=== PATIENT | female | born 1955 | race Caucasian/White ===

== ENCOUNTER 2022-11-14 11:55 | Outpatient (OUT) | payer MEDICARE, OTHER, SELFPAY ==
--- NOTE | 2022-11-14 | XR_ITS ---
The [address] [address] Patient Name: CHASE CUBA MRN: [id number] date: 1955 Sex: F Assigned Patient Location: LAB Current Patient Location: LAB Accession/Order Number: [id number] Exam Date: 11/14/2022 11:40 Report Date: 11/14/2022 13:07 At the request of: BRIAN ESPINOSA Procedure: XR chest 2V EXAM: XR chest 2V HISTORY: J84.10 . Patient fell 1 week ago. COMPARISON: None. TECHNIQUE: Upright PA and lateral chest x-ray FINDINGS: The heart is not enlarged and the vasculature is not distended. No acute infiltrate, effusion or pneumothorax is identified. A fracture of the distal right clavicle is suspected. The osseous structures are otherwise grossly intact. IMPRESSION: No acute infiltrate or evidence of cardiac decompensation. A fracture of the distal right clavicle is suspected and probably present. Direct comparison with a previous study is recommended to verify stability is findings. Electronically authenticated by: DENISE JUNIOR Date: 11/14/2022 13:07
--- NOTE | 2022-11-14 | XR_ITS ---
[address] [address] Patient Name: CHASE CUBA MRN: [id number] date: 1955 Sex: F Assigned Patient Location: LAB Current Patient Location: LAB Accession/Order Number: [id number] Exam Date: 11/14/2022 11:40 Report Date: 11/14/2022 13:44 At the request of: BRIAN ESPINOSA Procedure: XR shoulder RT min 2V EXAM: XR shoulder RT min 2V HISTORY: pain COMPARISON: None. TECHNIQUE: 3 views FINDINGS: Comminuted mildly displaced fracture of the distal right clavicle. Mild degenerative change of the acromioclavicular and glenohumeral joints. Mild soft tissue swelling. IMPRESSION: Comminuted mildly displaced fracture of the distal right clavicle. Electronically authenticated by: NASIM BARRON Date: 11/14/2022 13:44
[2022-11-14 16:14] LABS: Basophils Percent Auto 0.6 % (0.2-2.0); Eosinophils Absolute Auto 0.1 10^3/uL (0.0-0.7); Eosinophils Percent Auto 1.6 % (0.9-7.0); Hemoglobin 14.4 g/dL (12.0-16.0); Immature Granulocytes Abs Auto 0.02 10^3/uL (0.00-0.03); Immature Granulocytes Pct Auto 0.3 % (0.0-0.5); Lymphocytes Absolute Auto 1.6 10^3/uL (1.2-3.8); Lymphocytes Percent Auto 26.4 % (20.5-60.0); Mean Corpuscular HGB Conc 32.7 g/dL (29.9-35.2); Mean Corpuscular Hemoglobin 30.8 pg (26.7-34.0); Mean Corpuscular Volume 94.2 fL (81.0-99.0); Mean Platelet Volume 10.5 fL (9.5-13.5); Monocytes Absolute Auto 0.5 10^3/uL (0.3-0.8); Monocytes Percent Auto 8.6 % (1.7-12.0); Neutrophils Absolute Auto 3.9 10^3/uL (1.4-6.5); Neutrophils Percent Auto 62.5 % (43.0-75.0); Platelet Count 262 10^3/uL (150-450); Red Blood Count 4.67 10^6/uL (4.20-5.40); Red Cell Distribution Width 12.9 % (11.0-15.0); White Blood Count 6.2 10^3/uL (4.0-11.0)
[2022-11-14 16:50] LABS: Alanine Aminotransferase 46 U/L (14-59); Albumin Globulin Ratio 0.8; Albumin Level 3.8 g/dL (3.4-5.0); Alkaline Phosphatase 116 U/L (46-116); Anion Gap 13.4; Aspartate Amino Transferase 23 U/L (15-37); BUN Creatinine Ratio 19.8; Bilirubin Total 0.4 mg/dL (0.2-1.0); Calcium 9.6 mg/dL (8.5-10.1); Carbon Dioxide 26.4 mmol/L (21.0-32.0); Chloride 102 mmol/L (98-107); Estimated GFR (African America >60 (>=60); Estimated GFR (Non-African Ame >60 (>=60); Globulin 4.5 g/dL; Glucose 100 mg/dL (74-106); Potassium 3.8 mmol/L (3.5-5.1); Sodium 138 mmol/L (136-145); Total Protein 8.3 g/dL (6.4-8.2)
== END 2022-11-14 11:56 | disposition home or self-care (01) ==
LOC: LAB 12:01
PROVIDERS: PCP Family Medicine; Visit Provider Family Medicine
DX: K76.0 Fatty (change of) liver, not elsewhere classified (principal); S42.034A Nondisplaced fracture of lateral end of right clavicle, initial encounter for closed fracture; M25.511 Pain in right shoulder; J84.10 Pulmonary fibrosis, unspecified
CPT/HCPCS: 36415; 71046; 73030; 80053; 85025

== ENCOUNTER 2023-04-25 09:22 | Outpatient (OUT) | payer MEDICARE, OTHER, SELFPAY ==
--- NOTE | 2023-04-25 09:25 | US_ITS ---
The [address] [address] Patient Name: CHASE CUBA MRN: [id number] date: 1955 Sex: F Assigned Patient Location: US Current Patient Location: US Accession/Order Number: [id number] Exam Date: 04/25/2023 09:30 Report Date: 04/25/2023 10:49 At the request of: BRIAN ESPINOSA Procedure: US right upper quadrant EXAM: US right upper quadrant HISTORY: . Steatosis Of Liver K76.0 . COMPARISON: None. TECHNIQUE: Betts scale and color imaging was performed FINDINGS: The pancreas appears normal. The liver is normal in size. There is increased echogenicity of liver consistent with fatty infiltration of the liver. Color-flow is noted in the portal and hepatic veins. The gallbladder appears normal. Common bile duct is normal measuring 3 mm. Right kidney measures 11.1 x 4.7 x 4.3 cm. No solid renal cortical masses or hydronephrosis is noted. Color-flow is noted. No fluid is noted in the right upper quadrant. US/US right upper quadrant IMPRESSION: 1 increased echogenicity of liver consistent with fatty infiltration of liver. 2. The remainder the right upper quadrant was unremarkable. Electronically authenticated by: ROSELYN MCELROY Date: 04/25/2023 10:49
== END 2023-04-25 09:23 | disposition home or self-care (01) ==
LOC: US 09:22
PROVIDERS: PCP Family Medicine; Visit Provider Family Medicine
DX: K76.0 Fatty (change of) liver, not elsewhere classified (principal)
CPT/HCPCS: 76705

== ENCOUNTER 2024-11-11 11:02 | Outpatient (OUT) | payer MEDICARE, OTHER, SELFPAY ==
--- NOTE | 2024-11-11 11:14 | XR_ITS ---
The [address] [address] Patient Name: CHASE CUBA MRN: [id number] date: 1955 Sex: F Assigned Patient Location: [facility] Current Patient Location: [facility] Accession/Order Number: [id number] Exam Date: 11/11/2024 12:01 Report Date: 11/11/2024 12:03 At the request of: BRIAN ESPINOSA MD Procedure: XR hip RT 2V w/ pelvis RIGHT HIP WITH AP PELVIS - 3 views COMPARISON: None available CLINICAL DATA: Right hip pain for the past 2 days. No injury. AP view of the pelvis as well as AP and frog-lateral views of the right hip were obtained. There is osteopenia. No acute fracture or dislocation is identified. The hip joint spaces are maintained. There is minor marginal spurring at the periphery of the femoral head and subchondral cystic change at the superior acetabulum on the right. The SI joints show minor sclerosis. Subtle levoscoliotic curvature and mild degenerative changes are also visualized at the lower imaged lumbar spine. No soft tissue abnormalities are present. XR/XR hip RT 2V w/ pelvis IMPRESSION: OSTEOPENIA AND MILD DEGENERATIVE CHANGES. NO ACUTE BONY FINDINGS. Impression dictated by: Angelina Bartlett M.D. 11/11/2024 12:03 PM Dictation Location: [place] [address] Electronically authenticated by: [id number] Y Date: 11/11/2024 12:03
== END 2024-11-11 11:03 | disposition home or self-care (01) ==
LOC: RAD 11:07
PROVIDERS: PCP Family Medicine; Visit Provider Family Medicine
DX: M25.551 Pain in right hip (principal); M85.88 Other specified disorders of bone density and structure, other site
CPT/HCPCS: 73502

== ENCOUNTER 2024-11-17 08:51 | Outpatient (RCR) | payer MEDICARE, OTHER, SELFPAY | END 2024-11-18 08:10 | disposition home or self-care (01) | LOC: PT 08:51 | PROVIDERS: PCP Family Medicine; Visit Provider Family Medicine | DX: M25.551 Pain in right hip (principal) | CPT/HCPCS: 97110; 97162 ==

== ENCOUNTER 2025-01-29 08:25 | Outpatient (OUT) | payer MEDICARE, OTHER, SELFPAY ==
--- OUTSIDE RECORDS SUMMARY | 2025-01-29 08:32 | XMS_ITS | CCD ---
Author Organization [facility] Care Team Providers Care Architecture Manager Name Role Phone Luz MariaTrinidad avila Unavailable Roselyn Castillo Unavailable Brian Espinosa MD Primary Care Provider BRIAN ESPINOSA Primary Care Unavailable HARJINDER, CARMEN Referring Unavailable BRIAN ESPINOSA Primary Care Unavailable HARJINDER, CARMEN Referring Unavailable BRIAN ESPINOSA Primary Care Unavailable HARJINDER, CARMEN Referring Unavailable HARJINDER, CARMEN Attending Unavailable HARJINDER, CARMEN Attending Unavailable Brian Espinosa Unavailable BRIAN ESPINOSA Primary Care Physician [phone] BRIAN ESPINOSA Referring Unavailable NILL, Raghavendra Camarena Attending Unavailable NILL, Raghavendra Camarena Attending Unavailable ESPINOSA, DR BRIAN Mcwilliams Admitting Unavailable ESPINOSA, DR BRIAN Mcwilliams Primary Care Unavailable ESPINOSA, DR BRIAN Mcwilliams Consulting Unavailable ESPINOSA, DR BRIAN Mcwilliams Attending Unavailable ESPINOSA, DR BRIAN Mcwilliams Admitting Unavailable WEST, DR ROSELYN Earl Consulting Unavailable ESPINOSA, DR BRIAN Mcwilliams Primary Care Unavailable ESPINOSA, DR BRIAN Mcwilliams Attending Unavailable ESPINOSA, DR BRIAN Mcwilliams Consulting Unavailable NILL ., DR MABRY Admitting Unavailable NILL ., DR MABRY Consulting Unavailable NILL ., DR MABRY Attending Unavailable ESPINOSA, DR BRIAN Mcwilliams Primary Care Unavailable ROSEANGLE Consulting Unavailable ESPINOZA MCNULTY Consulting Unavailable OHLIGER, ZOFIA Consulting Unavailable Brian Espinosa MD Primary Care Provider MD Brian Espinosa Primary Care Provider [phone] MD Jose Cruz Root Attending Provider [phone] Brian Espinosa MD Primary Care Provider Asaad Imad Attending Unavailable Asaad, Imad Admitting Unavailable Brian Espinosa Primary Care Unavailable Asaad, Imad Attending Unavailable Asaad, Imad Admitting Unavailable Brian Espinosa Primary Care Unavailable Brian Espinosa Primary Care Unavailable Jennifer Donaldson Attending Unavailable Jennifer Donaldson Admitting Unavailable Brian Espinosa MD Primary Care Provider LORI ADEN Attending Unavailable LILI AGOSTO Attending Unavailable LILI AGOSTO Referring Unavailable JENNIFER DONALDSON J Attending Unavailable Brian Espinosa MD Primary Care Provider [phone] Brian Espinosa MD Attending Provider [phone] Allergies Allergy Classification Reported Allergen(s) Allergy Type Date of Onset Reaction(s) Facility (13 sources) Penicillin G Drug Allergy [facility] (9 sources) Pollen Drug allergy Unknown Cards Off Other (13 sources) Sulfacetamide Drug Allergy [facility] (11 sources) Penicillins; Translations: [PENICILLINS] Drug Allergy Unknown, Weal (disorder) [facility] Comment on above: Onset Date: 04/06/20 13 (4 sources) Wheat gluten extract; Translations: [GLUTEN] Drug Allergy Intolerance [facility] (8 sources) Sulfonamides (Antibiotic); Translations: [SULFA (SULFONAMIDE ANTIBIOTICS)] Propensity to adverse reactions to drug Unknown, [facility] (2 sources) Sulfamethoxazole; Translations: [sulfamethoxazole] Drug Allergy Weal (disorder) [facility] [place] (1 source) Penicillin; Translations: [Penicillin] Drug Allergy [facility] (1 source) Penicillins Drug allergy (disorder) [facility] Repository (1 source) Sulfonamides (Antibiotic) Drug allergy (disorder) [facility] Repository (5 sources) metaxalone Drug Allergy [facility] Cards Off Other (2 sources) Azithromycin; Translations: [azithromycin] Drug Allergy Unknown Cards Off Other (2 sources) Penicillin G Potassium Drug allergy [facility] IVFXPERT Other (2 sources) Sulfacetamide Drug Allergy hives Cards Off Other (3 sources) Sulfamethoxazole / Trimethoprim Drug Allergy 013 Unknown Cards Off Other (3 sources) Allergies Reconciled Propensity to adverse reactions Unknown Cards Off Other (3 sources) Substance with penicillin structure and antibacterial mechanism of action (substance) Drug allergy 013 Unknown Cards Off Other (3 sources) Skelaxin *MUSCULOSKELETAL THERAPY AGENTS* Propensity to adverse reactions 018 Unknown Cards Off Other (3 sources) patient allergy list reviewed by nurse or physicia Propensity to adverse reactions Comment:Done Cards Off Other (2 sources) Advil Multi-Symptom Cold & Flu Drug allergy Comment:Freet ext Needs Updated. Cards Off Other (1 source) Chlorpheniramine / Ibuprofen / Phenylephrine Drug Allergy Comment:Freet ext Needs Updated. Cards Off Other (7 sources) Pollen; Translations: [pollen extracts] Allergy to substance 024 Unknown Reaction [facility] (6 sources) Gluten Propensity to adverse reactions [facility] (6 sources) House dust mite Propensity to adverse reactions [facility] Healthcare Work Phone: (6 sources) metaxalone Drug Allergy 023 [facility] (6 sources) Penicillins Drug Allergy 022 [facility] (6 sources) Sulphamethoxydiazine Propensity to adverse reactions [facility] (1 source) Penicillin Drug Allergy [facility] Repository (1 source) Penicillins Drug allergy (disorder) [facility] Rep[facility] (1 source) Sulfacetamide Drug Allergy [facility] Repository Medications Current Medications Medication Drug Class(es) Dates Sig (Normalized) Sig (Original) Biotin (1 source) Biotin Active calcium carbonate 1500 mg oral tablet (6 sources) Start: 09-04-2023 take 1 tablet by mouth once daily Calcium Carbonate (Calcium 600) 600 mg calcium (1,500 mg) tablet Active 600 MG PO Daily September 04, 2023 12:00am Complies with drug therapy diphenhydrAMINE hydrochloride 25 mg oral capsule (13 sources) Histamine-1 Receptor Antagonist Start: 11-10-2024 take 1 capsule by mouth once daily at bedtime as needed Diphenhydramine Hcl (Benadryl) 25 mg capsule Active 25 MG PO Daily at bedtime as needed November 10, 2024 12:00am Complies with drug therapy Start: 02-17-2016 End: 02-13-2022 diphenhydrAMINE HCl (BENADRY L) 2 % gel Take 25 mg by mouth. 0 02/17/2016 02/13/2022 Discontinued diphenhydramine HCl (BENADRYL ALLERGY ORAL) Take by mouth. OTC 0 Active Benadryl Active Comment on above: Take 25 mg by mouth. Take by mouth. OTC estradiol 0.1 mg/ml vaginal cream (5 sources) Estrogen Start: 03-26-20 End: 03-26-20 25 estradiol (Estrace) 0.1 MG/GM vaginal cream Indications: Vulvar irritation , Postmenopausal Insert 0.5 g into the vagina See administration instructions At bedtime twice per week 42.5 g 1 03/26/2024 03/26/2025 Active estrogens, conjugated (mcfp) 0.625 mg/ml vaginal cream (1 source) Estrogen Start: 01-16-20 25 Conjugated Estrogens 0.625 mg/gram cream Active 0.625 MG VAGINAL Daily January 15, 2025 12:00am off 5 days; repeat cycle Complies with drug therapy fexofenadine hydrochloride 180 mg oral tablet (20 sources) Histamine-1 Receptor Antagonist Start: 09-04-19 take 1 tablet by mouth once daily Fexofenadine (Mary Allergy) 180 mg tablet Active 180 MG PO Daily September 04, 2023 12:00am Complies with drug therapy Start: 02-17-2016 take 180 mg by mouth once daily Mary 180 mg, Oral, Daily, Refills(s) 0, Allergy symptoms Start Date: 02/17/16 Status: Ordered take 1 tablet by david th in the morning fexofenadine ODT (Mary ODT) 30 MG disintegrating tablet Take 30 mg by mouth in the morning. Active fexofenadine HCl (MARY ORAL) Take by mouth. 0 Active Mary Active Comment on above: Take by mouth. Magnesium (9 sources) Magnesium Active magnesium citrate 100 mg oral tablet (6 sources) Start: 09-04-2023 take 1 tablet by mouth once daily Magnesium Citrate 100 mg tablet Active 100 MG PO Daily September 04, 2023 12:00am Complies with drug therapy magnesium oxide 400 mg oral tablet (1 source) Start: 02-17-2016 take 400 mg by mouth once daily magnesium oxide 400 mg, Oral, Daily, Refills(s) 0, Prophylaxis Start Date: 02/17/16 Status: Ordered Vitamin B Complex (1 source) Vitamin B Comple x Active Vitamin D3 (1 source) Vitamin D3 Activ e Vitamin D3-Vitamin K2 125 mcg (5,000 unit)-100 mcg capsule (1 source) Start: 01-15-2025 Vitamin D3-Vitamin K2 125 mcg (5,000 unit)-100 mcg capsule Active CAP PO January 15, 2025 12:00am Complies with drug therapy Vitamin E (1 source) Vitamin E Active Zinc (8 sources) Zinc Active zinc acetate 50 mg oral capsule (2 sources) Start: 11-10-2024 take 1 capsule by mouth once daily Zinc Acetate 50 mg (zinc) capsule Active 50 MG PO Daily November 10, 2024 12:00am Complies with drug therapy Completed/Discontinued Medications Medication Drug Class(es) Dates Sig (Normalized) Sig (Original) azithromycin 250 mg oral tablet (6 sources) Macrolide Antimicrobial Start: 01-22-2024 End: 11-11-2024 Azithromycin 250 mg tablet Discontinued 0 PO .COMPLEX January 22, 2024 12:00am November 11, 2024 10:23am For 250 mg dose pack: take 500 mg today (day 1), then 250 mg for 4 days (days 2-5) PO Start: 01-22-2024 Azithromycin A ctive 0 PO .COMPLEX January 22, 2024 12:00am For 250 mg dose pack: take 500 mg today (day 1), then 250 mg for 4 days (days 2-5) PO Start: 04-30-2023 Azithromycin 2 50 MG as directed Orally 2 tabs po today, then 1 tab daily x 4 more days for 5 Apr, Active Start: 01-31-2022 End: 02-13-2022 azithromycin (ZITHROMAX) 250 mg tablet TAKE 2 TABLETS BY MOUTH ON DAY 1, THEN TAKE 1 TABLET BY MOUTH DAILY DAYS 2 THRU 5 0 01/31/2022 02/13/2022 Discontinued Comment on above: TAKE 2 TABLETS BY MO UTH ON DAY 1, THEN TAKE 1 TABLET BY MOUTH DAILY DAYS 2 THRU 5 lansoprazole 30 mg delayed release oral capsule (20 sources) Proton Pump Inhibitor Start: 2 End: take 1 capsule by mouth once daily Lansoprazole 30 mg capsule,delayed release(DR/EC) Discontinued 1 CAP PO Daily September 04, 2023 12:00am September 28, 2024 9:15am FreeTextSig: TAKE 1 CAPSULE BY MOUTH EVERY DAY; Note: Source Status: Taking; Refills: 3; Qty: 90 Capsule; Provider: Francisca Santana ( ) Start: 02-17-2016 take 30 mg by mouth once daily lansoprazole 30 mg, Oral, Daily, Refills(s) 0, Control of stomach acid Start Date: 02/17/16 Status: Ordered Comment on above: Take 30 mg by mouth once daily. Problems Active Problems Problem Classification Problem Date Documented Da te Episodic/Chronic Abdominal hernia (3 sources) Diaphragmatic hernia without obstruction or gangrene; Translations: [Diaphragmatic hernia] Onset: 2 Resolved: 2 Episodic Bacterial infection; unspecified site (1 source) Other specified bacterial agents as the cause of diseases classified elsewhere Episodic Esophageal disorders (20 sources) Gastroesophageal reflux disease; Translations: [Gastro-esophageal reflux disease without esophagitis] Onset: 3 Resolved: 3 Chronic Fracture of upper limb (1 source) Nondisplaced fracture of lateral end of right clavicle, initial encounter for closed fracture Episodic Headache; including migraine (3 sources) Migraine without aura, not refractory ; Translations: [Migraine, unspecified, not intractable, without status migrainosus] Onset: 5 Chronic Joint disorders and dislocations; trauma-related (3 sources) Other spontaneous disruption of medial collateral ligament of right knee; Translations: [Other spontaneous disruption of medial collateral ligament of right knee] Onset: 5 Chronic Mycoses (6 sources) Leti infection of genital region; Translations: [Acute candidiasis of vulva and vagina] 09-04-2023 Episodic Nutritional deficiencies (10 sources) Vitamin D deficiency; Translations: [Vitamin D deficiency, unspecified] Onset: 7 09-04-2023 Chronic Osteoarthritis (2 sources) Osteoarthritis of joint of bilateral hands; Translations: [Primary osteoarthritis, right hand] Chronic Other and unspecified benign neoplasm (18 sources) History of polyp of colon; Translations: [Personal history of colonic polyps] Onset: 3 Episodic Other and unspecified benign neoplasm (1 source) Polyp of colon Episodic Other bone disease and musculoskeletal deformities (3 sources) Bone density finding; Translations: [Other specified disorders of bone density and structure, unspecified site] Episodic Other circulatory disease (3 sources) Elevated blood-pressure reading without diagnosis of hypertension; Translations: [Elevated blood-pressure reading, without diagnosis of hypertension] Episodic Other connective tissue disease (1 source) Disorder of muscle; Translations: [Disorder of muscle, unspecified] Episodic Other connective tissue disease (1 source) Disorder of muscle, unspecified; Translations: [Disorder of muscle, unspecified] Onset: 2 Episodic Other diseases of veins and lymphatics (16 sources) Peripheral venous insufficiency; Translations: [Venous insufficiency (chronic) (peripheral)] 09-07-2022 Episodic Other eye disorders (1 source) Dry eyes; Translations: [Dry eye syndrome of bilateral lacrimal glands] Episodic Other eye disorders (1 source) Dry eye syndrome of bilateral lacrimal glands; Translations: [Dry eyes] Onset: 2 Episodic Other female genital disorders (2 sources) Vulval irritation; Translations: [Other specified noninflammatory disorders of vulva and perineum] 03-26-2024 Episodic Other gastrointestinal disorders (20 sources) Celiac disease; Translations: [Celiac disease] Onset: 8 Chronic Other gastrointestinal disorders (5 sources) Celiac disease; Translations: [Celiac disease] Onset: 2 09-04-2023 Chronic Other liver diseases (11 sources) Steatosis of liver; Translations: [Fatty (change of) liver, not elsewhere classified] 09-04-2023 Chronic Other liver diseases (7 sources) Fatty (change of) liver, not elsewhere classified; Translations: [Other chronic nonalcoholic liver disease] Onset: 4 Chronic Other liver diseases (2 sources) Elevated liver enzymes level; Translations: [Abnormal levels of other serum enzymes] 01-15-2025 Episodic Other lower respiratory disease (11 sources) Pulmonary granuloma; Translations: [Pulmonary fibrosis, unspecified] 09-04-2023 Chronic Other lower respiratory disease (1 source) Pulmonary fibrosis, unspecified Chronic Other non-traumatic joint disorders (3 sources) Multiple joint pain; Translations: [Pain in unspecified joint] Episodic Other non-traumatic joint disorders (1 source) Pain in unspecified joint; Translations: [Pain in joint involving multiple sites] Onset: 2 Episodic Other non-traumatic joint disorders (1 source) Pain in right shoulder Episodic Other non-traumatic joint disorders (4 sources) Hip pain; Translations: [Pain in right hip] 11-11-2024 Episodic Other nutritional; endocrine; and metabolic disorders (9 sources) Hypomagnesemia; Translations: [Hypomagnesemia] 09-04-2023 Chronic Other nutritional; endocrine; and metabolic disorders (1 source) Overweight in adulthood with body mass index of 25 or more but less than 30 09-12-2022 Episodic Other nutritional; endocrine; and metabolic disorders (6 sources) Body mass index 25-29 - overweight; Translations: [Body mass index (BMI) 29.0-29.9, adult] Episodic Other screening for suspected conditions (not mental disorders or infectious disease) (3 sources) Breast neoplasm screening status; Translations: [Encounter for screening mammogram for malignant neoplasm of breast] Onset: 4 03-26-2024 Episodic Other skin disorders (5 sources) Localized swelling, mass and lump, left lower limb; Translations: [LOC SWELL MASS LUMP LT LOWER LIMB] Onset: 3 Episodic Other skin disorders (2 sources) Lentiginosis; Translations: [Other melanin hyperpigmentation] 09-15-2024 Episodic Other skin disorders (2 sources) Seborrheic keratosis; Translations: [Other seborrheic keratosis] 09-15-2024 Episodic Other skin disorders (2 sources) Asteatosis cutis; Translations: [Xerosis cutis] 09-15-2024 Episodic Other skin disorders (2 sources) History of actinic keratosis; Translations: [Personal history of diseases of the skin and subcutaneous tissue] 09-15-2024 Episodic Other upper respiratory disease (9 sources) Allergic rhinitis; Translations: [Allergic rhinitis, unspecified] 09-04-2023 Chronic Other upper respiratory disease (9 sources) Seasonal allergic rhinitis; Translations: [Other seasonal allergic rhinitis] Onset: 7 09-04-2023 Chronic Other upper respiratory infections (9 sources) Chronic sinusitis; Translations: [Chronic sinusitis, unspecified] 09-04-2023 Chronic Other upper respiratory infections (20 sources) Acute pharyngitis, unspecified; Translations: [Acute upper respiratory infection, unspecified] Onset: 3 Resolved: 2 Episodic Otitis media and related conditions (18 sources) Non-suppurative otitis media; Translations: [Unspecified nonsuppurative otitis media, left ear] Onset: 8 09-04-2023 Episodic Prolapse of female genital organs (2 sources) Midline cystocele; Translations: [Cystocele, midline] 03-26-2024 Chronic Residual codes; unclassified (9 sources) Family history of breast cancer; Translations: [Family history of malignant neoplasm of breast] 09-04-2023 Episodic Residual codes; unclassified (3 sources) Family history of diabetes mellitus; Translations: [Family history of diabetes mellitus] Episodic Residual codes; unclassified (3 sources) Requires influenza virus vaccination; Translations: [Need for prophylactic vaccination and inoculation, Influenza] Episodic Residual codes; unclassified (2 sources) Postmenopausal state; Translations: [Asymptomatic menopausal state] 03-26-2024 Episodic Residual codes; unclassified (1 source) Asymptomatic menopausal state; Translations: [Asymptomatic menopausal state] Onset: 4 Episodic Unclassified (1 source) Recheck Onset: 2 Unclassified (4 sources) Acute candidiasis of vulva and vagina; Translations: [Acute candidiasis of vulva and vagina] Onset: 4 Varicose veins of lower extremity (16 sources) Pain co-occurrent and due to varicose veins of bilateral legs; Translations: [Varicose veins of bilateral lower extremities with pain] 09-07-2022 Episodic Viral infection (6 sources) Disease caused by 2019-nCoV; Translations: [COVID-19] 09-04-2023 Episodic Viral infection (7 sources) COVID-19; Translations: [Disease caused by 2019-nCoV] Onset: 2 Past or Other Problems Problem Classification Problem Date Documented Date Episodic/Chronic Allergic reactions (9 sources) Contact dermatitis; Translations: [Unspecified contact dermatitis, unspecified cause] Onset: 01-04-2016 09-04-2023 Episodic Genitourinary symptoms and ill-defined conditions (9 sources) Dysuria; Translations: [Dysuria] Onset: 07-07-2018 09-04-2023 Episodic Immunizations and screening for infectious disease (2 sources) Anti-nuclear factor positive; Translations: [Other specified abnormal immunological findings in serum] Onset: 10-20-2021 Episodic Nonmalignant breast conditions (3 sources) Breast lump; Translations: [Unspecified lump in unspecified breast] Onset: 06-03-2017 Episodic Nonspecific chest pain (3 sources) Precordial pain; Translations: [Precordial pain] Onset: 12-13-2017 Episodic Other and unspecified benign neoplasm (1 source) Personal history of colonic polyps Onset: 12-28-2021 Resolved: 12-28-2021 Episodic Other connective tissue disease (9 sources) Spasm; Translations: [Cramp and spasm] Onset: 03-04-2017 09-04-2023 Episodic Residual codes; unclassified (3 sources) C/O - a back symptom; Translations: [Other symptoms referable to back] Onset: 12-13-2017 Episodic Results Test Name Value Interpretation Reference Range Facility MM screening mammo BI w/CADo n 05-05-2024 MM screening mammo BI w/CAD [facility] [place] [address] Mammography Report Signed Patient: Margarita Cuba MR#: [id number] : 1955 Acct:[id number] Age/Sex: 68 / F ADM Date: 05/04/24 Loc: [place] [facility]: [facility] Att[facility] Dr: Jennifer Donaldson DO Copies to: MD ANIKA Valadez MONA DO Ordering Provider: JENNIFER DONALDSON DO Date of Service: 05/04/24 MM/MM screening mammo BI w/CAD: screening BILATERAL Screening Full Field digital mammogram with 3-D imaging. Full field digital CC and MLO imaging performed. CAD utilized. COMPARISON: 03/13/2023 HISTORY: Annual screening BREAST COMPOSITION: Scattered fibroglandular densities of the breast parenchyma identified BREAST CALCIFICATIONS: Benign calcifications present. VASCULAR CALCIFICATIONS: Present ARCHITECTURAL DISTORTION: None BREAST NODULE: None AXILLARY LYMPH NODES: Normal POSTSURGICAL CHANGES: None MM/MM screening mammo BI w/CAD IMPRESSION: No mammographic evidence of malignancy. Routine follow-up recommended in one year. RESULT CODE: 2 Benign Findings(s) DENSITY CODE: 2 (approximately 25-50% glandular) FOLLOW UP: 1YR THE FALSE-NEGATIVE RATE OF MAMMOGRAPHY IS APPROXIMATELY 10%. IMAGING OF A PALPABLE ABNORMALITY MUST BE BASED ON CLINICAL GROUNDS. PATIENT WAS ENTERED INTO A REMINDER SYSTEM WITH A TARGET DUE DATE FOR THE NEXT MAMMOGRAM. Impression dictated by: Fabrice Leal M.D.05/05/2024 9:07 AM Dictation Location: [facility] Transcribed By: [facility] 05/05/24 09 Dictated By: Fabrice Leal DO 05/05/24 09 Signed By: 05/05/24 0907 Normal [facility] MINOR Antinuclear Antibodieson 09-04-2023 Antinuclear Abs, IFA Positive Critically abnormal . [facility] Comment on above: Result Comment: Nega tive <1:80 Borderline 1:80 Positive >1:80 Performed By: #### H AABT, HBSAB, HBCAB, HBSAG, CERULOP, MITOM2, ALPHA PHEN, IGG, MINOR, SMAB, ZINC,WB, L-K MICRO, HEMOCHROM, HAAB, HCBIGM, HCV RX PCR #### [facility] , #### HEPATIC, MG, INESSA, [id number] #### [facility] [address] [place] [address] Homogeneous Pattern 1:160 High . [facility] Comment on above: Result Comment: ICAP nomenclature: AC-1 Performed By: #### H AABT, HBSAB, HBCAB, HBSAG, CERULOP, MITOM2, ALPHA PHEN, IGG, MINOR, SMAB, ZINC,WB, L-K MICRO, HEMOCHROM, HAAB, HCBIGM, HCV RX PCR #### [facility] , #### HEPATIC, MG, INESSA, [id number] #### [facility] [address] Note 1 Normal . [facility] Comment on above: Result Comment: Shayna fall Potential Disease Association Homogeneous Systemic Lupus Erythematosus, Drug Induced Systemic Lupus Erythematosus, Chronic Autoimmune hepatitis, Juvenile Idiopathic Arthritis Speckled Sjogren Syndrome, Systemic Lupus Erythematosus, Subacute Cutaneous Lupus, Lupus, Congenital Heart Block, Mixed Connective Tissue Disease, Scleroderma-diffuse, Scleroderma-Autoimmune Myositis Overlap Syndrome, Systemic Lupus Axndvmdadifgp-Yhfnnmmwxex-Weiqvsugrx Myositis Overlap Syndrome, Systemic Autoimmune Rheumatic Disease, Undifferentiated Connective Tissue Disease Nucleolar Systemic Sclerosis, Scleroderma-Autoimmune Myositis Overlap Syndrome, Sjogren Syndrome, Raynaud phenomenon, Pulmonary Arterial Hypertension, Systemic Autoimmune Rheumatic Disease, Cancer Centromere Scleroderma-CREST, Limited Cutaneous SSc, Raynaud's Phenomenon, Primary Biliary Cholangitis Nuclear Dot Primary Biliary Cholangitis Nuclear Primary Biliary Cholangitis, Autoimmune Membrane Hepatitis/Liver disease, Systemic Autoimmune Rheumatic Disease, Autoimmune Cytopenias, Linear Scleroderma, Antiphospholipid Syndrome Performed at: - [facility] [id number] [employer]: Owen Carroll PhD, Phone: [phone] Performed By: #### H AABT, HBSAB, HBCAB, HBSAG, CERULOP, MITOM2, ALPHA PHEN, IGG, MINOR, SMAB, ZINC,WB, L-K MICRO, HEMOCHROM, HAAB, HCBIGM, HCV RX PCR #### [facility] , #### HEPATIC, MG, INESSA, [id number] #### [address] Actin smooth muscle IgG Ab [ Units/volume] in SerumOrdered By: Imad Asaad on 09-04-2023 Actin smooth muscle IgG Qn (S) 8 Units 0-19 [facility] Comment on above: Negative 0 - 19 Weak positive 20 - 30 Moderate to strong positive >30 Actin Antibodies are found in 52-85% of patients with autoimmune hepatitis or chronic active hepatitis and in 22% of patients with primary biliary cirrhosis. Alanine aminotransferase [En zymatic activity/volume] in Serum or PlasmaOrdered By: Imad Asaad on 09-04-2023 ALT [Catalytic activity/Vol] 23 U/L Normal 7-52 [facility] Comment on above: Performed By: #### H AABT, HBSAB, HBCAB, HBSAG, CERULOP, MITOM2, ALPHA PHEN, IGG, MINOR, SMAB, ZINC,WB, L-K MICRO, HEMOCHROM, HAAB, HCBIGM, HCV RX PCR #### [facility] , #### HEPATIC, MG, INESSA, [id number] #### [facility] [address] Albumin [Mass/volume] in Ser um or Plasma by Bromocresol green (BCG) dye binding methoOrdered By: Imad Asaad on 09-04-2023 Albumin BCG dye [Mass/Vol] 4.7 g/dL 3.5-5.7 [facility] Alkaline phosphatase [Enzyma tic activity/volume] in Serum or PlasmaOrdered By: Imad Asaad on 09-04-2023 ALP [Catalytic activity/Vol] 72 U/L Normal 34-104 [facility] Comment on above: Performed By: #### H AABT, HBSAB, HBCAB, HBSAG, CERULOP, MITOM2, ALPHA PHEN, IGG, MINOR, SMAB, ZINC,WB, L-K MICRO, HEMOCHROM, HAAB, HCBIGM, HCV RX PCR #### [facility] , #### HEPATIC, MG, INESSA, [id number] #### [address] [id number] Phenotyp ameena 09-04-2023 Alpha 1 Anti-Trypsin 138 mg/dL Normal 101-187 [facility] Comment on above: Performed By: #### H AABT, HBSAB, HBCAB, HBSAG, CERULOP, MITOM2, ALPHA PHEN, IGG, MINOR, SMAB, ZINC,WB, L-K MICRO, HEMOCHROM, HAAB, HCBIGM, HCV RX PCR #### [facility] , #### HEPATIC, MG, INESSA, [id number] #### [address] Phenotype (P1) MM Normal . [facility] Comment on above: Result Comment: Phen otype Population A-1-AT Concentration* Incidence % % of MM (Typical Range) MM 86.5% 100% (96 - 189) MS 8.0% 86% (83 - 161) MZ 3.9% 61% (60 - 111) FM 0.4% 100% (93 - 191) SZ 0.3% 41% (42 - 75) SS 0.1% 64% (62 - 119) ZZ 0.05% 19% (16 - 38) FS 0.05% 70% (70 - 128) FZ Unknown 46% (44 - 88) FF Unknown Unknown *A-1-AT concentration in the homozygous MM phenotype is taken as the reference normal. Percent deficiency in each phenotype is reported relative to this reference. Ranges used to confirm phenotype. Performed at: [address] [id number] [employer]: Owen Carroll PhD, Phone: [phone] Performed at: [address] [id number] [employer]: Breezy Durán MD, Phone: [phone] Performed By: #### H AABT, HBSAB, HBCAB, HBSAG, CERULOP, MITOM2, ALPHA PHEN, IGG, MINOR, SMAB, ZINC,WB, L-K MICRO, HEMOCHROM, HAAB, HCBIGM, HCV RX PCR #### [facility] , #### HEPATIC, MG, INESSA, [id number] #### [address] Aspartate aminotransferase [ Enzymatic activity/volume] in Serum or PlasmaOrdered By: Jose Cruz Root on 09-04-2023 AST [Catalytic activity/Vol] 19 U/L Normal 13-39 [facility] Comment on above: Performed By: #### H AABT, HBSAB, HBCAB, HBSAG, CERULOP, MITOM2, ALPHA PHEN, IGG, MINOR, SMAB, ZINC,WB, L-K MICRO, HEMOCHROM, HAAB, HCBIGM, HCV RX PCR #### [facility] , #### HEPATIC, MG, INESSA, [id number] #### [place] [address] [place] Bilirubin.direct [Mass/volum e] in Serum or PlasmaOrdered By: lacey Root on 09-04-2023 Bilirubin.direct [Mass/Vol] 0.10 mg/dL 0.03-0.18 [facility] Bilirubin.total [Mass/volume ] in Serum or PlasmaOrdered By: Jose Cruz Root on 09-04-2023 Bilirubin [Mass/Vol] 0.7 mg/dL Normal 0.3-1.0 [facility] Comment on above: Performed By: #### H AABT, HBSAB, HBCAB, HBSAG, CERULOP, MITOM2, ALPHA PHEN, IGG, MINOR, SMAB, ZINC,WB, L-K MICRO, HEMOCHROM, HAAB, HCBIGM, HCV RX PCR #### [facility] , #### HEPATIC, MG, INESSA, [id number] #### [facility] [address] Blood or tissue HFE gene mut ations identification by molecular genetics methodOrdered By: Jose Cruz Root on 09-04-2023 HFE gene targeted mutation analysis Molgen Nom (Bld/Tiss) See comment . [facility] Comment on above: Result:c.845G>A (p.C mb309Dkc) - Not Detectedc.187C>G (p.Kdz57Zpy) - Not Detectedc.193A>T (p.Tln02Bjk) - Not DetectedNot associated with increased risk to develop clinicalsymptoms of Hereditary Hemochromatosis. In symptomaticindividuals, other causes of iron overload should beevaluated. See Additional Information and Comments.Additional Clinical Information:Hereditary hemochromatosis (HFE related) is an autosomalrecessive iron storage disorder. Patients may have agenetic diagnosis of hereditary hemochromatosis and nevershow clinical symptoms. Clinical symptoms typically appearbetween 40 to 60 years in males and after menopause infemales. Signs and symptoms may include organ damage,primarily in the liver, risk for hepatocellularcarcinoma, diabetes, and heart disease due to ironaccumulation. Life expectancy may be decreased inindividuals who develop cirrhosis. Treatment forclinically symptomatic individuals may includetherapeutic phlebotomy. Liver transplant may be used totreat end stage liver failure. For preventive care,monitoring for iron overload is recommended for patientswho are homozygous for c.845G>A (p.Xkr013Lva) and have yetto experience clinical symptoms.Comments:The most common HFE variants associated with hereditaryhemochromatosis are c.845G>A (p.Dgw302Rby), c.187C>G(p.Dqa87Uem), c.193A>T (p.Jgb18Upj). While patientshomozygous for c.845G>A (p.Non337Mfy) are the most likelyto present clinical symptoms, less than 10% developclinically significant iron overload with tissue and organdamage.Genetic counseling is recommended to discuss the potentialclinical implications of positive results, as well asrecommendations for testing family members.Genetic Coordinators are available for health careproviders to discuss results at [phone]).Test Details:Three variants analyzed:c.845G>A (p.Jnw692Umn), commonly referred to as C282Yc.187C>G (p.Qge09Lua), commonly referred to as H63Dc.193A>T (p.Bcl72Bbz), commonly referred to as Q30OVwvcknt/Limitations:DNA Analysis of the HFE gene (NM_000410.4) was performedby PCR amplification followed by restriction enzymedigestion analyses. Results must be combined with clinicalinformation for the most accurate interpretation. Molecular-based testing is highly accurate, but as in any laboratorytest, diagnostic errors may occur. False positive or falsenegative results may occur for reasons that include geneticvariants, blood transfusions, bone marrow transplantation,somatic or tissue-specific mosaicism, mislabeled samples,or erroneous representation of family relationships.This test was developed and its performancecharacteristics determined by [employer]. It has not beencleared or approved by the Food and Drug Administration.References:Sameer BR, Avel PC, Noemí KV, Haim LW, Sunshine ;[place] [employer] the Study [employer] Liver Diseases.Diagnosis and management of hemochromatosis: 2011 practiceguideline by the [place] Association for the Study ofLiver Diseases. Hepatology. 2011 Nov;54(1):328-43. doi:10.1002/hep.78602. PMID: 05760640; PMCID: [id number].Chuy G, Gris P, Bethany DW, Ap H, Maximiliano O,Juanpablo S, Quinn I, Rico M, Dov Giordano. [facility] best practiceguidelines for the molecular genetic diagnosis ofhereditary hemochromatosis (HH). Eur J Hum Ingris. 2016Apr;24(4):479-95. doi: 10.1038/ejhg.2015.128. Epub 2014. PMID: 94817986; PMCID: [id number]. Ceruloplasminon 09-04-2023 Ceruloplasmin 26.6 mg/dL Normal 19.0-39.0 [facility] Comment on above: Result Comment: Perf ormed at: CB - [facility] [address] [id number] [employer]: Owen Carroll PhD, Phone: [phone] PERFORMED BY: [place] [address] PATHOLOGIST BOXER OPERATOR BO SINHA M.D. Performed By: #### H AABT, HBSAB, HBCAB, HBSAG, CERULOP, MITOM2, ALPHA PHEN, IGG, MINOR, SMAB, ZINC,WB, L-K MICRO, HEMOCHROM, HAAB, HCBIGM, HCV RX PCR #### [facility] , #### HEPATIC, MG, INESSA, [id number] #### [facility] [address] Ferritin [Mass/volume] in Se rum or PlasmaOrdered By: Jose Cruz Root on 09-04-2023 Ferritin [Mass/Vol] 289.9 ng/mL Normal 11.0-306.8 [facility] Comment on above: Performed By: #### H AABT, HBSAB, HBCAB, HBSAG, CERULOP, MITOM2, ALPHA PHEN, IGG, MINOR, SMAB, ZINC,WB, L-K MICRO, HEMOCHROM, HAAB, HCBIGM, HCV RX PCR #### [facility] , #### HEPATIC, MG, INESSA, [id number] #### [facility] [address] Hep C Ab wRfx to Qnt PCRon 0 09-04-2023 Hepatitis C Virus Antibody Non-Reactive Normal Non Reactive [facility] Comment on above: Performed By: #### H AABT, HBSAB, HBCAB, HBSAG, CERULOP, MITOM2, ALPHA PHEN, IGG, MINOR, SMAB, ZINC,WB, L-K MICRO, HEMOCHROM, HAAB, HCBIGM, HCV RX PCR #### [facility] , #### HEPATIC, MG, INESSA, [id number] #### [address] Interpretation Hepatitis C Normal . [facility] Comment on above: Result Comment: Not infected with HCV unless early or acute infection is suspected (which may be delayed in an immunocompromised individual), or other evidence exists to indicate HCV infection. Performed By: #### H AABT, HBSAB, HBCAB, HBSAG, CERULOP, MITOM2, ALPHA PHEN, IGG, MINOR, SMAB, ZINC,WB, L-K MICRO, HEMOCHROM, HAAB, HCBIGM, HCV RX PCR #### [facility] , #### HEPATIC, MG, INESSA, [id number] #### [address] Hepatic Panelon 09-04-2023 Albumin [Mass/Vol] 4.7 g/dL Normal 3.5-5.7 [facility] Comment on above: Performed By: #### H AABT, HBSAB, HBCAB, HBSAG, CERULOP, MITOM2, ALPHA PHEN, IGG, MINOR, SMAB, ZINC,WB, L-K MICRO, HEMOCHROM, HAAB, HCBIGM, HCV RX PCR #### [facility] , #### HEPATIC, MG, INESSA, [id number] #### [address] Bilirubin,Indirect 0.6 mg/dL Normal [facility] Comment on above: Performed By: #### H AABT, HBSAB, HBCAB, HBSAG, CERULOP, MITOM2, ALPHA PHEN, IGG, MINOR, SMAB, ZINC,WB, L-K MICRO, HEMOCHROM, HAAB, HCBIGM, HCV RX PCR #### [facility] , #### HEPATIC, MG, INESSA, [id number] #### [address] Bilirubin.indirect [Mass/Vol] 0.10 mg/dL Normal 0.03-0.18 [facility] Comment on above: Performed By: #### H AABT, HBSAB, HBCAB, HBSAG, CERULOP, MITOM2, ALPHA PHEN, IGG, MINOR, SMAB, ZINC,WB, L-K MICRO, HEMOCHROM, HAAB, HCBIGM, HCV RX PCR #### [facility] , #### HEPATIC, MG, INESSA, [id number] #### [address] Hepatitis A Antibody IgMon 0 09-04-2023 Hepatitis A Antibody IgM Negative Normal Negative [facility] Comment on above: Performed By: #### H AABT, HBSAB, HBCAB, HBSAG, CERULOP, MITOM2, ALPHA PHEN, IGG, MINOR, SMAB, ZINC,WB, L-K MICRO, HEMOCHROM, HAAB, HCBIGM, HCV RX PCR #### [facility] , #### HEPATIC, MG, INESSA, [id number] #### [address] Hepatitis A Antibody Totalon 09-04-2023 Hepatitis A Antibody Total Negative Normal Negative [facility] Comment on above: Result Comment: Comm ent: The HAV total antibody assay detects both IgG and IgM but does not differentiate between them. A negative result suggests susceptibility to infection. A positive result could be due to vaccination, previously resolved infection or active infection. Testing for HAV IgM should be performed if active HAV infection is suspected. [facility] offers profiles that will automatically reflex positive HAV total antibody results to IgM (e.g., panel #[id number] HAV Antibody w/ Rfx). Performed By: #### H AABT, HBSAB, HBCAB, HBSAG, CERULOP, MITOM2, ALPHA PHEN, IGG, MINOR, SMAB, ZINC,WB, L-K MICRO, HEMOCHROM, HAAB, HCBIGM, HCV RX PCR #### [facility] , #### HEPATIC, MG, INESSA, [id number] #### [facility] [address] [place] [address] Hepatitis A virus Ab [Presen ce] in Serum by ImmunoassayOrdered By: Jose Cruz Root on 09-04-2023 HAV Ab IA Ql (S) Negative Negative [facility] Comment on above: Comment: The HAV tot al antibody assay detects both IgG andIgM but does not differentiate between them. A negativeresult suggests susceptibility to infection. A positiveresult could be due to vaccination, previously resolvedinfection or active infection. Testing for HAV IgM shouldbe performed if active HAV infection is suspected. [facility] that will automatically reflex positive HAVtotal antibody results to IgM (e.g., panel #[id number] HAVAntibody w/ Rfx). Hepatitis B Core Antibodyon 09-04-2023 Hepatitis B Core Antibody Negative Normal Negative [facility] Comment on above: Performed By: #### H AABT, HBSAB, HBCAB, HBSAG, CERULOP, MITOM2, ALPHA PHEN, IGG, MINOR, SMAB, ZINC,WB, L-K MICRO, HEMOCHROM, HAAB, HCBIGM, HCV RX PCR #### [facility] , #### HEPATIC, MG, INESSA, [id number] #### [facility] [address] [place] [id number] [facility] Hepatitis B Core Antibody Ig Mon 09-04-2023 Hepatitis B Core Antibody IgM Negative Normal Negative [facility] Comment on above: Result Comment: Perf ormed at: - [facility] [address] [id number] [employer]: Owen Carroll PhD, Phone: [phone] Performed By: #### H AABT, HBSAB, HBCAB, HBSAG, CERULOP, MITOM2, ALPHA PHEN, IGG, MINOR, SMAB, ZINC,WB, L-K MICRO, HEMOCHROM, HAAB, HCBIGM, HCV RX PCR #### [facility] , #### HEPATIC, MG, INESSA, [id number] #### [address] Hepatitis B Surface Antibody on 09-04-2023 Hepatitis B Surface Antibody Non-Reactive Normal . [facility] Comment on above: Result Comment: Non Reactive: Inconsistent with immunity, less than 10 mIU/mL Reactive: Consistent with immunity, greater than 9.9 mIU/mL Performed By: #### H AABT, HBSAB, HBCAB, HBSAG, CERULOP, MITOM2, ALPHA PHEN, IGG, MINOR, SMAB, ZINC,WB, L-K MICRO, HEMOCHROM, HAAB, HCBIGM, HCV RX PCR #### [facility] , #### HEPATIC, MG, INESSA, [id number] #### [address] Hepatitis B Surface Antigeno n 09-04-2023 HBsAg Screen Negative Normal Negative [facility] Comment on above: Result Comment: PERF ORMED BY: [place] [address] PATHOLOGIST BOXER OPERATOR BO SINHA M.D. Performed By: #### H AABT, HBSAB, HBCAB, HBSAG, CERULOP, MITOM2, ALPHA PHEN, IGG, MINOR, SMAB, ZINC,WB, L-K MICRO, HEMOCHROM, HAAB, HCBIGM, HCV RX PCR #### [facility] , #### HEPATIC, MG, INESSA, [id number] #### [address] Hepatitis B virus surface Ab [Presence] in SerumOrdered By: Jose Cruz Root on 09-04-2023 HBV surface Ab Ql (S) Non-Reactive . [facility] Comment on above: Non Reactive: Incons istent with immunity, less than 10 mIU/mL Reactive: Consistent with immunity, greater than 9.9 mIU/mL Hepatitis B virus surface Ag [Presence] in Serum or Plasma by ImmunoassayOrdered By: Jose Cruz Root on 09-04-2023 HBV surface Ag IA Ql Negative Negative [facility] Hepatitis C virus IgG Ab [Pr esence] in Serum or Plasma by ImmunoassayOrdered By: Imlacey Root on 09-04-2023 HCV IgG IA Ql Non-Reactive Non Reactive [facility] Hereditary Hemochromatosis,D RAHULon 09-04-2023 Hereditary Hemochromatosis Normal . [facility] Comment on above: Result Comment: Resu lt: c.845G>A (p.Ogp451Ife) - Not Detected c.187C>G (p.Wvm80Eya) - Not Detected c.193A>T (p.Qqf41Wdt) - Not Detected Not associated with increased risk to develop clinical symptoms of Hereditary Hemochromatosis. In symptomatic individuals, other causes of iron overload should be evaluated. See Additional Information and Comments. Additional Clinical Information: Hereditary hemochromatosis (HFE related) is an autosomal recessive iron storage disorder. Patients may have a genetic diagnosis of hereditary hemochromatosis and never show clinical symptoms. Clinical symptoms typically appear between 40 to 60 years in males and after menopause in females. Signs and symptoms may include organ damage, primarily in the liver, risk for hepatocellular carcinoma, diabetes, and heart disease due to iron accumulation. Life expectancy may be decreased in individuals who develop cirrhosis. Treatment for clinically symptomatic individuals may include therapeutic phlebotomy. Liver transplant may be used to treat end stage liver failure. For preventive care, monitoring for iron overload is recommended for patients who are homozygous for c.845G>A (p.Mpj658Qrd) and have yet to experience clinical symptoms. Comments: The most common HFE variants associated with hereditary hemochromatosis are c.845G>A (p.Spo326Zsv), c.187C>G (p.Jpr75Ksm), c.193A>T (p.Slc20Ktk). While patients homozygous for c.845G>A (p.Hhw479Dgq) are the most likely to present clinical symptoms, less than 10% develop clinically significant iron overload with tissue and organ damage. Genetic counseling is recommended to discuss the potential clinical implications of positive results, as well as recommendations for testing family members. Genetic Coordinators are available for health care providers to discuss results at [phone] Test Details: Three variants analyzed: c.845G>A (p.Yiw178Qeo), commonly referred to as C282Y c.187C>G (p.Ast72Vxt), commonly referred to as H63D c.193A>T (p.Opz56Ynq), commonly referred to as S65C Methods/Limitations: DNA Analysis of the HFE gene (NM_000410.4) was performed by PCR amplification followed by restriction enzyme digestion analyses. Results must be combined with clinical information for the most accurate interpretation. Molecular- based testing is highly accurate, but as in any laboratory test, diagnostic errors may occur. False positive or false negative results may occur for reasons that include genetic variants, blood transfusions, bone marrow transplantation, somatic or tissue-specific mosaicism, mislabeled samples, or erroneous representation of family relationships. This test was developed and its performance characteristics determined by [employer]. It has not been cleared or approved by the Food and Drug Administration. References: Sameer BR, Avel PC, Noemí KV, Haim LW, Sunshine ; [place] [employer] for the Study of Liver Diseases. Diagnosis and management of hemochromatosis: 2011 practice guideline by the [place] [employer] the Study of Liver Diseases. Hepatology. 2011 Nov;54(1):328-43. doi: 10.1002/hep.62163. PMID: 67747584; PMCID: [id number]. Chuy G, Gris P, Bethany DW, Ap H, Maximiliano O, Juanpablo S, Quinn I, Rico M, Dov S. [facility] best practice guidelines for the molecular genetic diagnosis of hereditary hemochromatosis (HH). Eur J Hum Ingris. 2016 Aug;24(4):479-95. doi: 10.1038/ejhg.2015.128. Epub 2014Nov 24. PMID: 92652884; PMCID: [id number]. Performed By: #### H AABT, HBSAB, HBCAB, HBSAG, CERULOP, MITOM2, ALPHA PHEN, IGG, MINOR, SMAB, ZINC,WB, L-K MICRO, HEMOCHROM, HAAB, HCBIGM, HCV RX PCR #### [facility] , #### HEPATIC, MG, INESSA, [id number] #### [address] Reviewed by: Cherise Jay, PhD Normal . [facility] Comment on above: Result Comment: Perf ormed at: - [facility] [facility], [place], [place] [id number] [employer]: Sharlene White [facility], Phone: [phone] PERFORMED BY: [place] [address] PATHOLOGIST BOXER OPERATOR BO SINHA M.D. Performed By: #### H AABT, HBSAB, HBCAB, HBSAG, CERULOP, MITOM2, ALPHA PHEN, IGG, MINOR, SMAB, ZINC,WB, L-K MICRO, HEMOCHROM, HAAB, HCBIGM, HCV RX PCR #### [facility] , #### HEPATIC, MG, INESSA, [id number] #### [address] IgG [Mass/volume] in Serum o r PlasmaOrdered By: Jose Cruz Root on 09-04-2023 IgG [Mass/Vol] 1192 mg/dL [phone] [facility] Comment on above: Performed at: [address] [id number] Director: Owen Carroll PhD, Phone: [phone] Immunoglobulin Jonathan Immunoglobulin G 1192 mg/dL Normal [phone] [facility] Comment on above: Result Comment: Perf ormed at: - [facility] [address] [id number] [employer]: Owen Carroll PhD, Phone: [phone] Performed By: #### H AABT, HBSAB, HBCAB, HBSAG, CERULOP, MITOM2, ALPHA PHEN, IGG, MINOR, SMAB, ZINC,WB, L-K MICRO, HEMOCHROM, HAAB, HCBIGM, HCV RX PCR #### [facility] , #### HEPATIC, MG, INESSA, [id number] #### [address] [place] [address] [facility] Liver-Kidney Microsomal Abon 09-04-2023 Liver-Kidney Microsomal Ab 1.4 Normal 0.0-20.0 [facility] Comment on above: Result Comment: Nega tive 0.0 - 20.0 Equivocal 20.1 - 24.9 Positive >24.9 LKM type 1 antibodies are detected in patients with autoimmune hepatitis type 2 and in up to 8% of patients with chronic HCV infection. Performed at: [place] [id number] [employer]: Owen Carroll PhD, Phone: [phone] Performed By: #### H AABT, HBSAB, HBCAB, HBSAG, CERULOP, MITOM2, ALPHA PHEN, IGG, MINOR, SMAB, ZINC,WB, L-K MICRO, HEMOCHROM, HAAB, HCBIGM, HCV RX PCR #### [facility] , #### HEPATIC, MG, INESSA, [id number] #### [facility] [address] [place] [address] Magnesium [Mass/volume] in S tomy or PlasmaOrdered By: Jose Cruz Root on 09-04-2023 Magnesium [Mass/Vol] 1.9 mg/dL Normal 1.9-2.7 [facility] Comment on above: Performed By: #### H AABT, HBSAB, HBCAB, HBSAG, CERULOP, MITOM2, ALPHA PHEN, IGG, MINOR, SMAB, ZINC,WB, L-K MICRO, HEMOCHROM, HAAB, HCBIGM, HCV RX PCR #### [facility] , #### HEPATIC, MG, INESSA, [id number] #### [facility] [address] [place], [place] [id number] [place] Mitochondrial (M2) Antibodyo n 09-04-2023 Mitochondrial (M2) Antibody <20.0 Normal 0.0-20.0 [facility] Comment on above: Result Comment: Nega tive 0.0 - 20.0 Equivocal 20.1 - 24.9 Positive >24.9 Mitochondrial (M2) Antibodies are found in 90-96% of patients with primary biliary cirrhosis. Performed at: [facility] [address] [place], [place] [id number] [employer]: Owen Carroll PhD, Phone: [phone] Performed By: #### H AABT, HBSAB, HBCAB, HBSAG, CERULOP, MITOM2, ALPHA PHEN, IGG, MINOR, SMAB, ZINC,WB, L-K MICRO, HEMOCHROM, HAAB, HCBIGM, HCV RX PCR #### [facility] , #### HEPATIC, MG, INESSA, [id number] #### [facility] [address] No Panel InformationOrdered By: Jose Cruz Root on 09-04-2023 Anti-Nuclear Antibody Comment 2 See comment . [facility] Comment on above: Pattern Potential Di sease Association Homogeneous Systemic Lupus Erythematosus, Drug Induced Systemic Lupus Erythematosus, Chronic Autoimmune hepatitis, Juvenile Idiopathic Arthritis Speckled Sjogren Syndrome, Systemic Lupus Erythematosus, Subacute Cutaneous Lupus, Lupus, Congenital Heart Block, Mixed Connective Tissue Disease, Scleroderma-diffuse, Scleroderma-Autoimmune Myositis Overlap Syndrome, Systemic Lupus Qifumawlnxmpw-Sixrfnruwxy-Vzwdpkzhbe Myositis Overlap Syndrome, Systemic Autoimmune Rheumatic Disease, Undifferentiated Connective Tissue Disease Nucleolar Systemic Sclerosis, Scleroderma-Autoimmune Myositis Overlap Syndrome, Sjogren Syndrome, Raynaud phenomenon, Pulmonary Arterial Hypertension, Systemic Autoimmune Rheumatic Disease, Cancer Centromere Scleroderma-CREST, Limited Cutaneous SSc, Raynaud's Phenomenon, Primary Biliary Cholangitis Nuclear Dot Primary Biliary Cholangitis Nuclear Primary Biliary Cholangitis, AutoimmuneMembrane Hepatitis/Liver disease, Systemic Autoimmune Rheumatic Disease, Autoimmune Cytopenias, Linear Scleroderma, Antiphospholipid Syndrome Performed at: [facility] [address] [id number] Director: Owen Carroll PhD, Phone: [phone] Hemochromatosis Note Cherise jay, phd . [facility] [facility] Comment on above: Performed at: [employer] [facility] [id number] [place], [place] [id number] Director: Sharlene White [facility], Phone: [phone] Hepatitis A IgM Antibody Negative Negative [facility] Hepatitis B Core IgM Antibody Negative Negative [facility] Comment on above: Performed at: [employer] [facility] [address] [id number] Director: Owen Carroll PhD, Phone: [phone] Hepatitis B Core Total Antibody Negative Negative [facility] Hepatitis C Interpretation See comment . [facility] Comment on above: Not infected with HC V unless early or acute infection issuspected (which may be delayed in an immunocompromisedindividual), or other evidence exists to indicate HCVinfection. Whole Blood Zinc 656 ug/dL 440-860 [facility] Comment on above: This test was develo ped and its performance characteristicsdetermined by [facility]. It has not been cleared orapproved by the Food and Drug Administration.Performed at: [place] [place], [place] [id number] Director: Breezy Durán MD, Phone: [phone] Protein [Mass/volume] in Ser um or PlasmaOrdered By: Imad Asalacey on 09-04-2023 Protein [Mass/Vol] 7.5 g/dL Normal 6.4-8.9 [facility] Comment on above: Performed By: #### H AABT, HBSAB, HBCAB, HBSAG, CERULOP, MITOM2, ALPHA PHEN, IGG, MINOR, SMAB, ZINC,WB, L-K MICRO, HEMOCHROM, HAAB, HCBIGM, HCV RX PCR #### [facility] , #### HEPATIC, MG, INESSA, [id number] #### [facility] [address] Serum mhney-4-shttydwnybt me asurementOrdered By: Imad Asaad on 09-04-2023 Alpha 1 antitrypsin [Mass/Vol] 138 mg/dL 101-187 [facility] Serum globulin measurement b y calculation (mass/volume)Ordered By: Imad Asaad on 09-04-2023 Globulin (S) [Mass/Vol] 2.8 g/dL Normal [facility] Comment on above: Performed By: #### H AABT, HBSAB, HBCAB, HBSAG, CERULOP, MITOM2, ALPHA PHEN, IGG, MINOR, SMAB, ZINC,WB, L-K MICRO, HEMOCHROM, HAAB, HCBIGM, HCV RX PCR #### [facility] , #### HEPATIC, MG, INESSA, [id number] #### [facility] [address] Serum homogeneous pattern an tinuclear antibody (MINOR) titerOrdered By: Imad Asaad on 09-04-2023 Homogenous nuclear Ab pattern (S) [Titer] 1:160 High . [facility] Comment on above: ICAP nomenclature: A C-1 Serum mitochondria M2 IgG an tibody assay (units/volume)Ordered By: Jose Cruz Root on 09-04-2023 Mitochondria M2 IgG Qn (S) <20.0 Units 0.0-20.0 [facility] Comment on above: Negative 0.0 - 20.0 Equivocal 20.1 - 24.9 Positive >24.9Mitochondrial (M2) Antibodies are found in 90-96% ofpatients with primary biliary cirrhosis.Performed at: [facility] [employer] [id number] Director: Owen Carroll PhD, Phone: [phone] Serum nuclear antibody titer Ordered By: Jose Cruz Root on 09-04-2023 Nuclear Ab (S) [Titer] Positive Abnormal . [facility] Comment on above: Negative <1:80 Borde rline 1:80 Positive >1:80 Serum or plasma albumin/glob ulin mass ratioOrdered By: lacey Root on 09-04-2023 Albumin/Globulin [Mass ratio] 1.7 {ratio} Normal [facility] Comment on above: Performed By: #### H AABT, HBSAB, HBCAB, HBSAG, CERULOP, MITOM2, ALPHA PHEN, IGG, MINOR, SMAB, ZINC,WB, L-K MICRO, HEMOCHROM, HAAB, HCBIGM, HCV RX PCR #### [facility] , #### HEPATIC, MG, INESSA, [id number] #### [facility] [address] [place] [address] Serum or plasma alpha 1 anti trypsin phenotyping identification by immunofixationOrdered By: lacey Valdes on 09-04-2023 Alpha 1 antitrypsin phenotyping Immunofixation Nom Mm . [facility] Comment on above: Phenotype Population A-1-AT Concentration* Incidence % % of MM (Typical Range) MM 86.5% 100% (96 - 189) MS 8.0% 86% (83 - 161) MZ 3.9% 61% (60 - 111) FM 0.4% 100% (93 - 191) SZ 0.3% 41% (42 - 75) SS 0.1% 64% (62 - 119) ZZ 0.05% 19% (16 - 38) FS 0.05% 70% (70 - 128) FZ Unknown 46% (44 - 88) FF Unknown Unknown*A-1-AT concentration in the homozygous MM phenotype is taken as the reference normal. Percent deficiency in each phenotype is reported relative to this reference. Ranges used to confirm phenotype.Performed at: [employer] [address] [id number] Director: Owen Carroll PhD, Phone: [phone] at: [facility] [employer] [id number] Director: Breezy Durán MD, Phone: [phone] Serum or plasma ceruloplasmi n measurement (mass/volume)Ordered By: Jose Cruz Root on 09-04-2023 Ceruloplasmin [Mass/Vol] 26.6 mg/dL 19.0-39.0 [facility] Comment on above: Performed at: [facility] [address] [id number] Director: Owen Carroll PhD, Phone: [phone] Serum or plasma lipoprotein a measurement (moles/volume)Ordered By: Jose Cruz Root on 09-04-2023 Lipoprotein a [Moles/Vol] 1.4 Units 0.0-20.0 [facility] Comment on above: Negative 0.0 - 20.0 Equivocal 20.1 - 24.9 Positive >24.9LKM type 1 antibodies are detected in patients withautoimmune hepatitis type 2 and in up to 8% ofpatients with chronic HCV infection.Performed at: [facility] [place] [id number] Director: Owen Carroll PhD, Phone: [phone] Serum or plasma non-glucuron idated bilirubin measurement (mass/volume)Ordered By: Jose Cruz Root on 09-04-2023 Bilirubin.indirect [Mass/Vol] 0.6 mg/dL [facility] Smooth Muscle Antibodyon Smooth Muscle Antibody 8 Normal 0-19 e [facility] Comment on above: Result Comment: Nega tive 0 - 19 Weak positive 20 - 30 Moderate to strong positive >30 Actin Antibodies are found in 52-85% of patients with autoimmune hepatitis or chronic active hepatitis and in 22% of patients with primary biliary cirrhosis. Performed By: #### H AABT, HBSAB, HBCAB, HBSAG, CERULOP, MITOM2, ALPHA PHEN, IGG, MINOR, SMAB, ZINC,WB, L-K MICRO, HEMOCHROM, HAAB, HCBIGM, HCV RX PCR #### [facility] , #### HEPATIC, MG, INESSA, [id number] #### [facility] [address] [place] [id number] [facility] Vitamin D 25 Hydroxy Totalon 09-04-2023 Vitamin D 25 Hydroxy Total 86.6 ng/mL Normal 30-100 [facility] Comment on above: Result Comment: CRISTIAN MIN D STATUS 25(OH)VITAMIN D RANGE (ng/mL) Deficient <20 Insufficient 20 to <30 Sufficient 30 to 100 Reference: Debbie MF,[place], Beni REN, et al. Evaluation,treatment, and prevention of vitamin D deficiency; an Endocrine Society clinical practice guideline. JCEM. 2010; 96(7):1911-30. PERFORMED BY: [place] [address] PATHOLOGIST BOXER OPERATOR BO SINHA M.D. Performed By: #### H AABT, HBSAB, HBCAB, HBSAG, CERULOP, MITOM2, ALPHA PHEN, IGG, MINOR, SMAB, ZINC,WB, L-K MICRO, HEMOCHROM, HAAB, HCBIGM, HCV RX PCR #### [facility] , #### HEPATIC, MG, INESSA, [id number] #### [facility] [address] [place] [id number] [facility] Vitamin D+Metabolites [Mass/ volume] in Serum or PlasmaOrdered By: Jose Cruz Root on 09-04-2023 Vitamin D+Metabolites [Mass/Vol] 86.6 ng/mL 30-100 [facility] Comment on above: VITAMIN D STATUS 25( OH)VITAMIN D RANGE (ng/mL) Deficient <20 Insufficient 20 to <30Sufficient 30 to 100Reference: Debbie MF,[place], Beni REN, et al. Evaluation,treatment, and prevention of vitamin D deficiency; an Endocrine Society clinical practice guideline. JCEM. 2010; 96(7):1911-30. Zinc, Whole Bloodon 09-04-19 24 Zinc, Whole Blood 656 ug/dL Normal 440-860 [facility] Comment on above: Result Comment: This test was developed and its performance characteristics determined by [facility]. It has not been cleared or approved by the Food and Drug Administration. Performed at: [address] [id number] [employer]: Breezy Durán MD, Phone: [phone] Performed By: #### H AABT, HBSAB, HBCAB, HBSAG, CERULOP, MITOM2, ALPHA PHEN, IGG, MINOR, SMAB, ZINC,WB, L-K MICRO, HEMOCHROM, HAAB, HCBIGM, HCV RX PCR #### [facility] , #### HEPATIC, MG, INESSA, [id number] #### [facility] [address] Consent for Procedure/Surger yon 09-13-2022 Consent for Procedure/Surgery [id number]:12 7 Normal [facility] Facesheeton 09-13-2022 Facesheet [id number]#[id number]:12 7 Normal [facility] Ambulatory Visit Summaryon 0 09-12-2022 Ambulatory Visit Summary MARGARITA CUBA :1955 Visit Date:09/12/2022 Ambulatory Visit Instructions Your Diagnosis Personal history of colonic polyps Hiatal hernia with GERD, Diaphragmatic hernia without obstruction or gangrene Your Care Team Attending Physician - XANDER GREEN, Raghavendra Camarena Primary Care Physician - FRANCISCA GREEN, BRIAN This Is Your Medications List Contact prescribing physician if questions or concerns fexofenadine (Mary) lansoprazole magnesium oxide Procedures Performed EGD - Esophagogastroduodenoscop y (02/20/2016), Colonoscopy (10/02/2013), EGD - Esophagogastroduodenoscop y (10/02/2013), Colonoscopy (05/02/2007), Appendectomy, Arthroscopy of knee, Bunionectomy, Dilation and curettage, Dilation and curettage, Rotator cuff repair. Discharge Vitals Heart Rate (Peripheral) 70 Respiratory Rate 16 Blood Pressure 122/86 Height 167.6 cm Height 66 in Weight 79.9 kg Weight 175.78 lb BMI 28.44 Medications What How Much When Instructions Unchanged fexofenadine (Mary) 180 Milligram By Mouth Every day Contact prescribing physician if questions or concerns Unchanged lansoprazole 30 Milligram By Mouth Every day Contact prescribing physician if questions or concerns Unchanged magnesium oxide 400 Milligram By Mouth Every day Contact prescribing physician if questions or concerns Medications and Immunizations Administered Not Given influenza virus vaccine, inactivated, Patient Refuses Allergies Penicillin (Hives) sulfamethoxazole (Hives) Problems Ongoing - Any problem that you are currently receiving treatment for. BMI 28.0-28.9,adult Celiac disease Hiatal hernia with GERD History of polyp of colon Peripheral venous insufficiency Personal history of colonic polyps Varicose veins of legs Historical - Any problem that you are no longer receiving treatment for. Gastroesophageal reflux disease Normal [facility] US EXT NON VASC LIMITED LTon 09-03-2022 US EXT NON VASC LIMITED LT EXAMINATION: US EXT NON VASC LIMITED LT HISTORY: Localized swelling of left lower limb COMPARISON: No relevant comparison available. FINDINGS: Identified in the area the patient's palpable mass is a focal area of heterogeneous hyper echogenicity measuring 1.8 x 1.1 x 1.9 cm. This is isovascular to the surrounding tissue IMPRESSION: 1.9 cm hyperechogenic lesion, nonspecific. Possibly a lipoma Electronically authenticated by: ROSELYN PEREZ Date: 2022-09-03 18:23 Normal [facility] Physician Referralon 023 Physician Referral [id number]#[id number]:12 7 Normal [facility] 25(OH)D3 SerPl-mCncon 2021 25-hydroxyvitamin D3 [Mass/Vol] 56.6 ng/mL Normal 31.0-80.0 [facility] Comment on above: Order Comment: Kathleen munoz Type: BLOOD SPECIMEN [facility] Address: [address] [place] [address] Result Comment: Clas sification of 25 [place] Vitamin D status: Deficiency/Insufficiency: < or = 30 ng/ml. Sufficiency/Optimal Levels: 31-80 ng/mL Toxicity: > 100 ng/mL. Test performed by chemiluminescent immunoassay. Performed By: #### 1 988-5, 3016-3, 41749-3 #### [facility] CLIA [id number] [address] [place] [address] STATES OF [facility] MINOR BY IFA WITH REFLEXon MINOR PATTERN Nuclear homogenous Normal [facility] Comment on above: Order Comment: Kathleen munoz Type: BLOOD SPECIMEN [facility] Address: [address] [place] [address] Performed By: #### 4 537-7 #### [facility] CLIA [id number] [address] [place] [address] OF [facility] MINOR TITER 1:80 Normal [facility] Comment on above: Order Comment: Kathleen munoz Type: BLOOD SPECIMEN [facility] Address: [address] [place] [address] Performed By: #### 4 537-7 #### [facility] CLIA [id number] [address] [place] [address] Nuclear Ab IF (S) [Titer] Positive Abnormal Negative [facility] Comment on above: Order Comment: Kathleen munoz Type: BLOOD SPECIMEN [facility] Address: [address] [place] [address] Result Comment: Anti -nuclear antibody test is used as an aid in diagnosis of systemic autoimmune diseases. Where positive and clinically warranted, follow-up using disease-specific testing is recommended. Low positive titers are not uncommon with advanced age, certain chronic infections, and malignancies among others. Test methodology: Indirect fluorescence immunoassay (IFA) using HEp-2 cells. Performed By: #### 4 537-7 #### [facility] CLIA [id number] [address] [place] [address] STATES OF [place] CBC W Auto Differential pane l (Bld)on 02-06-2022 Basophils (Bld) [#/Vol] 0.04 10*3/uL Normal <0.11 [facility] Comment on above: Order Comment: Speci men Type: BLOOD SPECIMEN [facility] Address: [address] [place] [address] Performed By: #### 4 537-7 #### [facility] CLIA [id number] [address] [place] [address] [place] Basophils/100 WBC (Bld) 0.6 % Normal [facility] Comment on above: Order Comment: Speci men Type: BLOOD SPECIMEN [facility] Address: [address] [place] [address] Performed By: #### 4 537-7 #### [facility] CLIA [id number] [address] [place] [address] [place] Differential cell count method Nom (Bld) Auto Normal [facility] Comment on above: Order Comment: Speci men Type: BLOOD SPECIMEN [facility] Address: [address] [place] [address] Performed By: #### 4 537-7 #### [facility] CLIA [id number] [address] [place] [address] [place] Eosinophils (Bld) [#/Vol] 0.17 10*3/uL Normal <0.46 [facility] Comment on above: Order Comment: Speci men Type: BLOOD SPECIMEN [facility] Address: [address] [place] [address] Performed By: #### 4 537-7 #### [facility] CLIA [id number] [address] [place] [address] [place] Eosinophils/100 WBC (Bld) 2.6 % Normal [facility] Comment on above: Order Comment: Speci men Type: BLOOD SPECIMEN [facility] Address: [address] [place] [address] Performed By: #### 4 537-7 #### [facility] CLIA [id number] [address] [place] [address] [place] Erythrocyte distribution width (RBC) [Ratio] 13.3 % Normal 11.5-15.0 [facility] Comment on above: Order Comment: Speci men Type: BLOOD SPECIMEN [facility] Address: [address] [place] [address] Performed By: #### 4 537-7 #### [facility] CLIA [id number] [address] [place] [address] [place] Hematocrit (Bld) [Volume fraction] 43.6 % Normal 36.0-46.0 [facility] Comment on above: Order Comment: Speci men Type: BLOOD SPECIMEN Order[facility] Address: [address] [place], [place] [id number] Performed By: #### 4 537-7 #### [facility] CLIA [id number] [address] [place] [address] [place] Hemoglobin (Bld) [Mass/Vol] 13.9 g/dL Normal 11.5-15.5 [facility] Comment on above: Order Comment: Speci men Type: BLOOD SPECIMEN Order[facility] Address: [address] [place], [place] [id number] Performed By: #### 4 537-7 #### [facility] CLIA [id number] [address] [place] [address] [place] IMMATURE GRAN % 0.3 % Normal [facility] Comment on above: Order Comment: Speci men Type: BLOOD SPECIMEN [facility] Address: [address] [place], [place] [id number] Performed By: #### 4 537-7 #### [facility] CLIA [id number] [address] [place] [address] [place] IMMATURE GRAN ABS <0.03 Normal <0.10 [facility] Comment on above: Order Comment: Speci men Type: BLOOD SPECIMEN [facility] Address: [address] [place], [place] [id number] Performed By: #### 4 537-7 #### [facility] CLIA [id number] [address] [place] [address] [place] Lymphocytes (Bld) [#/Vol] 1.79 10*3/uL Normal 1.00-4.00 [facility] Comment on above: Order Comment: Speci men Type: BLOOD SPECIMEN Order[facility] Address: [address] [place], [place] [id number] Performed By: #### 4 537-7 #### [facility] CLIA [id number] [address] [place] [address] STATES [place] Lymphocytes/100 WBC (Bld) 26.9 % Normal [facility] Comment on above: Order Comment: Speci men Type: BLOOD SPECIMEN Order[facility] Address: [address] [place], [place] [id number] Performed By: #### 4 537-7 #### [facility] CLIA [id number] [address] [place] [address] [place] MCH (RBC) [Entitic mass] 30.5 pg Normal 26.0-34.0 [facility] Comment on above: Order Comment: Speci men Type: BLOOD SPECIMEN Order[facility] Address: [address] [place], [place] [id number] Performed By: #### 4 537-7 #### [facility] CLIA [id number] [address] [place] [address] [place] MCHC (RBC) [Mass/Vol] 31.9 g/dL Normal 30.5-36.0 [facility] Comment on above: Order Comment: Speci men Type: BLOOD SPECIMEN [facility] Address: [address] [place], [place] [id number] Performed By: #### 4 537-7 #### [facility] CLIA [id number] [address] [place] [address] [place] MCV (RBC) [Entitic vol] 95.6 fL Normal 80.0-100.0 [facility] Comment on above: Order Comment: Speci men Type: BLOOD SPECIMEN Order[facility] Address: [address] [place], [place] [id number] Performed By: #### 4 537-7 #### [facility] CLIA [id number] [address] [place] [address] [place] Monocytes (Bld) [#/Vol] 0.54 10*3/uL Normal <0.87 [facility] Comment on above: Order Comment: Speci men Type: BLOOD SPECIMEN Order[facility] Address: [address] [place], [place] [id number] Performed By: #### 4 537-7 #### [facility] CLIA [id number] [address] [place] [address] [place] Monocytes/100 WBC (Bld) 8.1 % Normal [facility] Comment on above: Order Comment: Speci men Type: BLOOD SPECIMEN [facility] Address: [address] [place], [place] [id number] Performed By: #### 4 537-7 #### [facility] CLIA [id number] [address] [place] [address] [place] Neutrophils (Bld) [#/Vol] 4.09 10*3/uL Normal 1.45-7.50 [facility] Comment on above: Order Comment: Speci men Type: BLOOD SPECIMEN [facility] Address: [address] [place], [place] [id number] Performed By: #### 4 537-7 #### [facility] CLIA [id number] [address] [place] [address] [place] Neutrophils/100 WBC (Bld) 61.5 % Normal [facility] Comment on above: Order Comment: Speci men Type: BLOOD SPECIMEN [facility] Address: [address] [place], [place] [id number] Performed By: #### 4 537-7 #### [facility] CLIA [id number] [address] [place] [address] [place] Nucleated RBC (Bld) [#/Vol] 10*3/uL Normal <0.01 [facility] Comment on above: Order Comment: Speci men Type: BLOOD SPECIMEN [facility] Address: [address] [place], [place] [id number] Performed By: #### 4 537-7 #### [facility] CLIA [id number] [address] [place] [address] [place] Nucleated RBC/100 WBC (Bld) [Ratio] 0.0 /100 WBC Normal [facility] Comment on above: Order Comment: Speci men Type: BLOOD SPECIMEN [facility] Address: [address] [place] [address] Performed By: #### 4 537-7 #### [facility] CLIA [id number] [address] [place] [address] [place] Platelet mean volume (Bld) [Entitic vol] 11.0 fL Normal 9.0-12.7 [facility] Comment on above: Order Comment: Speci men Type: BLOOD SPECIMEN Order[facility] Address: [address] [place] [address] Performed By: #### 4 537-7 #### [facility] CLIA [id number] [address] [place] [address] [place] Platelets (Bld) [#/Vol] 238 10*3/uL Normal 150-400 [facility] Comment on above: Order Comment: Speci men Type: BLOOD SPECIMEN [facility] Address: [address] [place], [place] [id number] Performed By: #### 4 537-7 #### [facility] CLIA [id number] [address] [place] [address] RBC (Bld) [#/Vol] 4.56 10*6/uL Normal 3.90-5.20 [facility] Comment on above: Order Comment: Speci men Type: BLOOD SPECIMEN [facility] Address: [address] [place] [address] Performed By: #### 4 537-7 #### [facility] CLIA [id number] [address] [place] [address] OF [facility] WBC (Bld) [#/Vol] 6.65 10*3/uL Normal 3.70-11.00 [facility] Comment on above: Order Comment: Speci men Type: BLOOD SPECIMEN [facility] Address: [address] [place], [place] [id number] Performed By: #### 4 537-7 #### [facility] CLIA [id number] [address] [place] [address] OF JUAN CNOVon 02-06-2022 CNOV Office Visit (FALGUNI ) ----- MARGARITA CUBA ([id number]) 1955 F Date Time Provider Department 02/06/22 1:00 PM CARMEN GRANDE During your visit today, we recorded the following information about you: Pulse Blood pressure Weight 66/minute 128/78 81.2 kg Carmen Grande MD 02/13/2022 12:54 PM Addendum [facility] Date of Service: 02/06/2022 Patient: Margarita Cuba Medical Record: [id number] Primary Care Physician: No primary care provider on file. Referring Provider: SELF Last Rheumatology visit: 02/06/2022 (with Carmen Grande) Chief complaint: New Patient and Arthritis Self referral requested for an opinion regarding multiple joint pain. My final recommendations will be communicated back to the requesting physician by way of shared Medical record or letter to requesting physician via US mail. History of Present Illness Margarita Cuba is a 66 year old female with medical history of Celiac disease, mononucleosis at 17 yrs presents on 02/06/2022 for an in-person visit for evaluation of New Patient and Arthritis. Her most recent MINOR was positive (02/06/2022). HISTORY OF PRESENT ILLNESS Patient reports pain over hands (DIPs, PIPs), wrists, collar bone and feet, for about 5 years Pain is stable She had left rotator cuff repair over left Shoulder and still has pain over left shoulder which is worse with lying on that side. Other joint pain is worse after activities. Has noted joint swelling only over right index DIP, denies any other joint swelling. Has morning stiffness for 30 min Medications tried for pain - tylenol, NSAIDs doesn't help Reports intermittent worsening of her joint pain when she has widespread pain, those episodes occur after inadvertent exposure to gluten and symptoms resolves after avoiding gluten. She reports being seen by deck steward many yrs ago and was diagnosed Sjogren and fibromyalgia, was not given any medications so she did not follow up. She also reports dry eyes and reports that her Esme test was <2 mm. Denies history of inflammatory eye disease, psoriasis, history of kidney disease/biopsy, nephrolithiasis, peptic ulcer disease, tuberculosis, 2 miscarriages at week 12 and 16, blood clots, Denies malignancy, pleural/pericardial effusion, CHF, CAD, CVA. Patient-Entered Data PAIN EVALUATION No data found in the last 1 encounters. PROMIS Assessments PROMIS Assessments 02/13/2022 Mental Health Percentile 63 % Pain Interference Percentile 62 % Fatigue Percentile 69 % Physical Function Percentile 42 % RAPID 3 James Activities of Daily Living 02/13/2022 9:42 AM Dress self? Without ANY difficulty Get in and out of bed? Without ANY difficulty Walk outdoors? Without ANY difficulty Wash and dry body? Without ANY difficulty Get in and out of car? Without ANY difficulty RAPID 3 Disease Activity Weighed Score Levels: 0 - 1: Near Remission 1.3 - 2.0: Low Severity 2.3 - 4.0: Moderate Severity 4.3 - 10.0: High Severity RAPID-3 Weighed Score 02/13/2022 RAPID 3 Weighed Score 0.33 (Near Remission (NR)) Review of Systems REVIEW OF SYSTEMS: Joint pain: As above Joint swelling: As above Joint stiffness: 30 min Back/neck pain: Denies Enthesopathic pain: Denies Fever: Denies Change in weight: Denies Lymphadenopathy: Denies Mucosal ulcers: Denies Skin rash: Denies Photosensitive rash: yes Alopecia: Denies Chest Pain: Denies Dyspnea: Denies Cough : Chronic allergic dry cough Difficulty swallowing: Denies Nausea/vomiting: Denies Heartburn: Denies Abdominal Pain: Denies Diarrhea/constipation :Denies Blood in stool : Denies Dysuria/hematuria: Denies Muscle pain: Denies Muscle weakness: Denies Numbness: Sometimes over fingers Headache: yes change in vision: Denies Confusion: Denies Seizures: Denies Raynaud's: Denies Sicca: Yes, dry eyes and mouth, relates to bendryl Past Medical History As in HPI Past Surgical History Left knee cyst removal? Allergy ALLERGIES Allergen Reactions Gluten Intolerance Penicillins Unknown Sulfa (Sulfonamide * Unknown Sulfa. Family History Son and grandkids has celiac disease The patient denies family history of SLE, RA, Sarcoidosis, Scleroderma, IBD or Psoriasis. Social History Deneis smoking and drinking alcohol Current Medications Current Outpatient Medications on File Prior to Visit Medication Sig azithromycin (ZITHROMAX) 250 mg tablet TAKE 2 TABLETS BY MOUTH ON DAY 1, THEN TAKE 1 TABLET BY MOUTH DAILY DAYS 2 THRU 5 diphenhydrAMINE HCl (BENADRYL) 2 % gel Take 25 mg by mouth. lansoprazole (PREVACID) 30 mg capsule Take 30 mg by mouth once daily. fexofenadine HCl (MARY ORAL) Take by mouth. Takes vitamin D, zinc OTC No current facility-administered medications on file prior to visit. Labs CBC Latest Ref Rng AND Units 02/06/2022 (more content not included)... Normal [facility] CRP SerPl-mCncon 02-06-2022 CRP [Mass/Vol] 0.7 mg/dL Normal <0.9 [facility] Comment on above: Order Comment: Specjackelin munoz Type: BLOOD SPECIMEN [facility] Address: [address] [place] [address] Performed By: #### 1 988-5, 3016-3, 39021-0 #### [facility] CLIA [id number] [address] [place] [address] OF [facility] Centromere Ab IF Ql (S)on Centromere Ab Qn (S) <0.2 Normal <1.0 [facility] Comment on above: Order Comment: Kathleen munoz Type: BLOOD SPECIMEN [facility]ing [facility] Address: [address] [place] [address] Result Comment: Anti -centromere antibody is used as in aid in diagnosis of systemic sclerosis. Clinical correlation is required. Test Methodology: Multiplex flow immunoassay. Performed By: #### 2 9374-6, 00124-4, 10811-3, 23377-7, 33759-7, 91187-8, 15809-9, 75372-9 #### [facility] CLIA [id number] [address] [place] [address] [place] Performed By: #### 4 537-7 #### [facility] CLIA [id number] [address] [place] [address] [place] CENTROMERE AB QUAL Negative Normal Negative [facility] Comment on above: Order Comment: Kathleen munoz Type: BLOOD SPECIMEN [facility] Address: [address] [place] [address] Performed By: #### 2 9374-6, 68362-7, 24120-1, 14794-0, 71594-6, 07889-3, 04300-8, 57915-2 #### [facility] CLIA [id number] [address] [place] [address] Performed By: #### 4 537-7 #### [facility] CLIA [id number] [address] [place] [address] Chromatin Ab Qnon 02-06-2022 CHROMATIN AB QUAL Negative Normal Negative [facility] Comment on above: Order Comment: Speci men Type: BLOOD SPECIMEN [facility] Address: [address] [place] [address] Performed By: #### 2 9374-6, 24363-2, 15632-5, 86389-0, 17611-4, 38958-8, 83912-7, 83342-0 #### [facility] CLIA [id number] [address] [place] [address] Performed By: #### 4 537-7 #### [facility] CLIA [id number] [address] [place] [address] OF [place] Chromatin Ab SerPl-aCncon Chromatin Ab Qn <0.2 Normal <1.0 [facility] Comment on above: Order Comment: Speci men Type: BLOOD SPECIMEN Ordering [facility] Address: [address] [place], [place] [id number] Result Comment: Test Methodology: Multiplex flow immunoassay. Performed By: #### 2 9374-6, 56208-3, 04134-6, 00520-0, 69493-7, 70006-2, 02330-3, 28928-9 #### [facility] CLIA [id number] [address] [place] [address] Performed By: #### 4 537-7 #### [facility] CLIA [id number] [address] [place] [address] [place] [facility] Comprehensive metabolic 2000 panelon 02-06-2022 Albumin [Mass/Vol] 4.6 g/dL Normal 3.9-4.9 [facility] Comment on above: Order Comment: Speci men Type: BLOOD SPECIMEN Ordering [facility] Address: [address] [place], [place] [address] Performed By: #### 1 988-5, 301-3, 83083-1 #### [facility] CLIA [id number] [address] [place] [address] [place] ALP [Catalytic activity/Vol] 96 U/L Normal 34-123 [facility] Comment on above: Order Comment: Speci men Type: BLOOD SPECIMEN Ordering [facility] Address: [address] [place], [place] [address] Performed By: #### 1 988-5, 3015-3, 95351-0 #### [facility] CLIA [id number] [address] [place] [address] [place] ALT [Catalytic activity/Vol] 40 U/L High 7-38 [facility] Comment on above: Order Comment: Speci men Type: BLOOD SPECIMEN Ordering [facility] Address: [address] [place], [place] [address] Performed By: #### 1 988-5, 3016-3, 95810-6 #### [facility] CLIA [id number] [address] [place] [address] [place] Anion gap [Moles/Vol] 10 mmol/L Normal 9-18 [facility] Comment on above: Order Comment: Speci men Type: BLOOD SPECIMEN Ordering [facility] Address: [address] [place], [place] [address] Performed By: #### 1 988-5, 3016-3, 75567-8 #### [facility] CLIA [id number] [address] [place] [address] [place] AST [Catalytic activity/Vol] 30 U/L Normal 13-35 [facility] Comment on above: Order Comment: Speci men Type: BLOOD SPECIMEN Ordering [facility] Address: [address] [place] [address] Performed By: #### 1 988-5, 3015-3, 02337-2 #### [facility] CLIA [id number] [address] [place] [address] [place] Bilirubin [Mass/Vol] 0.3 mg/dL Normal 0.2-1.3 [facility] Comment on above: Order Comment: Speci men Type: BLOOD SPECIMEN Ordering [facility] Address: [address] [place] [address] Performed By: #### 1 988-5, 3015-3, #### [facility] CLIA [id number] [address] [place] [address] [place] Calcium [Mass/Vol] 9.8 mg/dL Normal 8.5-10.2 [facility] Comment on above: Order Comment: Speci men Type: BLOOD SPECIMEN Ordering [facility] Address: [address] [place], [place] [address] Performed By: #### 1 988-5, 3015-3, #### [facility] CLIA [id number] [address] [place], [place] [address] [place] Chloride [Moles/Vol] 106 mmol/L High 97-105 [facility] Comment on above: Order Comment: Speci men Type: BLOOD SPECIMEN Ordering [facility] Address: [address] [place] [address] Performed By: #### 1 988-5, 3015-3, 51434-6 #### [facility] CLIA [id number] [address] [place] [address] [place] CO2 [Moles/Vol] 25 mmol/L Normal 22-30 [facility] Comment on above: Order Comment: Speci men Type: BLOOD SPECIMEN Ordering [facility] Address: [address] [place] [address] Performed By: #### 1 988-5, 6-3, 49258-8 #### [facility] CLIA [id number] [address] [place] [address] [place] Creatinine [Mass/Vol] 0.83 mg/dL Normal 0.58-0.96 [facility] Comment on above: Order Comment: Speci men Type: BLOOD SPECIMEN Order[facility] Address: [address] [place] [address] Performed By: #### 1 988-5, 3015-3, #### [facility] CLIA [id number] [address] [place] [address] [place] ESTIMATED GLOMERULAR FILTRATION RATE 78 mL/min/1.73m??? Normal >=60 [facility] Comment on above: Order Comment: Speci men Type: BLOOD SPECIMEN Ordering [facility] Address: [address] [place] [address] Result Comment: Arlene mated Glomerular Filtration Rate (eGFR) is calculated using the 2020 CKD-EPI creatinine equation. This equation utilizes serum creatinine, sex, and age as parameters. The creatinine assay has traceable calibration to isotope dilution-mass spectrometry. Refer to KDIGO guidelines for clinical interpretation. In patients with unstable renal function, e.g. those with acute kidney injury, the eGFR may not accurately reflect actual GFR. Performed By: #### 1 988-5, 3015-3, 19426-6 #### [facility] CLIA [id number] [address] [place] [address] [place] Glucose [Mass/Vol] 90 mg/dL Normal 74-99 [facility] Comment on above: Order Comment: Kathleen munoz Type: BLOOD SPECIMEN Ordering [facility] Address: [address] [place] [address] Result Comment: The [place] Diabetes Association (ADA) provides guidance for cutoff values for fasting glucose and random glucose. The ADA defines fasting as no caloric intake for at least 8 hours. Fasting plasma glucose results between 100 to 125 mg/dL indicate increased risk for diabetes (prediabetes). Fasting plasma glucose results greater than or equal to 126 mg/dL meet the criteria for diagnosis of diabetes. In the absence of unequivocal hyperglycemia, results should be confirmed by repeat testing. In a patient with classic symptoms of hyperglycemia or hyperglycemic crisis, random plasma glucose results greater than or equal to 200 mg/dL meet the criteria for diagnosis of diabetes. Reference: Standards of Medical Care in Diabetes 2016, [place] Diabetes Association. Diabetes Care. 2016.39(Suppl 1). Performed By: #### 1 988-5, 3016-3, 66947-9 #### [facility] CLIA [id number] [address] [place] [address] [place] Potassium [Moles/Vol] 4.1 mmol/L Normal 3.7-5.1 [facility] Comment on above: Order Comment: Kathleen munoz Type: BLOOD SPECIMEN Ordering [facility] Address: [address] [place] [address] Performed By: #### 1 988-5, 3016-3, 99471-3 #### [facility] CLIA [id number] [address] [place] [address] [place] Protein [Mass/Vol] 7.5 g/dL Normal 6.3-8.0 [facility] Comment on above: Order Comment: Kathleen munoz Type: BLOOD SPECIMEN Ordering [facility] Address: [address] [place] [address] Performed By: #### 1 988-5, 3016-3, 11187-7 #### [facility] CLIA [id number] [address] [place] [address] [place] Sodium [Moles/Vol] 141 mmol/L Normal 136-144 [facility] Comment on above: Order Comment: Speci men Type: BLOOD SPECIMEN Ordering [facility] Address: [address] [place] [address] Performed By: #### 1 988-5, 3016-3, 57627-0 #### [facility] CLIA [id number] [address] [place] [address] STATES [facility] Urea nitrogen [Mass/Vol] 19 mg/dL Normal 7-21 [facility] Comment on above: Order Comment: Speci men Type: BLOOD SPECIMEN Ordering [facility] Address: [address] [place] [address] Performed By: #### 1 988-5, 3016-3, 55090-7 #### [facility] CLIA [id number] [address] [place] [address] PAPO Jo1 Ab Ser-aCncon 2021 Guerita-1 extractable nuclear Ab Qn (S) <0.2 Normal <1.0 [facility] Comment on above: Order Comment: Speci men Type: BLOOD SPECIMEN Ordering [facility] Address: [address] [place] [address] Performed By: #### 4 537-7 #### [facility] CLIA [id number] [address] [place] [address] OF [facility] Performed By: #### 1 988-5, 3016-3, 27065-5 #### [facility] CLIA [id number] [address] [place] [address] OF [facility] PAPO SYNTHETIC SOIL BLOCKS PULPER Ab Ser-aCncon 2021 Ribonucleoprotein extractable nuclear Ab Qn (S) <0.2 Normal <1.0 [facility] Comment on above: Order Comment: Speci men Type: BLOOD SPECIMEN Ordering [facility] Address: [address] [place] [address] Performed By: #### 2 9374-6, 14745-1, 76982-3, 74575-0, 87610-8, 99886-9, 52835-7, 49925-4 #### [facility] CLIA [id number] [address] [place] [address] Performed By: #### 4 537-7 #### [facility] CLIA [id number] [address] [place] [address] Performed By: #### 1 988-5, 3016-3, 63758-0 #### [facility] CLIA [id number] [address] [place] [address] [place] PAPO SM IgG Ser-aCncon 2021 Cartwright extractable nuclear IgG Qn (S) <0.2 Normal <1.0 [facility] Comment on above: Order Comment: Speci men Type: BLOOD SPECIMEN Ordering [facility] Address: [address] [place] [address] Performed By: #### 2 9374-6, 62916-5, 53974-6, 60108-1, 97850-4, 57670-8, 30775-5, 41669-0 #### [facility] CLIA [id number] [address] [place] [address] [place] Performed By: #### 1 988-5, 3016-3, 66510-4 #### [facility] CLIA [id number] [address] [place] [address] [place] PAPO SS-A Ab Ser-aCncon 02-06 Sjogrens syndrome-A extractable nuclear Ab Qn (S) <0.2 Normal <1.0 [facility] Comment on above: Order Comment: Speci men Type: BLOOD SPECIMEN Ordering [facility] Address: [address] [place] [address] Result Comment: Test Methodology: Multiplex flow immunoassay. Performed By: #### 4 537-7 #### [facility] CLIA [id number] [address] [place] [address] [place] Performed By: #### 1 988-5, 3016-3, 10400-2 #### [facility] CLIA [id number] [address] [place] [address] [place] PAPO SS-B Ab Ser-aCncon 02-06 Sjogrens syndrome-B extractable nuclear Ab Qn (S) 0.2 AI Normal <1.0 [facility] Comment on above: Order Comment: Speci men Type: BLOOD SPECIMEN Order[facility] Address: [address] [place] [address] Result Comment: Anti -SSB (anti-La) antibody is used as an aid in diagnosis of a variety of systemic autoimmune diseases, especially for Sjogren's syndrome and systemic lupus erythematosus. Clinical correlation is required. Test Methodology: Multiplex flow immunoassay. Performed By: #### 2 9374-6, 66703-0, 86947-0, 26908-3, 88139-6, 91747-6, 76197-7, 92649-8 #### [facility] CLIA [id number] [address] [place] [address] [place] Performed By: #### 4 537-7 #### [facility] CLIA [id number] [address] [place] [address] [place] ESR Westergren method (Bld) [Velocity]on 02-06-2022 ESR (Bld) [Velocity] 17 mm/h Normal 0-20 [facility] Comment on above: Order Comment: Speci men Type: BLOOD SPECIMEN [facility] Address: [address] [place] [address] Performed By: #### 4 537-7 #### [facility] CLIA [id number] [address] [place] [address] [place] Guerita-1 extractable nuclear Ab Qn (S)on 02-06-2022 GUERITA 1 ANTIBODY QUAL Negative Normal Negative [facility] Comment on above: Order Comment: Speci alexander Type: BLOOD SPECIMEN Order[facility] Address: [address] [place] [address] Result Comment: Anti -GUERITA-1 antibody is used as an aid in diagnosis of polymyositis and dermatomyositis especially with pulmonary involvement. A negative result cannot rule out polymyositis or dermatomyositis. Clinical correlation is required. Test Methodology: Multiplex flow immunoassay. Performed By: #### 4 537-7 #### [facility] CLIA [id number] [address] [place] [address] [place] Performed By: #### 1 988-5, 3016-3, 54725-3 #### [facility] CLIA [id number] [address] [place] [address] [place] No Panel Informationon 02-06 [facility] Ribonucleoprotein extractabl e nuclear Ab Qn (S)on 02-06-2022 ANTI-SYNTHETIC SOIL BLOCKS PULPER QUAL Negative Normal Negative [facility] Comment on above: Order Comment: Kathleen munoz Type: BLOOD SPECIMEN [facility] Address: [address] [place] [address] Performed By: #### 4 537-7 #### [facility] CLIA [id number] [address] [place] [address] [place] Performed By: #### 1 988-5, 3016-3, 92054-8 #### [facility] CLIA [id number] [address] [place] [address] [place] RIBOSOMAL SYNTHETIC SOIL BLOCKS PULPER QUAL Negative Normal Negative [facility] Comment on above: Order Comment: Speci men Type: BLOOD SPECIMEN [facility] Address: [address] [place] [address] Result Comment: Anti -Ribosomal RNA (Ribosomal P) antibody is used as an aid in diagnosis of systemic autoimmune diseases especially systemic lupus erythematosus and mixed connective tissue disease. Cross-reactivity with Anti-cartwright antibody is not uncommon. Clinical correlation is required. Test Methodology: Multiplex flow immunoassay. Performed By: #### 2 9374-6, 71004-3, 98523-7, 61290-3, 98120-0, 79098-0, 87358-8, 02532-5 #### [facility] CLIA [id number] [address] [place] [address] Performed By: #### 4 537-7 #### [facility] CLIA [id number] [address] [place] [address] [place] SCL-70 extractable nuclear I gG IA Qn (S)on 02-06-2022 SCLERODERMA AB QUAL Negative Normal Negative [facility] Comment on above: Order Comment: Speci alexander Type: BLOOD SPECIMEN [facility] Address: [address] [place] [address] Performed By: #### 4 537-7 #### [facility] CLIA [id number] [address] [place] [address] [place] Performed By: #### 1 988-5, 3016-3, 94059-2 #### [facility] CLIA [id number] [address] [place] [address] [place] SCLERODERMA IGG AB <0.2 Normal <1.0 [facility] Comment on above: Order Comment: Kathleen munoz Type: BLOOD SPECIMEN [facility] Address: [address] [place] [address] Result Comment: Scl- 70/Scleroderma antibody test is used as an aid in diagnosis of systemic sclerosis especially the diffuse cutaneous form. A negative result cannot rule out systemic sclerosis. The final interpretation should consider clinical picture and other test results such as anti-centromere antibody. Test Methodology: Multiplex flow immunoassay. Performed By: #### 4 537-7 #### [facility] CLIA [id number] [address] [place] [address] Performed By: #### 1 988-5, 3016-3, 76444-5 #### [facility] CLIA [id number] [address] [place] [address] [place] Sjogrens syndrome-A extracta ble nuclear Ab Qn (S)on 02-06-2022 SSA ANTIBODY QUAL Negative Normal Negative [facility] Comment on above: Order Comment: Speci men Type: BLOOD SPECIMEN [facility] Address: [address] [place] [address] Performed By: #### 4 537-7 #### [facility] CLIA [id number] [address] [place] [address] Performed By: #### 1 988-5, 3016-3, 64736-2 #### [facility] CLIA [id number] [address] [place] [address] [place] Sjogrens syndrome-B extracta ble nuclear Ab Qn (S)on 02-06-2022 SSB ANTIBODY QUAL Negative Normal Negative [facility] Comment on above: Order Comment: Speci men Type: BLOOD SPECIMEN [facility] Address: [address] [place] [address] Performed By: #### 2 9374-6, 87080-1, 76366-9, 44853-0, 79648-9, 98983-5, 68682-1, 81596-5 #### [facility] CLIA [id number] [address] [place] [address] Performed By: #### 4 537-7 #### [facility] CLIA [id number] [address] [place] [address] Cartwright extractable nuclear Ig G Qn (S)on 02-06-2022 SM ANTIBODY QUAL Negative Normal Negative [facility] Comment on above: Order Comment: Kathleen munoz Type: BLOOD SPECIMEN [facility] Address: [address] [place], [place] [address] Result Comment: Anti -Sm (Cartwright) antibody is used as an aid in diagnosis of systemic lupus erythematosus and its presence is associated with renal disease. A negative result cannot rule out systemic lupus erythematosus. Clinical correlation is required. Test Methodology: Multiplex flow immunoassay. Performed By: #### 2 9374-6, 34307-3, 94805-8, 00929-7, 85297-0, 50042-8, 12579-9, 94848-4 #### [facility] CLIA [id number] [address] [place] [address] [place] Performed By: #### 1 988-5, 3016-3, 57001-2 #### [facility] CLIA [id number] [address] [place] [address] [place] TSH SerPl-aCncon 02-06-2022 TSH Qn 1.700 m[IU]/L Normal 0.270-4.20 0 [facility] Comment on above: Order Comment: Ceciliai alexander Type: BLOOD SPECIMEN [facility] Address: [address] [place], [place] [address] Performed By: #### 1 988-5, 3016-3, 71374-1 #### [facility] CLIA [id number] [address] [place] [address] [place] XR FOOT 3V AP/LAT/OBL BILon 02-06-2022 XR FOOT 3V AP/LAT/OBL TAINA * * *Final Report* * * DATE OF EXAM: Feb 06 2022 2:46PM LNX [id number] - XR FOOT 3V AP/LAT/OBL TAINA / PROCEDURE REASON: Pain in joint involving multiple sites * * * * Physician Interpretation * * * * XR FOOT 3V AP/LAT/OBL TAINA INDICATION: Pain in joint involving multiple sites COMPARISON: No available comparisons. TECHNIQUE: XR FOOT 3V AP/LAT/OBL TAINA RESULT: No findings of inflammatory arthropathy. No acute fracture or dislocation. Joint spaces are maintained. IMPRESSION: No findings of inflammatory arthropathy. Computer Installation Engineer: DANIEL Transcribe Date/Time: Feb 08 2022 1:48P Dictated by : PHILIP SILVERMAN MD This examination was interpreted and the report reviewed and electronically signed by: PHILIP SILVERMAN MD on Feb 08 2022 1:50PM EST [id number] Normal [facility] XR HAND 3V PA/LAT/OBL BILon 02-06-2022 XR HAND 3V PA/LAT/OBL TAINA * * *Final Report* * * DATE OF EXAM: Feb 06 2022 2:46PM LNX [id number] - XR HAND 3V PA/LAT/OBL TAINA / PROCEDURE REASON: Pain in joint involving multiple sites * * * * Physician Interpretation * * * * XR HAND 3V PA/LAT/OBL TAINA INDICATION: Pain in joint involving multiple sites COMPARISON: No available comparisons. TECHNIQUE: XR HAND 3V PA/LAT/OBL TAINA RESULT: No findings of inflammatory arthropathy. No acute fracture or dislocation. Joint spaces are maintained. IMPRESSION: No findings of inflammatory arthropathy. Computer Installation Engineer: [facility] Transcribe Date/Time: Feb 08 2022 1:47P Dictated by : PHILIP SILVERMAN MD This examination was interpreted and the report reviewed and electronically signed by: PHILIP SILVERMAN MD on Feb 08 2022 1:48PM EST [id number] Normal [facility] dsDNA Ab Ser IA-aCncon 02-06 DNA double strand Ab IA Qn (S) <12 Normal <30 [facility] Comment on above: Order Comment: Speci men Type: BLOOD SPECIMEN Ordering Facility: [facility] Address: [address] [place] [id number] Result Comment: Nega tive for ds DNA Antibodies. <30 IU/mL Negative 30-74 IU/mL Equivocal >74 IU/mL Positive Performed By: #### 1 [id number], [id number], [id number] #### [facility] CLIA [id number] [address] [facility] [address] [place] [id number] [place] SCREENING MAMMOGRAM W/FRANK, BILATERAL*on 01-25-2022 SCREENING MAMMOGRAM W/FRANK, BILATERAL* CLINICAL HISTORY: Screening Mammogram COMPARISON: 02/24/2020, 12/11/2016, and 02/07/2015. TECHNIQUE: 2D and 3D Tomosynthesis of the right and left breasts was performed. FINDINGS: There are scattered fibroglandular densities within each breast, with stable asymmetry. There are no suspicious masses, areas of suspicious microcalcifications or areas of architectural distortion identified. No evidence of skin thickening. IMPRESSION: BIRADS 1 : NEGATIVE, NORMAL INTERVAL FOLLOW UP. Board certified radiologist. Accredited by the ACR and FDA. MAMMOGRAPHY IS VERY IMPORTANT TO YOUR HEALTH. CURRENT [employer] GUIDELINES RECOMMENDS ANNUAL MAMMOGRAPHY BEGINNING AT AGE 41. THIS FACILITY USUALLY USES A REMINDER SYSTEM TO ENSURE ALL POSITIONS RECEIVED REMINDER NOTIFICATIONS AT THE TIME BASED ON THE RECOMMENDATIONS OF THIS EXAM. Report reported and signed by Demetrio Robertson on 01/26/2022 1241 Normal [facility] Specialist Quick Fluon 07-08-2021 FLUAV Ab CF (S) [Titer] Negative [facility] Other FLUBV Ab CF (S) [Titer] Negative [facility] Other Quick Strepon 07-08-2021 S. pyogenes Org specific cx Ql (Throat) Negative [facility] Other Quick Strep [facility] Other Dermatopathologyon 0 Dermatopathology [facility] Dermatopathology Laboratory [address] [address] DERMATOPATHOLOGY REPORT Name:MARGARITA CUBA Vance Estrella. Rec #. [id number] Location: [facility] Date of Procedure: 03/14/2020 Race: Date Received: 03/16/2020 /Sex: 1955 (Age: 64) / F Date Reported: 03/18/2020 Other: Submitting Physician:WILLIAM LYNN MD FINAL DIAGNOSIS SKIN, L 3RD TOE, BIOPSY: ABUNDANT KERATIN, SEE NOTE. Note: Microscopic examination reveals abundant keratin. Multiple step sections were performed. No keratinocytes are seen. These findings are not specific. A deeper biopsy is recommended. Electronically Signed Out by MANJIT ARANDA M.D. Electronically Signed Out By MANJIT ARANDA MD/[facility] By the signature on this report, the individual or group listed as making the Final Interpretation/Diagnosis certifies that they have reviewed this case. Clinical History: 0.3 x 0.3 cm. VV vs. other. Biopsy. Specimens Submitted As: A: SKIN, L 3RD TOE Gross Description: Received in formalin is a veronica piece of skin measuring 4 x 2 x 2 mm. Inked and embedded in toto. [facility]/03/16/2020 Normal [facility] Comment on above: Performed By: #### D #### Dermatopathology Vital Signs Date Time Vital Sign Value Performing Clinician Faci lity 01-15-2025 07:43-0400 Body height 167.64 cm Brian Espinosa MD Work Phone: [facility] 01-15-2025 07:43-0400 Body mass index (BMI) [Ratio] 28 kg/m2 Brian Espinosa MD Work Phone: [facility] 01-15-2025 07:43-0400 Body weight 78.98 kg Brian Espinosa MD Work Phone: [facility] 01-15-2025 07:43-0400 Diastolic blood pressure 81 mm[Hg] Brian Espinosa MD Work Phone: [facility] 01-15-2025 07:43-0400 Heart rate 76 /min Brian Espinosa MD Work Phone: [facility] 01-15-2025 07:43-0400 Respiratory rate 12 /min Brian Espinosa MD Work Phone: [facility] 01-15-2025 07:43-0400 SaO2% (BldA) [Mass fraction] 97 % Brian Espinosa MD Work Phone: [facility] 01-15-2025 07:43-0400 Systolic blood pressure 123 mm[Hg] Brian Espinosa MD Work Phone: [facility] 11-11-2024 10:22-0400 Body height 167.64 cm Brian Espinosa MD Work Phone: [facility] 11-11-2024 10:22-0400 Body mass index (BMI) [Ratio] 27.6 kg/m2 Brian Espinosa MD Work Phone: [facility] 11-11-2024 10:22-0400 Body weight 77.56 kg Brian Espinosa MD Work Phone: [facility] 11-11-2024 10:22-0400 Diastolic blood pressure 74 mm[Hg] Brian Espinosa MD Work Phone: [facility] 11-11-2024 10:22-0400 Heart rate 80 /min Brian Espinosa MD Work Phone: [facility] 11-11-2024 10:22-0400 Systolic blood pressure 114 mm[Hg] Brian Espinosa MD Work Phone: [facility] 03-26-2024 09:47-0500 Body mass index (BMI) [Ratio] 27.44 kg/m2 Jennifer Nataprawira DO Work Phone: [facility] 03-26-2024 09:47-0500 Body weight 77.11 kg Jennifer Nataprawira DO Work Phone: [facility] 03-26-2024 09:47-0500 Diastolic blood pressure 66 mm[Hg] Jennifer Nataprawira DO Work Phone: [facility] 03-26-2024 09:47-0500 Systolic blood pressure 118 mm[Hg] Jennifer Nataprawira DO Work Phone: [facility] 11-20-2023 12:57-0400 Body height 167.64 cm MD Brian Espinosa Work Phone: [facility] 11-20-2023 12:57-0400 Body mass index (BMI) [Ratio] 28.8 kg/m2 MD Brian Espinosa Work Phone: [facility] 11-20-2023 12:57-0400 Body weight 81 kg MD Brian Espinosa Work Phone: [facility] 09-04-2023 13:05-0400 Body height 167.64 cm [facility] 09-04-2023 13:05-0400 Body mass index (BMI) [Ratio] 28.8 kg/m2 [facility] 09-04-2023 13:05-0400 Body weight 81 kg [facility] 04-30-2023 09:15-0500 Body height 167.64 cm Brian Espinosa Other [facility] Other 04-30-2023 09:15-0500 Body mass index (BMI) [Ratio] 28.63 kg/m2 Brian Espinosa Other [facility] Other 04-30-2023 09:15-0500 Body temperature 96.3 [degF] Brian Espinosa Other [facility] Other 04-30-2023 09:15-0500 Body weight 80.47 kg Brian Espinosa Other [facility] Other 04-30-2023 09:15-0500 Diastolic blood pressure 77 mm[Hg] Brian Espinosa Other [facility] Other 04-30-2023 09:15-0500 Systolic blood pressure 119 mm[Hg] Brian Espinosa Other [facility] Other 04-19-2023 11:15-0500 Body height 167.64 cm Brian Espinosa Other [facility] Other 04-19-2023 11:15-0500 Body mass index (BMI) [Ratio] 27.6 kg/m2 Brian Espinosa Other [facility] Other 04-19-2023 11:15-0500 Body weight 77.57 kg Brian Espinosa Other [facility] Other 04-19-2023 11:15-0500 Diastolic blood pressure 81 mm[Hg] Brian Espinosa Other [facility] Other 04-19-2023 11:15-0500 Systolic blood pressure 135 mm[Hg] Brian Espinosa Other [facility] Other 11-14-2022 10:00-0400 Body height 167.64 cm Brian Espinosa Other [facility] Other 11-14-2022 10:00-0400 Body mass index (BMI) [Ratio] 27.92 kg/m2 Brian Espinosa Other [facility] Other 11-14-2022 10:00-0400 Body weight 78.47 kg Brian Espinosa Other [facility] Other 11-14-2022 10:00-0400 Diastolic blood pressure 81 mm[Hg] Brian Espinosa Other [facility] Other 11-14-2022 10:00-0400 Systolic blood pressure 121 mm[Hg] Brian Espinosa Other [facility] Other 09-12-2022 13:09-0400 Blood Pressure Location Raghavendra PHILLIPS [facility] [place] 09-12-2022 13:09-0400 Diastolic blood pressure 86 mm[Hg] Raghavendra NILL [facility] [place] 09-12-2022 13:09-0400 Heart rate 70 /min Raghavendra NILL [facility] [place] 09-12-2022 13:09-0400 Respiratory rate 16 /min Raghavendra NILL [facility] [place] 09-12-2022 13:09-0400 Systolic blood pressure 122 mm[Hg] Raghavendra LUISL [facility] [place] 08-27-2022 10:30-0400 Body height 167.64 cm Brian Espinosa Other [facility] Other 08-27-2022 10:30-0400 Body mass index (BMI) [Ratio] 28.08 kg/m2 Brian Espinosa Other [facility] Other 08-27-2022 10:30-0400 Body weight 78.93 kg Brian Espinosa Other [facility] Other 08-27-2022 10:30-0400 Diastolic blood pressure 64 mm[Hg] Brian Espinosa Other [facility] Other 08-27-2022 10:30-0400 SaO2% (BldA) [Mass fraction] 96 % Brian Espinosa Other [facility] Other 08-27-2022 10:30-0400 Systolic blood pressure 122 mm[Hg] Brian Espinosa Other [facility] Other 02-06-2022 13:00-0400 Body weight 81.19 kg Carmen Grande MD Work Phone: [facility] 02-06-2022 13:00-0400 Diastolic blood pressure 78 mm[Hg] Carmen Grande MD Work Phone: [facility] 02-06-2022 13:00-0400 Heart rate 66 /min Carmen Grande MD Work Phone: [facility] 02-06-2022 13:00-0400 Systolic blood pressure 128 mm[Hg] Carmen Grande MD Work Phone: [facility] 12-28-2021 11:45-0400 Body height 167.64 cm Roselyn Castillo Other [facility] Other 12-28-2021 11:45-0400 Body mass index (BMI) [Ratio] 28.89 kg/m2 Roselyn Castillo Other [facility] Other 12-28-2021 11:45-0400 Body weight 81.19 kg Roselyn Castillo Other [facility] Other 07-08-2021 14:35-0500 Body height 167.64 cm Trinidad Luz Maria Other [facility] Other 07-08-2021 14:35-0500 Body mass index (BMI) [Ratio] 28.24 kg/m2 Trinidad Luz Maria Other [facility] Other 07-08-2021 14:35-0500 Body temperature 96.9 [degF] Trinidad Luz Maria Other [facility] Other 07-08-2021 14:35-0500 Body weight 79.38 kg Trinidad Luz Maria Other [facility] Other 07-08-2021 14:35-0500 Respiratory rate 18 /min Trinidad Luz Maria Other [facility] Other 07-08-2021 14:35-0500 SaO2% (BldA) [Mass fraction] 98 % Trinidad Loera Other [facility] Other Encounters Encounter Date Encounter Type Care Provider Facility Start: 01-15-2025 End: 01-15-2025 ambulatory Brian Espinosa MD Work Phone: [facility] Work Phone: Start: 01-15-2025 End: 01-15-2025 Patient encounter procedure Brian Espinosa MD -[facility] Work Phone: Start: 11-11-2024 End: 11-11-2024 ambulatory Brian Espinosa MD Work Phone: [facility] Work Phone: Start: 11-11-2024 End: 11-11-2024 Patient encounter procedure Brian Espinosa MD -[facility] Work Phone: Start: 09-15-2024 End: 09-15-2024 Bamboo flowsheet Lori Aden MD Work Phone: [facility] Start: 09-15-2024 End: 09-15-2024 Dain flowskenrick Aden MD Work Phone: [facility] Start: 09-15-2024 End: 09-15-2024 ambulatory LORI ADEN Not Available Start: 09-15-2024 End: 09-15-2024 Office outpatient visit 15 minutes Lori Aden MD Work Phone: [facility] Comment on above: Seborrheic keratosis (Primary Dx); Lentigines; Xerosis cutis; Personal history of actinic keratosis Start: 05-04-2024 End: 05-04-2024 ambulatory Brian Espinosa Facility:[facility] Start: 03-26-2024 End: 03-26-2024 Bamboo flowsheet Jennifer Donaldson DO Work Phone: [facility] Start: 03-26-2024 End: 03-26-2024 Bamboo flowsheet Jennifer Donaldson DO Work Phone: [facility] Start: 03-26-2024 End: 03-26-2024 Office outpatient visit 15 minutes Jennifer Ruiz Anika DO Work Phone: [facility] Comment on above: Cystocele, midline ( Primary Dx); Vulvar irritation; Postmenopausal; Other screening mammogram; Gastroesophageal reflux disease without esophagitis Start: 03-26-2024 End: 03-26-2024 ambulatory JENNIFER Ruiz ANIKA Not Available Start: 01-22-2024 End: 01-22-2024 ambulatory [facility] Work Phone: Start: 01-22-2024 End: 01-22-2024 Patient encounter procedure [facility] Work Phone: Start: 12-10-2023 End: 12-10-2023 ambulatory LILI AGOSTO Not Available Start: 11-20-2023 End: 11-20-2023 ambulatory MD Brian Espinosa Work Phone: [facility] Work Phone: Start: 11-20-2023 End: 11-20-2023 Patient encounter procedure MD Brian Espinosa Work Phone: [facility] Work Phone: Start: 09-19-2023 End: 09-19-2023 ambulatory Imad Asaad Facility:[facility] Start: 09-19-2023 Non-patient / Non-visit MD Lynn Espinosa Work Phone: [facility] Work Phone: Start: 09-04-2023 End: 09-04-2023 ambulatory MD Brian Espinosa Work Phone: [facility] Work Phone: Start: 09-04-2023 End: 09-04-2023 Patient encounter procedure [facility] Work Phone: Start: 04-30-2023 End: 04-30-2023 ambulatory Brian Espinosa Other [facility] Other Start: 04-30-2023 Office outpatient vi sit 15 minutes Brian Espinosa [facility] Start: 04-29-2023 End: 04-29-2023 ambulatory Brian Espinosa Other [facility] Other Start: 04-29-2023 Telephone encounter Brian Espinosa [facility] Start: 04-19-2023 End: 04-19-2023 ambulatory Brian Espinosa Other [facility] Other Start: 04-19-2023 Office outpatient vi sit 15 minutes Brian Espinosa [facility] Start: 11-15-2022 End: 11-15-2022 ambulatory Brian Espinosa Other [facility] Other Start: 11-15-2022 Telephone encounter Brian Espinosa [facility] Start: 11-14-2022 End: 11-14-2022 ambulatory Brian Espinosa Other [facility] Other Start: 11-14-2022 Office outpatient vi sit 15 minutes Brian Espinosa [facility] Start: 10-03-2022 End: 10-03-[address] RAGHAVENDRA PHILLIPS . Facility: Start: 09-12-2022 End: 09-13-2022 ambulatory Raghavendra PHILLIPS Facility: [facility] Start: 09-12-2022 End: 09-12-2022 Patient encounter procedure Raghavendra PHILLIPS [facility] Start: 09-04-2022 End: 09-04-2022 ambulatory Brian Espinosa Other [facility] Other Start: 09-04-2022 Telephone encounter Brian Espinosa [facility] Start: 09-03-2022 End: 09-04-[address] BRIAN ESPINOSA Facility:[facility] Start: 08-29-2022 ambulatory BRIAN ESPINOSA Facility:[facility] Start: 08-27-2022 End: 08-27-2022 ambulatory Brian Espinosa Other [facility] Other Start: 08-27-2022 Office outpatient vi sit 15 minutes Brian Espinosa [facility] Start: 02-13-2022 End: 02-13-2022 ambulatory BRIAN ESPINOSA Facility:[facility] Start: 02-13-2022 End: 02-13-2022 ambulatory Carmen Grande MD Work Phone: Rheumatology Comment on above: Primary osteoarthrit is of both hands (Primary Dx); Positive MINOR (antinuclear antibody); Pain in joint involving multiple sites Start: 02-13-2022 End: 02-13-2022 Telemedicine consultation with patient Carmen Grande MD Work Phone: [facility] Start: 02-06-2022 End: 02-07-2022 ambulatory BRIAN ESPINOSA Facility:[facility] Start: 02-06-2022 End: 02-06-2022 Subsequent hospital visit by physician Xr [facility] Comment on above: Pain in joint involv ing multiple sites [M25.50] Start: 02-06-2022 End: 02-06-2022 Patient encounter procedure Carmen Grande MD Work Phone: Rheumatology Comment on above: Pain in joint involv ing multiple sites (Primary Dx); Primary osteoarthritis of both hands; Dry eyes; Celiac disease ; Disorder of muscle, unspecified Start: 01-31-2022 Adult health examination Brian Espinosa Other [facility] Other Start: 12-28-2021 End: 12-28-2021 ambulatory Roselyn Castillo Other [facility] Other Start: 12-28-2021 Office outpatient vi sit 25 minutes Roselyn Castillo [facility] Start: 10-19-2021 End: 10-19-[address] BRIAN ESPINOSA Facility: Start: 07-08-2021 End: 07-08-2021 ambulatory Trinidad Loera Other [facility] Other Start: 07-08-2021 Office outpatient vi sit 25 minutes Trinidad Loera [facility] Procedures Date Procedure Procedure Detail Performing Clinician Start: 05-05-2024 Mammography Lori Aden MD Work Phone: Start: 03-13-2023 Mammography Jennifer Donaldson DO Work Phone: Start: 02-06-2022 Radex foot complete minimum 3 views Austin Grande MD Work Phone: Start: 03-04-2017 General examination of patient Brian miranda Other Start: 02-20-2016 Esophagogastroduodenoscopy Raghavendra NILL Start: 10-02-2013 Colonoscopy Jennifer Ledesmaaprdaphne DO Work Phone: Start: 10-02-2013 Colonoscopy Raghavendra NILL Start: 10-02-2013 Esophagogastroduodenoscopy Raghavendra NILL Start: 05-02-2007 Colonoscopy Raghavendra NILL Appendectomy Raghavendra NILL Arthroscopy of knee Raghavendra NILL Dilation and curettage Juan el NILL Dilation and curettage Juan el NILL Excision of bunion Raghavendra N ILL Repair of musculoten dinous cuff of shoulder Raghavendra NILL Plan of Treatment Date Care Activity Detail Author Start: 09-14-2025 End: 09-14-2025 Patient encounter procedure 09/14/2025 10:30 AM EDT Office Visit [facility] [address] [place] [address] Lori Aden MD [address] [place] [address] [facility] Start: 05-05-2025 Screening for malign ant neoplasm of breast Mammogram [facility] Start: 03-29-2025 End: 03-29-2025 Patient encounter procedure 03/29/2025 11:00 AM EST Office Visit [facility] [address] [address] Jennifer Donaldson DO [address] [address] [facility] Start: 02-06-2025 DIABETES SCREEN DIABETES SCREEN [facility] Start: 01-18-2025 Influenza vaccination Influenz a Vaccine (Season Ended) [facility] Start: 09-15-2024 End: 09-15-2024 Patient encounter procedure 09/15/2024 10:30 AM EDT Office Visit [facility] [address] [place] [id number] Lori Aden MD [address] [place] [address] [facility] Start: 03-26-2024 End: 03-26-2024 Patient encounter procedure 03/26/2024 9:45 AM EST Office Visit [facility] [address] [address] Jennifer Donaldson DO [address] [address] Arrived [facility] Comment on above: Arrived Start: 03-13-2024 Screening for malign ant neoplasm of breast Mammogram [facility] Start: 01-19-2024 Influenza vaccination Influenza Vacc ine (#1) [facility] Start: 10-03-2023 Screening for malign ant neoplasm of colon [facility] Start: 09-19-2023 [facility] Start: 09-04-2023 Actin smooth muscle IgG Ab [Units/volume] in Serum [facility] Start: 09-04-2023 Blood zinc measurement [facility] Start: 09-04-2023 Ceruloplasmin [Mass/volume] in Serum or Plasma [facility] Start: 09-04-2023 Hepatitis A virus Ab [Presence] in Serum by Immunoassay [facility] Start: 09-04-2023 Hepatitis A virus antibody, IgM type [facility] Start: 09-04-2023 Hepatitis B core antibody measurement [facility] Start: 09-04-2023 Hepatitis B core antibody measurement, IgM type [facility] Start: 09-04-2023 Hepatitis B virus surface Ab [Presence] in Serum [facility] Start: 09-04-2023 IgG [Mass/volume] in Serum or Plasma [facility] Start: 09-04-2023 Lipoprotein a [Moles/volume] in Serum or Plasma [facility] Start: 09-04-2023 Mitochondria M2 IgG Ab [Units/volume] in Serum [facility] Start: 09-04-2023 [facility] Start: 01-18-2023 Influenza vaccination INFLUENZA (#1) [facility] Start: 05-20-2022 ADVANCE DIRECTIVE DISCUSSION ADVANCE DIRECTIVE DISCUSSION [facility] Start: 05-20-2022 DEPRESSION ASSESSMENT DEPRESSION ASS ESSMENT [facility] Start: 02-06-2022 End: 04-08-2022 25-hydroxyvitamin D3 [Mass/volume] in Serum or Plasma [facility] Work Phone: Comment on above: Expected: 02/06/2022 , Expires: 04/08/2022 Start: 02-06-2022 End: 04-08-2022 MINOR BY IFA WITH REFLEX [facility] Work Phone: Comment on above: Expected: 02/06/2022 , Expires: 04/08/2022 Start: 02-06-2022 End: 04-08-2022 C reactive protein [Mass/volume] in Serum or Plasma [facility] Work Phone: Comment on above: Expected: 02/06/2022 , Expires: 04/08/2022 Start: 02-06-2022 End: 04-08-2022 CBC W Auto Differential panel - Blood [facility] Work Phone: Comment on above: Expected: 02/06/2022 , Expires: 04/08/2022 Start: 02-06-2022 End: 04-08-2022 Comprehensive metabolic 2000 panel - Serum or Plasma [facility] Work Phone: Comment on above: Expected: 02/06/2022 , Expires: 04/08/2022 Start: 02-06-2022 End: 04-08-2022 DNA double strand Ab [Units/volume] in Serum by Immunoassay [facility] Work Phone: Comment on above: Expected: 02/06/2022 , Expires: 04/08/2022 Start: 02-06-2022 End: 04-08-2022 Erythrocyte sedimentation rate [facility] Work Phone: Comment on above: Expected: 02/06/2022 , Expires: 04/08/2022 Start: 02-06-2022 End: 04-08-2022 Extractable nuclear Ab panel - Serum [facility] Work Phone: Comment on above: Expected: 02/06/2022 , Expires: 04/08/2022 Start: 02-06-2022 End: 04-08-2022 Thyrotropin [Units/volume] in Serum or Plasma [facility] Work Phone: Comment on above: Expected: 02/06/2022 , Expires: 04/08/2022 Start: 01-18-2022 Influenza vaccination INFLUENZA (#1) [facility] Start: 2021 ADVANCE DIRECTIVE DISCUSSION ADVANCE DIRECTIVE DISCUSSION [facility] Start: 2021 BONE DENSITY BONE DENSITY [facility] Start: 2021 Pneumococcal Vaccine : 65+ Years (1 of 1 - PCV) Pneumococcal Vaccine: 65+ Years (1 of 1 - PCV) [facility] Start: 2021 PNEUMOCOCCAL: 65+ (1 - PCV) PNEUMOCOCCAL: 65+ (1 - PCV) [facility] Start: 05-20-2021 DEPRESSION ASSESSMENT DEPRESSION ASS ESSMENT [facility] Start: 2006 Pneumococcal Vaccine : 65+ Years (1 of 1 - PCV) Pneumococcal Vaccine: 65+ Years (1 of 1 - PCV) [facility] Start: 2006 SHINGRIX VACCINE (1 of 2) SHINGRIX VACCINE (1 of 2) [facility] Start: 2001 COLOGUARD (FIT-DNA) COLOGUARD (FIT-D NA) [facility] Start: 2001 Colonoscopy COLONOSCOPY [facility] Start: 2001 COLORECTAL CANCER SCREENING COLORECTAL CANCER SCREENING [facility] Start: [address] COLONOGRAPHY [facility] Start: 2001 DIABETES SCREEN DIABETES SCREEN [facility] Start: 2001 FECAL OCCULT BLOOD FECAL OCCULT BLOO D [facility] Start: 2001 LIPID SCREEN LIPID SCREEN [facility] Start: 2001 SIGMOIDOSCOPY SIGMOIDOSCOPY [facility] Start: 1996 Mammography MAMMOGRAM [facility] Start: 11-08-1975 Urine microalbumin profile DTAP,TDAP,TD (1 - Tdap) [facility] Start: 1974 HEPATITIS C SCREENING HEPATITIS C SC REENING [facility] Start: 1974 HIV SCREENING HIV SCREENING [facility] Start: 1968 Adult depression screening assessment DEPRESSION SCREENING [facility] Start: 05-09-1957 COVID-19 VACCINE (#1) COVID-19 VACCI NE (#1) [facility] Start: 1956 Screening for malign ant neoplasm of colon [facility] Alpha 1 antitrypsin [Mass/volume] in Serum or Plasma [facility] Alpha 1 antitrypsin phenotyping [Identifier] in Serum or Plasma by Immunofixation [facility] Comprehensive metabo lic 2000 panel - Serum or Plasma [facility] DBT Breast - bilater al screening Bilateral screening mammogram with tomosynthesis Imaging Routine Other screening mammogram Ordered: 03/26/2024 [facility] Work Phone: Comment on above: Ordered: 03/26/2024 DXA Skeletal system Views for bone density DEXA bone density Imaging Routine Postmenopausal Ordered: 03/26/2024 [facility] Comment on above: Ordered: 03/26/2024 Hepatic function panel [facility] Hepatitis B virus surface Ag [Presence] in Serum or Plasma by Immunoassay [facility] Hepatitis C virus Ig G Ab [Presence] in Serum or Plasma by Immunoassay [facility] HFE gene mutations f ound [Identifier] in Blood or Tissue by Molecular genetics method Nominal [facility] Homogenous nuclear A b pattern [Titer] in Serum [facility] Nuclear Ab [Titer] i n Serum [facility] Patient Education Back Flexion S tretching Exercises [facility] Work Phone: End: 03-08-2023 XR FOOT GENERAL 3V AP/LAT/OBL BILATERAL XR FOOT GENERAL 3V AP/LAT/OBL BILATERAL Radiology Routine Pain in joint involving multiple sites 1 Occurrences starting 02/06/2022 until 03/08/[address] [facility] Work Phone: Comment on above: 1 Occurrences starti ng 02/06/2022 until 03/08/2023 XR FOOT GENERAL 3V AP/LAT/OBL BILATERAL XR FOOT GENERAL 3V AP/LAT/OBL BILATERAL Radiology Routine Pain in joint involving multiple sites 02/06/2022 2:46 PM EDT [facility] Work Phone: End: 03-08-2023 XR HAND GENERAL 3V PA/LAT/OBL BILATERAL XR HAND GENERAL 3V PA/LAT/OBL BILATERAL Radiology Routine Pain in joint involving multiple sites 1 Occurrences starting 02/06/2022 until 03/08/[address] [facility] Work Phone: Comment on above: 1 Occurrences starti ng 02/06/2022 until 03/08/2023 XR HAND GENERAL 3V PA/LAT/OBL BILATERAL XR HAND GENERAL 3V PA/LAT/OBL BILATERAL Radiology Routine Pain in joint involving multiple sites 02/06/2022 2:46 PM EDT [facility] Work Phone: XR Hip - right 2 Views [facility] Immunizations Immunization Date Immunization Notes Care Provider Carlos quevedo 07-22-2020 SARS-CoV-2 (COVID-19 ) mRNA BNT-162b2 vax Raghavendra PHILLIPS [facility] 07-01-2020 SARS-CoV-2 (COVID-19 ) mRNA BNT-162b2 vax Raghavendra PHILLIPS [facility] 05-16-2020 influenza virus vaccine, split virus (incl. purified surface antigen) Brian Espinosa Other [facility] Other 05-16-2020 influenza virus vaccine, unspecified formulation [facility] 04-29-2017 influenza, seasonal, injectable Trinidad Loera Other [facility] 06-23-2013 diphtheria, tetanus toxoids and acellular pertussis vaccine, unspecified formulation Brian Espinosa Other [facility] NEGATED: Highlighted row has not occurred!09-12-2022 influenza virus vaccine, unspecified formulation Raghavendra PHILLIPS [facility] Payers Date Payer Category Payer Self-pay [id number] 2021 Medicare [id number] 2021 Private Health Insurance [id number] 5 2021 Unknown [employer] [place] [employer] [place] [employer] SUPPLEMENT [id number] 2021-Present [phone] [address] [place] [address] Indemnity [id number] 2021 Unknown [id number] 1959 Medicare [id number] 1959 Unknown [id number] 1956 Unknown [id number] [id number] .2.727 1956 Unknown [id number] 2.16.840.1.226434.3.579 .2.727 1956 Unknown [id number] 2.16.840.1.568461.3.579 .2.593 1956 Unknown [id number] 2.16.840.1.078991.3.579 .2.593 1956 Unknown [id number] 2.16.840.1.372558.3.579 .2.593 1956 Unknown [id number] 2.16.840.1.752655.3.579 .2.1259 1956 Unknown [id number] 2.16.840.1.319714.3.579 .2.1259 1956 Unknown [id number] 2.16.840.1.577481.3.579 .2.1259 1956 Unknown [id number] [id number] .2.1259 Blue Cross Blue Shield [facility] [id number] Unknown [id number] [id number] .2.531 Unknown [id number] 2.16.840.1.919362.3.579 .2.531 Unknown [id number] [id number] .2.531 Social History Date Type Detail Facility Unknown if ever smoked [facility] Other Start: 12-10-2023 End: 09-15-2024 [facility] status [facility] Tobacco smoking consumption unknown [facility] Start: 1955 Sex Assigned At Not on file [facility] Start: 01-27-2022 End: 02-06-2022 Exposure to SARS-CoV-2 (event) Unable to assess [facility] Start: 02-03-2022 End: 02-13-2022 Exposure to SARS-CoV-2 (event) Not sure [facility] Start: 02-04-2018 End: 09-12-2022 Tobacco smoking status Never smoked tobacco (finding) [facility] Tobacco smoking status Never [facility] Start: 1955 Sex Assigned At Female [facility] Start: 11-21-2022 Tobacco use and exposure Smokeless tobacco non-user [facility] Start: 03-13-2024 End: 09-15-2024 Alcoholic beverage intake Ex-drinker (finding) [facility] Start: 12-10-2023 End: 09-15-2024 History of Social function [facility] Start: 03-22-2023 Alcohol Comment caffeine intake : no ne [facility] Sex Female (finding) [facility] Functional Status Date Assessment Result Facility 09-12-2022 Functional Status N/A [facility] Clinical Notes 07-08-2021 to 11-11-2024 Note Date & Type Note Facility 11-11-2024 Evaluation note Diagnosis Onset Date Resolution Acute right hip pain acute November 11, 2024 10:00am Elevated liver enzymes acute January 15 10:56am [facility] Work Phone: [phone]) 940-453804-29-2025 History of Present illness Narrative* Lori Aden MD - 09/15/2024 10:30 AM EDT Skin Check Location: Patient requests a full body skin examination Dermatologic history: history of Actinic Keratosis, family history of melanoma (niece) Last visit: 1 year ago Established patient All pertinent medical history, medications, and allergies were reviewed. General Exam: alert, oriented to person, place, and time, normal affect, well appearing Unaccompanied Scalp, Examined , exam limited by hair Right leg Examined Head, Face Examined Left leg Examined Neck Examined Right foot Examined Chest Examined Left foot Examined Back Examined Buttocks Examined Abdomen Examined Digits,nails: Examined Right arm Examined Left arm Examined Lymphatics: Not examined Hands Examined Skin Exam 1. SEBORRHEIC KERATOSIS (2) Left Leg, Right Leg Stuck on verrucous, veronica-brown papules and plaques. Patient was counseled regarding these benign growths. Removal is normally not necessary, but they may be removed if they are symptomatic or for cosmetic reasons. 2. LENTIGINES Generalized Scattered veronica macules in sun-exposed areas. The patient was informed that lentigines are benign pigmented lesions that occur on sun-exposed andsun-damaged skin. No treatment is necessary. Recommended regular use of broad spectrum sunscreen SPF 30 or higher 3. XEROSIS CUTIS (3) Generalized, Left Hand - Posterior, Right Hand - Posterior Dry, scaly skin Recommended soap and moisturizer handout given. Discussed use of unscented paraffin wax baths for hands. 4. PERSONAL HISTORY OF ACTINIC KERATOSIS Generalized Routine skin exams recommended. Next Visit: 1 year documented in this encounterBo[facility] [id number] History of Present illness Narrative* Jennifer Donaldson DO - 03/26/2024 9:45 AM EST Images from the original note were not included. Jennifer Donaldson DO Obstetrics and Gynecology Name: Margarita Cuba Date/Time of Service:03/26/2024 10:13 AM :1955 Age: 68 y.o. Subjective Margarita Cuba is a 68 y.o. female who is here for a routine exam. Gynecologic Exam (Patient here for a yearly. Denies problems. Mammogram and Dexa scan order sent [facility]. Colonoscopy 2022 Would like refill on estradiol (Estrace) vaginal cream. ) Control Contraception: post menopausal status. LMP: No LMP recorded. Patient is postmenopausal. Last Mammogram Results for orders placed in visit on 03/13/23 Bilateral screening mammogram with tomosynthesis Narrative EXAMINATION: BI MAMMOGRAM SCREENING TOMOSYNTHESIS BILATERAL CLINICAL HISTORY: SCREENING COMPARISON: [facility] from 2021, 2019. RESULT: 3-D tomosynthesis imaging of the bilateral breast(s) was performed. Density: Scattered fibroglandular density [2] There are no suspicious masses or asymmetries, areas of architectural distortion or suspicious areas of microcalcifications. Impression BIRADS 1 - Negative Recommended follow-up: Routine Screening Mamm Board Certified Radiologists. Accredited by the ACR and FDA. MAMMOGRAPHY IS VERY IMPORTANT TO YOUR HEALTH. THE [place] [employer] GUIDELINES RECOMMEND THATWOMEN 40 YEARS OF AGE AND OLDER SHOULD HAVE A MAMMOGRAM EVERY YEAR. A REMINDER LETTER WILL BE SENT AT THE APPROPRIATE TIME. THIS FACILITY UTILIZES A REMINDER SYSTEM TOENSURE ALL PATIENTS RECEIVE REMINDER NOTIFICATIONS AT THE APPROPRIATE TIME BASED ON THE RECOMMENDATIONS OF THIS EXAM. THIS INCLUDES REMINDERS FOR ROUTINE SCREENING MAMMOGRAMS, DIAGNOSTIC MAMMOGRAMS IN WHICH THE PATIENT IS ASKED TO RETURN FOR ADDITIONAL VIEWS, OR OTHER BREAST IMAGING INTERVENTIONS WHEN APPROPRIATE. THE PATIENT WILL BE PLACED IN THE APPROPRIATE REMINDER SYSTEM INCLUDING A REMINDER AT THE APPROPRIATE TIME FOR ANY PENDING ADDITIONAL VIEWS. ELECTRONICALLY SIGNED BY: Espinoza Sotomayor MD Current Outpatient Medications on File Prior to Visit Medication Sig Dispense Refill fexofenadine ODT (Mary ODT) 30 MG disintegrating tablet Take 30 mg by mouth in the morning. lansoprazole (Prevacid) [address] capsule Take 30 mg by mouth in the morning. No current facility-administered medications on file prior to visit. Past Medical History: Diagnosis Date Actinic keratosis Allergies Celiac disease (CMS/HCC) Hx of colonoscopy 2013 endoscope polyp removed Missed x2 Ulcerative colitis (CMS/FORMER[facility]) 2006 Past Surgical History: Procedure Laterality Date COLONOSCOPY 09/2022 COLONOSCOPY 2013 DILATION AND CURETTAGE OF UTERUS x2 FOOT SURGERY Left 2011 KNEE SURGERY Knee arthroscopy ROTATOR CUFF REPAIR Right 1998 Dr Rogers SIGMOIDOSCOPY* VEIN SURGERY 10/2017 Vericose vein Family History Problem Relation Name Age of Onset Heart disease Mother Diabetes Mother Stroke Mother Cancer Mother Breast cancer Mother 70 Heart failure Mother Other (renal problems) Mother Other (Otcell cancer) Father Social History Tobacco Use Smoking status: Never Smokeless tobacco: Never Substance Use Topics Alcohol use: Not Currently Comment: caffeine intake : none Drug use: Never OB History Para Term AB Living 5 3 2 3 SAB IAB Ectopic Multiple Live Births 2 3 # Outcome Date GA Lbr Angel/2nd Weight Sex Type Anes PTL Lv 5 Para Vag-Spont 4 Para Vag-Spont 3 Para Vag-Spont 2 SAB 1 SAB Allergies Allergen Reactions Dust Mite Extract Other Reaction(s): Unknown Gluten Meal Other Reaction(s): Intolerance Metaxalone Hives Penicillins Hives Other Reaction(s): Unknown Sulfa Antibiotics Hives Other Reaction(s): Unknown Sulfa. Sulphamethoxydiazine Hives Review of Systems Constitutional: Negative. Respiratory: Negative. Cardiovascular: Negative. Gastrointestinal: Negative. Musculoskeletal: Negative. Skin: Negative. Neurological: Negative. Endocrine: Negative. Objective BP 118/66 Wt 170 lb BMI 27.44 kg/m Body mass index is 27.44 kg/m . Physical Exam Genitourinary: Urethral meatus normal. No lesions in the vagina. Genitourinary Comments: Valsalva revealed stage I cystocele Right Labia: No lesions. Left Labia: No lesions. No vaginal discharge. Anterior vaginal prolapse present. Moderate vaginal atrophy present. Right Adnexa: not tender and no mass present. Left Adnexa: not tender and no mass present. No cervical lesion. Uterus is not tender. Uterus is midaxial. Urethral hypermobility present. No urethral stress urinary incontinence with cough stress test present. Bladder is not tender. Rectum: No rectovaginal septum nodularity. Breasts: Right: No mass, nipple discharge, skin change or tenderness. Left: No mass, nipple discharge, skin change or tenderness. HENT: Head: Normocephalic and atraumatic. Mouth/Throat: Mouth: Mucous membranes are moist. Cardiovascular: Rate and Rhythm: Normal rate and regular rhythm. Pulmonary: Effort: Pulmonary effort is normal. Breath sounds: Normal breath sounds. Abdominal: General: Bowel sounds are normal. Palpations: Abdomen is soft. Musculoskeletal: General: No tenderness. Cervical back: Neck supple. Neurological: Mental Status: She is alert and oriented to person, place, and time. Skin: General: Skin is warm and dry. Psychiatric: Mood and Affect: Mood normal. Vitals and nursing note reviewed. Assessment/Plan 1. Cystocele, midline (Primary) Discussed findings, stable. Stressed the importance of complete bladder emptying and avoiding long periods between voiding. Patient voiced understanding 2. Vulvar irritation Continue current treatment. Refill Rx sent 3. Postmenopausal Breast and pelvic exam performed. Discussed findings. Patient to contact the office with any changes to her gynecological condition. DEXA scan order sent. Patient to schedule appointment. Will notify patient of result - DEXA bone density 4. Other screening mammogram Mammogram order sent. Patient to schedule appointment - Bilateral screening mammogram with tomosynthesis 5. Gastroesophageal reflux disease without esophagitis Treatment refill rx sent ICD-10-CM 1. Cystocele, midline N81.11 2. Vulvar irritation N90.89 3. Postmenopausal Z78.0 DEXA bone density 4. Other screening mammogram Z12.31 Bilateral screening mammogram with tomosynthesis 5. Gastroesophageal reflux disease without esophagitis K21.9 Follow up in about 1 year (around 03/26/2025) for Yearly. Jennifer Donaldson DO 03/26/2024 10:13 AM documented in this encounterBoone Hospital [id number] Evaluation note* Author [facility] Authored November 20, 2023 1:27p m 68-year-old female referred to the gastroenterology clinic for evaluation of celiac disease and hepatic steatosis. - Celiac disease: Diagnosed based on serology (TTG IgA) and duodenal biopsies years ago. Patient already had a DEXA scan which showed osteopenia, it is being managed by PCP I recommended the patient to get pneumococcal vaccine by PCP. Continue Gluten free diet ( Avoid Thiamine deficiency) -Regarding fatty liver and elevated ALT, repeat ALT was normal, MINOR is positive otherwise laboratory workup for infectious autoimmune metabolic etiologies of liver diseases were unremarkable FibroScan showed LSM 3.8 consistent with no significant fibrosis and CAP 238 Patient does not have secondary causes of hepatic fat accumulation such as significant alcohol consumption, viral hepatitis, steatogenic medications (e.g., tamoxifen, amiodarone, methotrexate), or lipodystrophy. Pt was counseled about weight loss(10%) mediterranean diet and exercise ( >45 minutes X5 per week). Patient will get HAV and HBV vaccines at PCP office [facility] Work Phone: [phone]) 393-932704-17-2024 Evaluation note* Author [facility] Authored September 04, 2023 2:0 6pm 67-year-old female referred to the gastroenterology clinic for evaluation of celiac disease and hepatic steatosis. - Celiac disease: Diagnosed based on serology (TTG IgA) and duodenal biopsies years ago. Patient already had a DEXA scan which showed osteopenia, it is being managed by PCP I recommended the patient to get pneumococcal vaccine by PCP. Continue Gluten free diet ( Avoid Thiamine deficiency) -Regarding fatty liver and elevated ALT, will get laboratory work up for infectious, autoimmune and metabolic etiologies of liver diseases. Patient does not have secondary causes of hepatic fat accumulation such as significant alcohol consumption, viral hepatitis, steatogenic medications (e.g., tamoxifen, amiodarone, methotrexate), or lipodystrophy. Pt was counseled about weight loss(10%) mediterranean diet and exercise ( >45 minutes X5 per week). Will arrange for fibroscan Will check HBV and HAV serologies to determine the need for vaccinations [facility] Work Phone: [phone]) 697-862312-12-2023 Evaluation note* Encounter Date Diagnosis Assessment Notes Treatment Notes Treatment Clinical Notes Apr, Acute sinusitis, unspecified (ICD-10 - J01.90) Sinus infections can be triggered by a secondary infection from a viral URI or even seasonal allergies. Take medications as directed. Use saline nasal spray prior to presciption nasal spray. Take medications as directed, and complete all doses of medication even if you start to feel better. Patient advised to follow up with PCP if symptoms persist or worsen. Patient verbalized understanding and agreement with treatment plan. Apr, Other specified bacterial agents as the cause of diseases classified elsewhere (ICD-10 - B96.89) [facility] Other 12-01-2023 Evaluation note* Encounter Date Diagnosis Assessment Notes Treatment Notes Treatment Clinical Notes Apr, Steatosis of liver (ICD-10 - K76.0) Discussed potential referral to Liver specialist, but first will obtain labs and US to help them assess her status. Liver steatosis was a incidental finding from a CT chest completed this summer in [place] when she fell on vacation at a [employer]. [facility] Other 06-28-2023 Evaluation note* Encounter Date Diagnosis Assessment Notes Treatment Notes Treatment Clinical Notes Oct, Hepatic steatosis (ICD-10 - K76.0) fatty liver commented on the chest CT. 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 Espinosa for surveillance colonoscopy. Last colonoscopy completed 09/2013 with tubular adenoma. Reports frequent abdominal pain, nausea and bowel change for which she contributes to celiac disease. Denies rectal pain or bleeding. Denies vomiting. No unexplained weight loss. No known family history of coon cancer. History of Present Illness 66 yo female with h/o Celiac disease, GERD, referred for surveillance colonoscopy, last colonoscopyin 2013 with small tubular adenoma in descending colon, denies change in bms or blood in stools, patient reports some intermittent GERD breakthrough despite PPI, last EGD 2013 with small hiatal hernia, rare dysphagia, no early satiety, no odynophagia; abdominal operations significant for appendectomy; no asa or NSAID use; no SBE prophylaxis; no fmhx of GI malignancy or IBD. no tobacco use. Review of Systems PHQ Score Initial Depression Screen Score: 0 ROS - Provider Constitutional: no fever, no sweats, no weight loss. Eyes: no glasses, no blurred vision, no visual loss. ENMT: no dentures, no hoarseness, no swallowing difficulties, no hearing loss, no ear infection(s),no nose bleeds. Cardiovascular: normal blood pressure, no chest pain, regular heartbeat, no heart murmur. Respiratory: no shortness of breath, no cough, no asthma, no wheezing. Gastrointestinal: no nausea, no vomiting, no diarrhea, no constipation, no blood in stool, no change in bowel habits, no abdominal pain, no hepatitis. Genitourinary: no kidney stones, no urine infection, no dysuria. Musculoskeletal: no pain, no weakness. Skin: no changing moles, no rash, no skin lumps. Neurologic: no seizures, no epilepsy, no headache. Psychiatric: no emotional or psychiatric problem. Heme/Lymph: no bleeding problems, no anemia, no blood clots, no transfusions. Allergy/Immunologic: no swollen lymph nodes/glands, no IV drug abuse. Other: Additional ROS info: Except as noted in the above Review of Systems and in the History of Present Illness, all other systems have been reviewed and are negative or noncontributory. Physical Exam Vitals & Measurements HR: 70(Peripheral) RR: 16 BP: 122/86 HT: 66 in HT: 167.6 cm WT: 79.9 kg WT: 175.78 lb BMI: 28.44 HEENT: normal conjunctiva, sclera clear, no scleral icterus, EOM intact, PERRLA, oral mucosa moist without lesions. Neck: trachea midline, no mass, symmetric, no thyromegaly or nodules, no adenopathy Respiratory: lungs CTA, respirations non labored. Cardiovascular: regular rate and rhythm, no murmur, no pedal edema or varicosities. Gastrointestinal: soft, non distended, no tenderness, no masses, no palpable hernias, diastasis recti no, no hepatosplenomegaly; normal bs Lymphatic: no cervical adenopathy, no supraclavicular adenopathy Musculoskeletal: normal gait, digits and nails without infection, nodes, cyanosis, clubbing. Skin: no rashes, no lesions, no ulcers, no subcutaneous nodules, induration. Psychiatric/Neuro: oriented to time, place, person, judgement normal, affect appropriate for age, insight intact, no focal deficits. Tests: review of old records completed, Discussed surgical options, risks, and possible complications with patient. Assessment/Plan 1. Personal history of colonic polyps (Z86.010: Personal history of colonic polyps) plan surveillance colonoscopy under anesthesia, informed consent obtained. 2. Hiatal hernia with GERD, (K44.9: Diaphragmatic hernia without obstruction or gangrene)Diaphragmatic hernia without obstruction or gangrene plan EGD with anesthesia, informed consent obtained. Follow-up No qualifying data available Problem List/Past Medical History Ongoing BMI 28.0-28.9,adult Celiac disease Hiatal hernia with GERD History of polyp of colon Peripheral venous insufficiency Personal history of colonic polyps Varicose veins of legs Historical Gastroesophageal reflux disease Procedure/Surgical History EGD - Esophagogastroduodenoscopy (02/20/2016), Colonoscopy (10/02/2013), EGD - Esophagogastroduodenoscopy (10/02/2013), Colonoscopy (05/02/2007), Appendectomy, Arthroscopy of knee, Bunionectomy, Dilation and curettage, Dilation and curettage, Rotator cuff repair. Medications Mary, 180 mg, Oral, Daily lansoprazole, 30 mg, Oral, Daily magnesium oxide, 400 mg, Oral, Daily Allergies Penicillin (Hives) sulfamethoxazole (Hives) Social History Alcohol - Denies Alcohol Use, 09/12/2022 Substance Abuse - Denies Substance Abuse, 09/12/2022 Tobacco Never (less than 100 in lifetime) Tobacco Use:. Never Smokeless Tobacco Use:., 09/12/2022 Family History Diabetes mellitus type 2: Mother and Sister. Heart disease: Mother. Primary malignant neoplasm of female breast: Mother. Primary malignant neoplasm of lung: Father. Thyroid cancer: Sister. Immunizations Vaccine Date Status Comments influenza virus vaccine, sarah (more content not included)...[facility]:Result Comment: Electronically Signed By: XANDER GREEN, Raghavendra [place]\Date and Time Signed: 09/12/22 13:38 [id number] Evaluation note * Encounter Date Diagnosis Assessment Notes Treatment Notes Treatment Clinical Notes Aug, Polyp of colon, unspecified part of colon, unspecified type (ICD-10 - K63.5) Pt states she is due for colonoscopy. Has personal history of celiac and would like to get caught up with screening Aug, Lump of left thigh (ICD-10 - R22.42) Agrees to [place] of area in question. Cards Off Other 10-19-2022 NoteHISTORY: Bone density screening. COMPARISON: None available PROCEDURE: Imaging of the lumbar spine and bilateral hips was obtained for bone density evaluation. FINDINGS: REGION BMD (g/cm??) YOUNG ADULT T-SCORE AGE-MATCHED Z-SCORE LEFT NECK 0.710 -1.2 0.3 RIGHT NECK 0.741 -1.0 0.6 LUMBAR 0.788 -2.4 -0.6 The mean BMD and corresponding T-score listed above indicate: Osteopenia and places the patient at a mild to moderate increased risk for fracture. There may be a future risk of developing osteoporosis. Recommend follow-up exam in 1 year, sooner as clinically necessary. Comment: The T-score is the primary focus of the interpretation of a patient???s bone mineral density measurement. The T-score is the number of standard deviations and individual is above or below the mean value for a young female having normal bone mass. The WHO defines osteoporosis based on the T-score value: +1.0 to -0.9 : Normal bone mass -1.0 to -2.5 : Osteopenia and thus may be at future risk of fracture. -2.6 to -5.0 : Osteoporosis and at significantly increased risk of fracture. IMPRESSION: OSTEOPENIA : ONE YEAR FOLLOW-UP RECOMMENDED Report reported and signed by Pepe Quesada on 03/07/2022 1157[facility]09[facility]27-2022 NoteHNO ID: [id number] Author: Carmen Grande MD Service: ? Author Type: Physician Type: Progress Notes Filed: 02/13/2022 12:51 PM Note Text: Rheumatology Outpatient Clinic Date of Service: 02/13/2022 Patient: Margarita Cuba Medical Record: [id number] Primary Care Physician: No primary care provider on file. Referring Provider: SELF Last Rheumatology visit: 02/06/2022 (with Carmen Grande) Chief complaint: Recheck and discuss test results Self referral requested for an opinion regarding multiple joint pain. My final recommendations will be communicated back to the requesting physician by way of shared Medical record or letter to requesting physician via [place] mail. History of Present Illness Margarita Cuba is a 66 year old female with medical history of Celiac disease, mononucleosis at 17 yrs presents on 02/13/2022 for virtual visit for evaluation of Recheck and discuss test results. Her most recent MINOR was positive (02/06/2022). HISTORY OF PRESENT ILLNESS Patient reports pain over hands (DIPs, PIPs), wrists, collar bone and feet, for about 5 years Pain is stable She had left rotator cuff repair over left Shoulder and still has pain over left shoulder which is worse with lying on that side. Other joint pain is worse after activities. Has noted joint swelling only over right index DIP, denies any other joint swelling. Has morning stiffness for 30 min Medications tried for pain - tylenol, NSAIDs doesn't help Reports intermittent worsening of her joint pain when she has widespread pain, those episodes occur after inadvertent exposure to gluten and symptoms resolves after avoiding gluten. She reports being seen by deck steward many yrs ago and was diagnosed Sjogren and fibromyalgia, was not given any medications so she did not follow up. She also reports dry eyes and reports that her Esme test was <2 mm. Denies history of inflammatory eye disease, psoriasis, history of kidney disease/biopsy, nephrolithiasis, peptic ulcer disease, tuberculosis, 2 miscarriages at week 12 and 16, blood clots, Denies malignancy, pleural/pericardial effusion, CHF, CAD, CVA. INTERVAL HISTORY Today Patient has a virtual visit for discussion of test results. She reports doing well. She denies any new symptoms. Patient-Entered Data PAIN EVALUATION 02/13/2022 1003 Pain Level: 1 Pain Location: -- Hands, feet. PROMIS Assessments PROMIS Assessments 02/13/2022 Mental Health Percentile 63 % Pain Interference Percentile 62 % Fatigue Percentile 69 % Physical Function Percentile 42 % RAPID 3 James Activities of Daily Living 02/13/2022 9:42 AM Dress self? Without ANY difficulty Get in and out of bed? Without ANY difficulty Walk outdoors? Without ANY difficulty Wash and dry body? Without ANY difficulty Get in and out of car? Without ANY difficulty RAPID 3 Disease Activity Weighed Score Levels: 0 - 1: Near Remission 1.3 - 2.0: Low Severity 2.3 - 4.0: Moderate Severity 4.3 - 10.0: High Severity RAPID-3 Weighed Score 02/13/2022 RAPID 3 Weighed Score 0.33 (Near Remission (NR)) Review of Systems REVIEW OF SYSTEMS: Joint pain: As above Joint swelling: As above Joint stiffness: 30 min Back/neck pain: Denies Enthesopathic pain: Denies Fever: Denies Change in weight: Denies Lymphadenopathy: Denies Mucosal ulcers: Denies Skin rash: Denies Photosensitive rash: yes Alopecia: Denies Chest Pain: Denies Dyspnea: Denies Cough : Chronic allergic dry cough Difficulty swallowing: Denies Nausea/vomiting: Denies Heartburn: Denies Abdominal Pain: Denies Diarrhea/constipation :Denies Blood in stool : Denies Dysuria/hematuria: Denies Muscle pain: Denies Muscle weakness: Denies Numbness: Sometimes over fingers Headache: yes change in vision: Denies Confusion: Denies Seizures: Denies Raynaud's: Denies Sicca: Yes, dry eyes and mouth, relates to bendryl Past Medical History As in HPI Past Surgical History Left knee cyst removal? Allergy ALLERGIES Allergen Reactions Gluten Intolerance Penicillins Unknown Sulfa (Sulfonamide * Unknown Sulfa. Family History Son and grandkids has celiac disease The patient denies family history of SLE, RA, Sarcoidosis, Scleroderma, IBD or Psoriasis. Social History Deneis smoking and drinking alcohol Current Medications Current Outpatient Medications on File Prior to Visit Medication Sig azithromycin (ZITHROMAX) 250 mg tablet TAKE 2 TABLETS BY MOUTH ON DAY 1, THEN TAKE 1 TABLET BY MOUTH DAILY DAYS 2 THRU 5 diphenhydrAMINE HCl (BENADRYL) 2 % gel Take 25 mg by mouth. lansoprazole (PREVACID) 30 mg capsule Take 30 mg by mouth once daily. fexofenadine HCl (MARY ORAL) Take by mouth. Takes vitamin D, zinc OTC No current facility-administered medications on file prior to visit. Labs CBC Latest Ref Rng AND Units 02/06/2022 WBC 3.70 - 11.00 k/uL 6.65 HEMOGLOBIN 11.5 - 15.5 g/dL 13.9 (more content not included)...[facility]09-27-2022 History of Present illness Narrative* Carmen Grande MD - 02/13/2022 10:30 AM EDT Images from the original note were not included. Rheumatology Outpatient Clinic Date of Service: 02/13/2022 Patient: Margarita Cuba Medical Record: [id number] Primary Care Physician: No primary care provider on file. Referring Provider: SELF Last Rheumatology visit: 02/06/2022 (with Carmen Grande) Chief complaint: Recheck and discuss test results Self referral requested for an opinion regarding multiple joint pain. My final recommendations willbe communicated back to the requesting physician by way of shared Medical record or letter to requesting physician via [place] mail. History of Present Illness Margarita Cuba is a 66 year old female with medical history of Celiac disease, mononucleosis at 17 yrs presents on 02/13/2022 for virtual visit for evaluation of Recheck and discuss test results. Her most recent MINOR was positive (02/06/2022). HISTORY OF PRESENT ILLNESS Patient reports pain over hands (DIPs, PIPs), wrists, collar bone and feet, for about 5 years Pain is stable She had left rotator cuff repair over left Shoulder and still has pain over left shoulder which is worse with lying on that side. Other joint pain is worse after activities. Has noted joint swelling only over right index DIP, denies any other joint swelling. Has morning stiffness for 30 min Medications tried for pain - tylenol, NSAIDs doesn't help Reports intermittent worsening of her joint pain when she has widespread pain, those episodes occurafter inadvertent exposure to gluten and symptoms resolves after avoiding gluten. She reports being seen by deck steward many yrs ago and was diagnosed Sjogren and fibromyalgia, was not given any medications so she did not follow up. She also reports dry eyes and reports that her Esme test was <2 mm. Denies history of inflammatory eye disease, psoriasis, history of kidney disease/biopsy, nephrolithiasis, peptic ulcer disease, tuberculosis, 2 miscarriages at week 12 and 16, blood clots, Denies malignancy, pleural/pericardial effusion, CHF, CAD, CVA. INTERVAL HISTORY Today Patient has a virtual visit for discussion of test results. She reports doing well. She denies any new symptoms. Patient-Entered Data PAIN EVALUATION 02/13/2022 1003 Pain Level: 1 Pain Location: -- Hands, feet. PROMIS Assessments PROMIS Assessments 02/13/2022 Mental Health Percentile 63 % Pain Interference Percentile 62 % Fatigue Percentile 69 % Physical Function Percentile 42 % RAPID 3 James Activities of Daily Living 02/13/2022 9:42 AM Dress self? Without ANY difficulty Get in and out of bed? Without ANY difficulty Walk outdoors? Without ANY difficulty Wash and dry body? Without ANY difficulty Get in and out of car? Without ANY difficulty RAPID 3 Disease Activity Weighed Score Levels: 0 - 1: Near Remission 1.3 - 2.0: Low Severity 2.3 - 4.0: Moderate Severity 4.3 - 10.0: High Severity RAPID-3 Weighed Score 02/13/2022 RAPID 3 Weighed Score 0.33 (Near Remission (NR)) Review of Systems REVIEW OF SYSTEMS: Joint pain: As above Joint swelling: As above Joint stiffness: 30 min Back/neck pain: Denies Enthesopathic pain: Denies Fever: Denies Change in weight: Denies Lymphadenopathy: Denies Mucosal ulcers: Denies Skin rash: Denies Photosensitive rash: yes Alopecia: Denies Chest Pain: Denies Dyspnea: Denies Cough : Chronic allergic dry cough Difficulty swallowing: Denies Nausea/vomiting: Denies Heartburn: Denies Abdominal Pain: Denies Diarrhea/constipation :Denies Blood in stool : Denies Dysuria/hematuria: Denies Muscle pain: Denies Muscle weakness: Denies Numbness: Sometimes over fingers Headache: yes change in vision: Denies Confusion: Denies Seizures: Denies Raynaud's: Denies Sicca: Yes, dry eyes and mouth, relates to bendryl Past Medical History As in HPI Past Surgical History Left knee cyst removal? Allergy ALLERGIES Allergen Reactions Gluten Intolerance Penicillins Unknown Sulfa (Sulfonamide * Unknown Sulfa. Family History Son and grandkids has celiac disease The patient denies family history of SLE, RA, Sarcoidosis, Scleroderma, IBD or Psoriasis. Social History Deneis smoking and drinking alcohol Current Medications Current Outpatient Medications on File Prior to Visit Medication Sig azithromycin (ZITHROMAX) 250 mg tablet TAKE 2 TABLETS BY MOUTH ON DAY 1, THEN TAKE 1 TABLET BY MOUTH DAILY DAYS 2 THRU 5 diphenhydrAMINE HCl (BENADRYL) 2 % gel Take 25 mg by mouth. lansoprazole (PREVACID) 30 mg capsule Take 30 mg by mouth once daily. fexofenadine HCl (MARY ORAL) Take by mouth. Takes vitamin D, zinc OTC No current facility-administered medications on file prior to visit. Labs CBC Latest Ref Rng & Units 02/06/2022 WBC 3.70 - 11.00 k/uL 6.65 HEMOGLOBIN 11.5 - 15.5 g/dL 13.9 HEMATOCRIT 36.0 - 46.0 % 43.6 PLATELETS 150 - 400 k/uL 238 ABS NEUT (ANC) 1.45 - 7.50 k/uL 4.09 ABS LYMPH 1.00 - 4.00 k/uL 1.79 CMP Latest Ref Rng & Units 02/06/2022 SODIUM 136 - 144 mmol/L 141 POTASSIUM 3.7 - 5.1 mmol/L 4.1 CHLORIDE 97 - 105 mmol/L 106(H) CO2 22 - 30 mmol/L 25 GLUCOSE 74 - 99 mg/dL 90 BUN 7 - 21 mg/dL 19 CREATININE 0.58 - 0.96 mg/dL 0.83 CALCIUM, TOTAL 8.5 - 10.2 mg/dL 9.8 AST 13 - 35 U/L 30 ALT 7 - 38 U/L 40(H) ALKALINE PHOSPHATASE 34 - 123 U/L 96 ESR, WSR Latest Ref Rng & Units 02/06/2022 WSR 0 - 20 mm/hr 17 CRP Latest Ref Rng & Units 02/06/2022 CRP <0.9 mg/dL 0.7 Antibodies Latest Ref Rng & Units 02/06/2022 02/06/2022 MINOR Negative Positive(A) - MINOR TITER - 1:80 - MINOR PATTERN - Nuclear homogenous - DNA ANTIBODY W/CONFIRMATION <30 IU/mL <12 <12 SYNTHETIC SOIL BLOCKS PULPER ANTIBODY QUAL Negative Negative Negative SSA ANTIBODY QUAL Negative Negative Negative GUERITA-1 ANTIBODY, IGG <1.0 AI <0.2 <0.2 GUERITA 1 ANTIBODY QUAL Negative Negative Negative RIBOSOMAL SYNTHETIC SOIL BLOCKS PULPER AB <1.0 AI <0.2 <0.2 RIBOSOMAL SYNTHETIC SOIL BLOCKS PULPER QUAL Negative Negative Negative ANTI-SSA <1.0 AI <0.2 <0.2 ANTI-SSB <1.0 AI 0.2 0.2 ANTI-SM <1.0 AI <0.2 <0.2 SM ANTIBODY Negative Negative Negative SCL-70 AB QUAL Negative Negative Negative SCL-70 ABS, EIA <1.0 AI <0.2 <0.2 CENTROMERE AB <1.0 AI <0.2 <0.2 CENTROMERE AB QUAL Negative Negative Negative CHROMATIN AB <1.0 AI <0.2 <0.2 CHROMATIN AB QUAL Negative Negative Negative Vitamin D Latest Ref Rng & Units 02/06/2022 VITAMIN D 25 HYDROXY 31.0 - 80.0 ng/mL 56.6 Imaging Last XR Hand/Finger - Impression Only XR HAND GENERAL 3V PA/LAT/OBL BILATERAL Exam End: 02/06/2022 2:46 PM (Final result) Impression: IMPRESSION: No findings of inflammatory arthropathy. Computer Installation Engineer: DANIEL Transcribe Date/Time: Feb 08 2022 1:47P ... Last MRI Hand - Impression Only No resulted procedures found. Last XR Chest - Impression Only No resulted procedures found. Last XR Cervical Spine - Impression Only No resulted procedures found. Health Maintenance Current Immunizations Never Reviewed No immunizations on file. Physical Exam not done due to virtual visit Diagnoses: (M19.041, M19.042) Primary osteoarthritis of both hands (primary encounter diagnosis) (R76.8) Positive MINOR (antinuclear antibody) (M25.50) Pain in joint involving multiple sites Impression and Plan 1. Osteoarthritis Patient with joint pain mostly over DIPs Had No swelling of joints except one DIP On exam there was no synovitis but had bony enlargement of DIPs Labs and radiographs reviewed- inflammatory markers were normal, MINOR is low titer 1 :80 with panel negative including SSA/SSB. Radiograph hands and feet did not show any evidence of erosions. Her joint pain is most likely secondary to osteoarthritis -Discussed current up to date management, health and wellness and integrative medicine approach. I informed that disease modifying drugs has not been found to be beneficial for OA, however there are reports on benefit with exercise. -For pain relief may apply over the counter arthritis cream (voltaren gel, biofreeze, icy hot, asper cream, tiger balm, capsacin, etc.) to painful joints up to four times a day. Avoid contact with eyes. May take ES acetaminophen 1000mg twice a for joint pain. Do not exceed 3000mg /day. May take daily oral anti-inflammatory medication as well but not recommended for patients with history of GI bleeding,heart disease, stroke or renal insufficiency. May apply heat/ice 20minutes on andoff to areas of pain Avoid aggravating triggers. -Recommend exercising 30minutes 3 times a week, recommend weight-bearing aerobic exercises such as walking, dancing, low impact aerobics, elliptical machine, stair climbing, gardening Range of motion exercises and muscle strengthening exercises Recommend avoiding high impact exercises such as jumping, running or jogging or movements where youbend forward and twist the waist, for instance- touching your toes, sit-ups, using row machine -Consider yoga or andrés chi, water aquatics/pool exercise. -Continued healthy diet , improving sleep hygiene/quality, may also consider option of osteopathic or chiropractic manipulation and acupuncture procedures, massage therapy, braces/splints. 2. Sicca symptoms She reports dry eyes with Esme test less than 2 mm and dry mouth She relates her dry eyes and dry mouth to Benadryl SSA/SSB is neagative It is unlikely that she has Sjogrens 3. Positive MINOR Positive MINOR Patient denies joint swelling, oral ulcers, malar rash, discoid rash, photosensitivity, alopecia, serositis. No synovitis on exam. Labs reviewed with no evidence of hemolytic anemia, lymphopenia or thrombocytopenia. MINOR is only 1:80 and panel of antibodies including dsDNA, cartwright, SSA/SSB, SYNTHETIC SOIL BLOCKS PULPER is negative. This makes a diagnosis of systemic lupus/Sjogrens unlikely Her muscle strength is normal, which goes against a diagnosis of myositis. She has no skin thickening, there is no sclerodactyly, all of which go against the diagnosis of scleroderma An MINOR itself is a non-specific finding, especially if without clinical correlation. A positive ANAresult may occur in healthy individuals, those with FH of auto-immune diseases or associated with avariety of diseases, auto-immune diseases-rheumatologic and non-rheumatologic (such as dermatologicdiseases, endocrine, GI, neuro, inflammatory, medication induced, infections, neoplasms and other). 4. Celiac disease She reports worsening of whole body pain upon inadvertent exposure to gluten Continue on gluten-free diet vitamin D is adequate 5 Chronic pain/fatigue She also reports widespread pain with fatigue, does not feel fresh in the morning, has short-term memory loss Since underlying sleep apnea may cause or worsen chronic pain, recommend PCP to order sleep studies management include regular graded aerobic exercise (start low and go slow), improving sleep hygieneand quality, continuing with healthy diet, Vit D supplementation, Physical therapy and aquatic pooltherapy. There are some reports on benefits from chriopractic and acupuncture procedures, Yoga, andrés chi, therapeutic massage, and other body-based therapies to relieve muscle spasms and stiffness. Medication, while important, are not first choice and not indicated for all patients, and not the only treatment. Patient education, exercise, self- management skills and alternative therapies help treat fibromyalgia symptoms. Certain patient require anti-depressants, especially if they have a diagnosis of depression. Patients who have other associated disorders, such as depression, would need to be evaluated and treated by their Primary care physician or Psychiatrist. Medications e.g gabapentin/lyrica or savella may be helpful. As discussed, this is a pain syndrome and usually well managed by primary care physicians. In certain cases, a referral to a test specialist and multidisciplinary management may be required, in patients who fail traditional management approach as prescribed by primary care physician and as listed above. 6. Healthcare maintenance/Malignancy screening Defer to PCP Orders this visit: [facility] on 02/13/22 diphenhydramine HCl (BENADRYL ALLERGY ORAL) No follow-ups on file. I spent a total of 21 minutes on the date of the service which included review of labs, discussion of lab results with the patient, clinical documentation. Carmen Grande MD, [facility] Rheumatology documented in this encounterAden[facility] NoteHNO ID: [id number] Author: RT Olayinka(R) Service: ? Author Type: Technologist Type: Progress Notes Filed: 02/06/2022 2:45 PM Note Text: Radiology Service Progress Note PATIENT NAME: Margarita Cuba DATE OF SERVICE: February 06, 2022 TIME: 2:44 PM PATIENT IDENTITY VERIFICATION COMPLETED USING TWO (2) IDENTIFIERS: Name and Date of confirmed by patient verbally. FALL SCREENING: Has the patient had 2 falls in the last year or 1 fall with injury or currently using an Ambulatory Assistive Device (Walker, Cane, Wheelchair, Crutches, etc.)? No PATIENT GENDER DATA: Female. status: : No status: N/A PATIENT RELEVANT IMPLANT DATA REVIEWED: Not Applicable RADIOLOGY DEPARTMENT: General X-ray: Exam(s) Completed: Lower Extremity X-Ray(s): Foot, Bilateral and Wt. Bearing Upper Extremity X-Ray(s): Hand, bilateral PERIPHERAL IV DATA: Not applicable SIGNED BY: RT Olayinka(R) February 06, 2022 2:44 [facility] NoteHNO ID: [id number] Author: Carmen Grande MD Service: ? Author Type: Physician Type: Progress Notes Filed: 02/13/2022 12:54 PM Note Text: Rheumatology Outpatient Clinic Date of Service: 02/06/2022 Patient: Margarita Cuba Medical Record: [id number] Primary Care Physician: No primary care provider on file. Referring Provider: SELF Last Rheumatology visit: 02/06/2022 (with Carmen Grande) Chief complaint: New Patient and Arthritis Self referral requested for an opinion regarding multiple joint pain. My final recommendations will be communicated back to the requesting physician by way of shared Medical record or letter to requesting physician via [place] mail. History of Present Illness Margarita Cuba is a 66 year old female with medical history of Celiac disease, mononucleosis at 17 yrs presents on 02/06/2022 for an in-person visit for evaluation of New Patient and Arthritis. Her most recent MINOR was positive (02/06/2022). HISTORY OF PRESENT ILLNESS Patient reports pain over hands (DIPs, PIPs), wrists, collar bone and feet, for about 5 years Pain is stable She had left rotator cuff repair over left Shoulder and still has pain over left shoulder which is worse with lying on that side. Other joint pain is worse after activities. Has noted joint swelling only over right index DIP, denies any other joint swelling. Has morning stiffness for 30 min Medications tried for pain - tylenol, NSAIDs doesn't help Reports intermittent worsening of her joint pain when she has widespread pain, those episodes occur after inadvertent exposure to gluten and symptoms resolves after avoiding gluten. She reports being seen by deck steward many yrs ago and was diagnosed Sjogren and fibromyalgia, was not given any medications so she did not follow up. She also reports dry eyes and reports that her Esme test was <2 mm. Denies history of inflammatory eye disease, psoriasis, history of kidney disease/biopsy, nephrolithiasis, peptic ulcer disease, tuberculosis, 2 miscarriages at week 12 and 16, blood clots, Denies malignancy, pleural/pericardial effusion, CHF, CAD, CVA. Patient-Entered Data PAIN EVALUATION No data found in the last 1 encounters. PROMIS Assessments PROMIS Assessments 02/13/2022 Mental Health Percentile 63 % Pain Interference Percentile 62 % Fatigue Percentile 69 % Physical Function Percentile 42 % RAPID 3 James Activities of Daily Living 02/13/2022 9:42 AM Dress self? Without ANY difficulty Get in and out of bed? Without ANY difficulty Walk outdoors? Without ANY difficulty Wash and dry body? Without ANY difficulty Get in and out of car? Without ANY difficulty RAPID 3 Disease Activity Weighed Score Levels: 0 - 1: Near Remission 1.3 - 2.0: Low Severity 2.3 - 4.0: Moderate Severity 4.3 - 10.0: High Severity RAPID-3 Weighed Score 02/13/2022 RAPID 3 Weighed Score 0.33 (Near Remission (NR)) Review of Systems REVIEW OF SYSTEMS: Joint pain: As above Joint swelling: As above Joint stiffness: 30 min Back/neck pain: Denies Enthesopathic pain: Denies Fever: Denies Change in weight: Denies Lymphadenopathy: Denies Mucosal ulcers: Denies Skin rash: Denies Photosensitive rash: yes Alopecia: Denies Chest Pain: Denies Dyspnea: Denies Cough : Chronic allergic dry cough Difficulty swallowing: Denies Nausea/vomiting: Denies Heartburn: Denies Abdominal Pain: Denies Diarrhea/constipation :Denies Blood in stool : Denies Dysuria/hematuria: Denies Muscle pain: Denies Muscle weakness: Denies Numbness: Sometimes over fingers Headache: yes change in vision: Denies Confusion: Denies Seizures: Denies Raynaud's: Denies Sicca: Yes, dry eyes and mouth, relates to bendryl Past Medical History As in HPI Past Surgical History Left knee cyst removal? Allergy ALLERGIES Allergen Reactions Gluten Intolerance Penicillins Unknown Sulfa (Sulfonamide * Unknown Sulfa. Family History Son and grandkids has celiac disease The patient denies family history of SLE, RA, Sarcoidosis, Scleroderma, IBD or Psoriasis. Social History Deneis smoking and drinking alcohol Current Medications Current Outpatient Medications on File Prior to Visit Medication Sig azithromycin (ZITHROMAX) 250 mg tablet TAKE 2 TABLETS BY MOUTH ON DAY 1, THEN TAKE 1 TABLET BY MOUTH DAILY DAYS 2 THRU 5 diphenhydrAMINE HCl (BENADRYL) 2 % gel Take 25 mg by mouth. lansoprazole (PREVACID) 30 mg capsule Take 30 mg by mouth once daily. fexofenadine HCl (MARY ORAL) Take by mouth. Takes vitamin D, zinc OTC No current facility-administered medications on file prior to visit. Labs CBC Latest Ref Rng AND Units 02/06/2022 WBC 3.70 - 11.00 k/uL 6.65 HEMOGLOBIN 11.5 - 15.5 g/dL 13.9 HEMATOCRIT 36.0 - 46.0 % 43.6 PLATELETS 150 - 400 k/uL 238 ABS NEUT (ANC) 1.45 - 7.50 k/uL 4.09 ABS LYMPH 1.00 - 4.00 k/uL 1.79 CMP Latest Ref Rng AND Units 02/06/2022 SODI (more content not included)...[facility]09-20-2022 Instructions* Patient Instructions* Carmen Grande MD - 02/06/2022 2:02 PM EDT -Discussed current up to date management, health and wellness and integrative medicine approach. I informed that disease modifying drugs has not been found to be beneficial for OA, however there are reports on benefit with exercise. -For pain relief may apply over the counter arthritis cream (voltaren gel, biofreeze, icy hot, asper cream, tiger balm, capsacin, etc.) to painful joints up to four times a day. Avoid contact with eyes. May take ES acetaminophen 1000mg twice a for joint pain. Do not exceed 3000mg /day. May take daily oral anti-inflammatory medication as well but not recommended for patients with history of GI bleeding,heart disease, stroke or renal insufficiency. May apply heat/ice 20minutes on andoff to areas of pain Avoid aggravating triggers. -Recommend exercising 30minutes 3 times a week, recommend weight-bearing aerobic exercises such as walking, dancing, low impact aerobics, elliptical machine, stair climbing, gardening Range of motion exercises and muscle strengthening exercises Recommend avoiding high impact exercises such as jumping, running or jogging or movements where youbend forward and twist the waist, for instance- touching your toes, sit-ups, using row machine -Consider yoga or andrés chi, water aquatics/pool exercise. -Continued healthy diet , improving sleep hygiene/quality, may also consider option of osteopathic or chiropractic manipulation and acupuncture procedures, massage therapy, braces/splints. Continue f/u with PCP for cardiovascular disease prevention, for age appropriate cancer screening, routine health maintenance and wellness, infection precautions and age appropriate immunization. [facility] of Present illness Narrative* Carmen Grande MD - 02/06/2022 1:00 PM EDT Images from the original note were not included. Rheumatology Outpatient Clinic Date of Service: 02/06/2022 Patient: Margarita Cuba Medical Record: [id number] Primary Care Physician: No primary care provider on file. Referring Provider: SELF Last Rheumatology visit: [facility] Chief complaint: New Patient and Arthritis Self referral requested for an opinion regarding multiple joint pain. My final recommendations willbe communicated back to the requesting physician by way of shared Medical record or letter to requesting physician via US mail. History of Present Illness Margarita Cuba is a 66 year old female with medical history of Celiac disease, mononucleosis at 17 yrs presents on 02/06/2022 for an in-person visit for evaluation of New Patient and Arthritis. HISTORY OF PRESENT ILLNESS Patient reports pain over hands (DIPs, PIPs), wrists, collar bone and feet, for about 5 years Pain is stable She had left rotator cuff repair over left Shoulder and still has pain over left shoulder which is worse with lying on that side. Other joint pain is worse after activities. Has noted joint swelling only over right index DIP, denies any other joint swelling. Has morning stiffness for 30 min Medications tried for pain - tylenol, NSAIDs doesn't help Reports intermittent worsening of her joint pain when she has widespread pain, those episodes occurafter inadvertent exposure to gluten and symptoms resolves after avoiding gluten. She reports being seen by deck steward many yrs ago and was diagnosed Sjogren and fibromyalgia, was not given any medications so she did not follow up. She also reports dry eyes and reports that her Esme test was <2 mm. Denies history of inflammatory eye disease, psoriasis, history of kidney disease/biopsy, nephrolithiasis, peptic ulcer disease, tuberculosis, 2 miscarriages at week 12 and 16, blood clots, Denies malignancy, pleural/pericardial effusion, CHF, CAD, CVA. Patient-Entered Data PAIN EVALUATION No data found in the last 1 encounters. PROMIS Assessments No flowsheet data found. RAPID 3 James Activities of Daily Living No Data Dress self? - Get in and out of bed? - Walk outdoors? - Wash and dry body? - Get in and out of car? - RAPID 3 Disease Activity Weighed Score Levels: 0 - 1: Near Remission 1.3 - 2.0: Low Severity 2.3 - 4.0: Moderate Severity 4.3 - 10.0: High Severity No flowsheet data found. Review of Systems REVIEW OF SYSTEMS: Joint pain: As above Joint swelling: As above Joint stiffness: 30 min Back/neck pain: Denies Enthesopathic pain: Denies Fever: Denies Change in weight: Denies Lymphadenopathy: Denies Mucosal ulcers: Denies Skin rash: Denies Photosensitive rash: yes Alopecia: Denies Chest Pain: Denies Dyspnea: Denies Cough : Chronic allergic dry cough Difficulty swallowing: Denies Nausea/vomiting: Denies Heartburn: Denies Abdominal Pain: Denies Diarrhea/constipation :Denies Blood in stool : Denies Dysuria/hematuria: Denies Muscle pain: Denies Muscle weakness: Denies Numbness: Sometimes over fingers Headache: yes change in vision: Denies Confusion: Denies Seizures: Denies Raynaud's: Denies Sicca: Yes, dry eyes and mouth, relates to bendryl Past Medical History As in HPI Past Surgical History Left knee cyst removal? Allergy ALLERGIES Allergen Reactions Gluten Intolerance Penicillins Unknown Family History Son and grandkids has celiac disease The patient denies family history of SLE, RA, Sarcoidosis, Scleroderma, IBD or Psoriasis. Social History Deneis smoking and drinking alcohol Current Medications Current Outpatient Medications on File Prior to Visit Medication Sig azithromycin (ZITHROMAX) 250 mg tablet TAKE 2 TABLETS BY MOUTH ON DAY 1, THEN TAKE 1 TABLET BY MOUTH DAILY DAYS 2 THRU 5 diphenhydrAMINE HCl (BENADRYL) 2 % gel Take 25 mg by mouth. lansoprazole (PREVACID) 30 mg capsule Take 30 mg by mouth once daily. fexofenadine HCl (MARY ORAL) Take by mouth. Takes vitamin D, zinc OTC No current facility-administered medications on file prior to visit. Labs Imaging Last XR Hand/Finger - Impression Only XR HAND GENERAL 3V PA/LAT/OBL BILATERAL Exam End: 02/06/2022 2:46 PM (In process) Last MRI Hand - Impression Only No resulted procedures found. Last XR Chest - Impression Only No resulted procedures found. Last XR Cervical Spine - Impression Only No resulted procedures found. Health Maintenance Current Immunizations Never Reviewed No immunizations on file. Physical Exam VITAL SIGNS: BP 128/78 Pulse 66 Wt 179 lb (81.2kg) GENERAL APPEARANCE: Well groomed. In no distress. SKIN: No rash, thickening, nodules, calcifications, discoloration. EYES: PERRL, EOMI HENT: Normal external examination of the ears and nose, lips, oropharynx and tongue. No oropharyngeal lesions, exudate, or sores. Oral cavity appears moist, has pooling of saliva under the tongue. NECK: No mass or asymmetry, no lymphadenopathy. RESPIRATORY: Normal respiratory effort. Clear to auscultation, no wheeze. CARDIOVASCULAR: regular, normal rate, normal heart sounds, no murmur or rub ABDOMEN: BS normal. No bruits, No tenderness, mass, or hepatosplenomegaly. NEUROLOGIC: Alert and oriented x 3. Sensory exam normal. Motor exam: Normal 5+/5+ muscle strength. Normal bulk and tone. MUSCULOSKELETAL EXAMINATION: Soft tissue tender points: None Upper extremities: Shoulders: Full ROM in all directions, tenderness to palpation over left shoulder. No swelling or effusion. Elbows: Full ROM in flexion and extension. No swelling or effusion. No tenderness to palpation to the joint line, olecranon, medial or lateral epicondyles. Wrists: Full ROM in all howe. No swelling or synovitis. No pain with pronation/supination. tenderness to palpation Hands: Full ROM in flexion and extension. Full battery recharger strength. No swelling or synovitis along the MCPs, PIPs, and DIPs. tenderness along the PIPs, and DIPs. Has bony enlargement over DIPS most prominent over right indexand ring DIP Lower extremities: Hips: No tenderness to palpation along greater trochanter, gluteal fossa Knees: Full ROM in flexion and extension. No swelling or effusion. No tenderness to palpation. Ankles: Full ROM in all howe. No swelling or effusion. No tenderness to palpation Feet: No effusion.tenderness to palpation over MTPs. Diagnoses: (M25.50) Pain in joint involving multiple sites (primary encounter diagnosis) (M19.041, M19.042) Primary osteoarthritis of both hands (H04.123) Dry eyes (K90.0) Celiac disease (M62.9) Disorder of muscle, unspecified Impression and Plan 1. Multiple joint pain Patient with joint pain mostly over DIPs No swelling of joints except one DIP On exam there was no synovitis but had bony enlargement of DIPs I have low suspicion for inflammatory arthritis however to further evaluate I will obtain sed rate,CRP, RF, CCP, radiograph of hands and feet to evaluate for erosions. Her joint pain is most likely secondary to osteoarthritis -Discussed current up to date management, health and wellness and integrative medicine approach. I informed that disease modifying drugs has not been found to be beneficial for OA, however there are reports on benefit with exercise. -For pain relief may apply over the counter arthritis cream (voltaren gel, biofreeze, icy hot, asper cream, tiger balm, capsacin, etc.) to painful joints up to four times a day. Avoid contact with eyes. May take ES acetaminophen 1000mg twice a for joint pain. Do not exceed 3000mg /day. May take daily oral anti-inflammatory medication as well but not recommended for patients with history of GI bleeding,heart disease, stroke or renal insufficiency. May apply heat/ice 20minutes on andoff to areas of pain Avoid aggravating triggers. -Recommend exercising 30minutes 3 times a week, recommend weight-bearing aerobic exercises such as walking, dancing, low impact aerobics, elliptical machine, stair climbing, gardening Range of motion exercises and muscle strengthening exercises Recommend avoiding high impact exercises such as jumping, running or jogging or movements where youbend forward and twist the waist, for instance- touching your toes, sit-ups, using row machine -Consider yoga or andrés chi, water aquatics/pool exercise. -Continued healthy diet , improving sleep hygiene/quality, may also consider option of osteopathic or chiropractic manipulation and acupuncture procedures, massage therapy, braces/splints. 2. Sicca symptoms She reports dry eyes with Esme test less than 2 mm and dry mouth She relates her dry eyes and dry mouth to Benadryl Oral cavity appears moist and has salivary pooling under her tongue She reports being diagnosed with Sjogren's by previous deck steward To further evaluate I will obtain MINOR and SSA/SSB 3. Celiac disease She reports worsening of whole body pain upon inadvertent exposure to gluten Continue on gluten-free diet I will obtain vitamin D level 4. Chronic pain/fatigue She also reports widespread pain with fatigue, does not feel fresh in the morning, has short-term memory loss Since underlying sleep apnea may cause or worsen chronic pain, recommend PCP to order sleep studies management include regular graded aerobic exercise (start low and go slow), improving sleep hygieneand quality, continuing with healthy diet, Vit D supplementation, Physical therapy and aquatic pooltherapy. There are some reports on benefits from chriopractic and acupuncture procedures, Yoga, andrés chi, therapeutic massage, and other body-based therapies to relieve muscle spasms and stiffness. Medication, while important, are not first choice and not indicated for all patients, and not the only treatment. Patient education, exercise, self- management skills and alternative therapies help treat fibromyalgia symptoms. Certain patient require anti-depressants, especially if they have a diagnosis of depression. Patients who have other associated disorders, such as depression, would need to be evaluated and treated by their Primary care physician or Psychiatrist. Medications e.g gabapentin/lyrica or savella may be helpful. As discussed, this is a pain syndrome and usually well managed by primary care physicians. In certain cases, a referral to a test specialist and multidisciplinary management may be required, in patients who fail traditional management approach as prescribed by primary care physician and as listed above. 5. Healthcare maintenance/Malignancy screening Defer to PCP Orders this visit: Office Visit on 02/06/22 XR HAND GENERAL 3V PA/LAT/OBL BILATERAL XR FOOT GENERAL 3V AP/LAT/OBL BILATERAL COMP METABOLIC PANEL CBC + DIFF ANTI PAPO ID MINOR BY IFA WITH REFLEX DNA AB DS + CONF BLD VITAMIN D 25 HYDROXY SED RATE WESTERGREN C-REACTIVE PROTEIN (CRP) TSH BLD azithromycin (ZITHROMAX) 250 mg tablet diphenhydrAMINE HCl (BENADRYL) 2 % gel lansoprazole (PREVACID) 30 mg capsule fexofenadine HCl (MARY ORAL) Return in about 1 week (around 02/13/2022). I spent a total of 60 minutes on the date of the service which included preparing to see the patient, [id number] patient care, completing clinical documentation, obtaining and/or reviewing separately obtained history, performing a medically appropriate examination, counseling and educating the pat ient/family/caregiver, and ordering medications, tests, or procedures. Carmen Grande MD, [facility] Rheumatology [facility]* Encounter Date Diagnosis Assessment Notes Treatment Notes Treatment Clinical Notes Dec, Hiatal hernia (ICD-10 - K44.9) Dec, GERD (gastroesophageal reflux disease) (ICD-10 - K21.9) Dec, History of colon polyps (ICD-10 - Z86.010) Cards Off Other 02-19-2022 Evaluation note* Encounter Date Diagnosis Assessment Notes Treatment Notes Treatment Clinical Notes Jun, Sore throat (ICD-10 - J02.9) Jun, Viral upper respiratory illness (ICD-10 - J06.9) Drink plenty fluids, get plenty of rest. Take Mucinex or Sudafed as needed for nasal congestion. Gargle with warm salt water for comfort. Follow-up with your family physician if no improvement in 2 to 3 days [facility] Other Evaluation + Plan note No data available for this section General Surgery [place] Evaluation note* Diagnosis Pain in joint involving multiple sites- Primary Pain in joint, multiple sites Primary osteoarthritis of both hands Dry eyes Tear film insufficiency, unspecified Celiac disease Celiac disease Disorder of muscle, unspecified [facility] [place] [facility] Diagnosis Primary osteoarthritis of both hands- Primary Positive MINOR (antinuclear antibody) Other and unspecified nonspecific immunological findings Pain in joint involving multiple sites Pain in joint, multiple sites documented in this encounter [facility] [place] noteNo [facility] Other Evaluation note* Diagnosis Pain in joint involving multiple sites Pain in joint, multiple sites documented in this encounter [facility] note* Diagnosis Onset Date Resolution Status Celiac disease acute Hepatic steatosis acute [facility] Work Phone: Evaluation note* Diagnosis Cystocele, midline- Primary Vulvar irritation Postmenopausal Asymptomatic postmenopausal status (age-related) (natural) Other screening mammogram Gastroesophageal reflux disease without esophagitis Esophageal reflux [facility] Seborrheic keratosis- Primary Lentigines Xerosis cutis Other specified disease of sebaceous glands Personal history of actinic keratosis Personal history of diseases of skin and subcutaneous tissue documented in this encounter [facility]* Diagnosis Onset Date Resolution Status Admit Date Acute right hip pain acute November 11, 2024 10:00am [facility] Work Phone: History general Narrative - Reported* Type Description Date Medical History varicose veins Medical History Celiac disease Surgical History rotator cuff tear repair right Surgical History knee arthroscopy right Surgical History knee surgery right Surgical History D&C Surgical History Foot Surgery left Surgical History EVLT/MICRO 11/15/2017 Hospitalization History childbirth [facility] Other Hospital Discharge instructions No data available for this section General Surgery [place] note No data available for this section General Surgery [place] Reason for referral (narrative)* Diagnostic Procedure Only (Routine) - Closed Specialty Diagnoses / Procedures Referred By Contac t Referred To Contact XR IMAGING Diagnoses Pain in joint involving multiple sites Procedures XR FOOT GENERAL 3V AP/LAT/OBL BILATERAL RADEX FOOT COMPLETE MINIMUM 3 VIEWS Carmen Grande MD [address] [place] [address] Xr Imaging Referral ID Status Reason Start Date Expiration Date V isits Requested Visits Authorized [id number] Closed Auto-Generate d Referral 02/06/2022 03/08/2023 1 1 * Diagnostic Procedure Only (Routine) - Closed Specialty Diagnoses / Procedures Referred By Donovan navas Referred To Contact XR IMAGING Diagnoses Pain in joint involving multiple sites Procedures XR HAND GENERAL 3V PA/LAT/OBL BILATERAL RADEX HAND MINIMUM 3 VIEWS Carmen Grande MD [address] [facility] [place] [address] Xr Imaging Referral ID Status Reason Start Date Expiration Date V isits Requested Visits Authorized [id number] Closed Auto-Generate d Referral 02/06/2022 03/08/2023 1 1 [facility] for referral (narrative)* Diagnostic Procedure Only (Routine) - Closed Specialty Diagnoses / Procedures Referred By Contac t Referred To Contact XR IMAGING Diagnoses Pain in joint involving multiple sites Procedures XR FOOT GENERAL 3V AP/LAT/OBL BILATERAL RADEX FOOT COMPLETE MINIMUM 3 VIEWS Carmen Grande MD [address] [place] [id number] Xr Imaging Referral ID Status Reason Start Date Expiration Date V isits Requested Visits Authorized [id number] Closed Auto-Generate d Referral 02/06/2022 03/08/2023 1 1 * Diagnostic Procedure Only (Routine) - Closed Specialty Diagnoses / Procedures Referred By Contac t Referred To Contact XR IMAGING Diagnoses Pain in joint involving multiple sites Procedures XR HAND GENERAL 3V PA/LAT/OBL BILATERAL RADEX HAND MINIMUM 3 VIEWS Carmen Grande MD [address] [place] [address] Xr Imaging Referral ID Status Reason Start Date Expiration Date V isits Requested Visits Authorized [id number] Closed Auto-Generate d Referral 02/06/2022 03/08/2023 1 1 [facility]No reason for referral information [facility] Work Phone: Reason for visit Narrative* Diagnostic Procedure Only (Routine) - Closed Specialty Diagnoses / Procedures Referred By Contac t Referred To Contact XR IMAGING Diagnoses Pain in joint involving multiple sites Procedures XR FOOT GENERAL 3V AP/LAT/OBL BILATERAL RADEX FOOT COMPLETE MINIMUM 3 VIEWS Carmen Grande MD [address] [place] [address] Xr Imaging Referral ID Status Reason Start Date Expiration Date V isits Requested Visits Authorized [id number] Closed Auto-Generate d Referral 02/06/2022 03/08/2023 1 1 [facility] Summary Purpose Family History Relationship Condition Age at Onset Recorded Date/T tashia brother Varicose veins Unknown father Unknown Family history of lung cancer Unknown Malignant neoplasm Unknown Not Specified Unknown Congestive heart failure Unknown Heart disease Unknown natural son Seizure disorder Unknown sister Diabetes mellitus Unknown Relationship Condition Age at Onset Recorded Date/T tashia brother Varicose veins Unknown father Unknown Family history of lung cancer Unknown Malignant neoplasm Unknown mother Unknown Congestive heart failure Unknown Heart disease Unknown son Seizure disorder Unknown sister Diabetes mellitus Unknown Advance Directives Advance Directive Response Recorded Date/ Time Advance Directives No June 04, 2017 11:42am Reason for Referral Reason Liver steatosis - la bs and US in chart. Diagnosis 1 Steatosis of liver ( K76.0) Referral Organization [facility] jane Referring Provider First Name Brian Referring Provider Last Name Francisca Referring Provider Specialty [facility] cine Referred Organization [facility] Referred Address [address] [facility],[address],[address] Referred Provider Specialty Gastroentero logy Referral Priority Routine Reason Due for colonoscopy. Possible EGD for hiatal hernia Diagnosis 1 Polyp of colon, unsp ecified part of colon, unspecified type (K63.5) Referral Organization [facility] jane Referring Provider First Name Brian Referring Provider Last Name Francisca Referring Provider Specialty [facility] Referred Organization [facility] Referred Provider Raghavendra Phillips Referred Address [address] [place], [place],[address] Referred Provider Specialty Surgery Referral Priority Routine Chief Complaint and Reason for Visit Chief Complaint Dr Espinosa referring f or liver steatosis and celiac Reason for Visit Celiac disease Hepatic steatosis Chief Complaint Dr Espinosa referring f or liver steatosis and celiac K76.0;E55.9 Reason for Visit Celiac sprue Hepatic steatosis Chief Complaint Dr Espinosa referring f or liver steatosis and celiac K76.0;E55.9 fatty liver follow up fibroscan/labs Reason for Visit Celiac sprue Hepatic steatosis Chief Complaint follow up fibroscan/ labs Sinus infection Reason for Visit Celiac sprue Hepatic steatosis Chief Complaint Admit Date hip pain November 11, 2024 10:0 0am Reason for Visit Admit Date Acute right hip pain November 11, 2024 10: 00am Chief Complaint Admit Date hip pain November 11, 2024 10:0 0am wellness January 15, 2025 10 :56am Reason for Visit Admit Date Acute right hip pain November 11, 2024 10: 00am Elevated liver enzymes January 15, 2025 10:56am Additional Source Comments INFORMATION SOURCE (unrecogn ized section and content) DATE CREATED AUTHOR 03/19/2020 [facility] DATE CREATED AUTHOR AUTHOR'S ORGANIZ ATION 02/18/2022 [facility] DATE CREATED AUTHOR AUTHOR'S ORGANIZ ATION 03/12/2022 [facility] dical Specialist DATE CREATED AUTHOR AUTHOR'S ORGANIZ ATION 09/14/2022 [facility] DATE CREATED AUTHOR AUTHOR'S ORGANIZ ATION 10/04/2022 [facility] DATE CREATED AUTHOR AUTHOR'S ORGANIZ ATION 05/06/2024 [facility] DATE CREATED AUTHOR AUTHOR'S ORGANIZ ATION 09/16/2024 [facility] EPIC REASON FOR VISIT (unrecogniz ed section and content) Reason Comments New Patient Arthritis Reason Comments Recheck discuss test results Reason Comments Gynecologic Exam Patient here for a y early. Denies problems. Mammogram and Dexa scan order sent to [facility]. Colonoscopy 2022 Would like refill on estradiol (Estrace) vaginal cream. Reason Comments Skin Check Source Comments (unrecognize d section and content) In the event this informatio n is protected by the Federal Confidentiality of Alcohol and Drug Abuse Patient Records regulations: The Federal rules restrict any use of the information to criminally investigate or prosecute any alcohol or drug abuse patient.[facility] the event this information is protected by the Federal Confidentiality of Alcohol and Drug Abuse Patient Records regulations: The Federal rules restrict any use of the information to criminally investigate or prosecute any alcohol or drug abuse patient.[facility] the event this information is protected by the Federal Confidentiality of Alcohol and Drug Abuse Patient Records regulations: The Federal rules restrict any use of the information to criminally investigate or prosecute any alcohol or drug abuse patient.[facility] Care Teams (unrecognized sec tion and content) Architecture Manager Relationship Specialty Start Date End Date Brian Espinosa MD [address] [place] [facility] [place] [address] PCP - General Family Medicine 02/06/22 Architecture Manager Relationship Specialty Start Date End Date Brian Espinosa MD [address] [place] [facility] [place] [address] PCP - General Family Medicine 02/06/22 Architecture Manager Relationship Specialty Start Date End Date Brian Espinosa MD [address] [facility] [place] [address] PCP - General Family Medicine 02/06/22 Team Status: Active Member Role Status Dates Brian Espinosa MD Primary Care Provider Active Team Status: Inactive Member Role Status Dates Brian Espinosa MD Primary Care Provider Active Start: September 04, 2023 End: September 04, 2023 Jose Cruz Root MD Attending Provider Active Start: September 04, 2023 End: September 04, 2023 Team Status: Active Member Role Status Dates Brian Espinosa MD Primary Care Provider Active Start: September 19, 2023 Jose Cruz Root MD Other Provider Active Start: September 19, 2023 Joshua Mary MD Attending Provider Active S tart: September 19, 2023 Team Status: Inactive Member Role Status Dates Brian Espinosa MD Primary Care Provider Active Start: November 20, 2023 End: November 20, 2023 Jose Cruz Root MD Attending Provider Active Start: November 20, 2023 End: November 20, 2023 Team Status: Inactive Member Role Status Dates Brian Espinosa MD Primary Care Provide r, Attending Provider Active Start: January 22, 2024 End: January 22, 2024 Architecture Manager Relationship Specialty Start Date End Date Brian Espinosa MD [address] [place] [address] PCP - General 11/20/22 Architecture Manager Relationship Specialty Start Date End Date Brian Espinosa MD [address] [facility] [place] [address] PCP - General 11/20/22 Architecture Manager Relationship Specialty Start Date End Date Brian Espinosa MD [address] [facility] [place] [id number] PCP - General 11/20/22 Architecture Manager Relationship Specialty Start Date End Date Brian Espinosa MD [address] [facility] [place] [id number] PCP - General 11/20/22 Team Status: Inactive Member Role Status Dates Brian Espinosa MD Primary Care Provider Active Start: November 11, 2024 End: November 11, 2024 Brian Espinosa MD Attending Provider Active St art: November 11, 2024 End: November 11, 2024 Team Status: Inactive Member Role Status Dates Brian Espinosa MD Primary Care Provider Active Start: January 15, 2025 End: January 15, 2025 Brian Espinosa MD Attending Provider Active St art: January 15, 2025 End: January 15, 2025 Goals (unrecognized section and content) Goals may be documented in a n alternate section FOR RECORDS PERTAINING TO PATIENTS WHO ARE OR HAVE BEEN ENROLLED IN A CHEMICAL DEPENDENCY/SUBSTANCEABUSE PROGRAM, SOME INFORMATION MAY BE OMITTED. This clinical summary was aggregated from multiple sources. Caution should be exercised in using it in the provision of clinical care. This summary normalizes information from multiple sources, and as a consequence, information in this document may materially change the coding, format and clinical context of patient data. In addition, data may be omitted in some cases. CLINICAL DECISIONS SHOULD BE BASED ON THE PRIMARY CLINICAL RECORDS. [facility] MD-IT [facility]. provides no warranty or guarantee of the accuracy or completeness of information in this document.
[2025-01-29 09:44] LABS: Alanine Aminotransferase 29 U/L (14-59); Albumin Globulin Ratio 1.0; Albumin Level 3.9 g/dL (3.4-5.0); Alkaline Phosphatase 88 U/L (46-116); Anion Gap 12.8; Aspartate Amino Transferase 18 U/L (15-37); Blood Urea Nitrogen 20.0 mg/dL (7.0-18.0); Calcium 9.5 mg/dL (8.5-10.1); Carbon Dioxide 29.2 mmol/L (21.0-32.0); Chloride 107 mmol/L (98-107); Estimated GFR (African America >60 (>=60 mL/min/1.73m^2); Estimated GFR (Non-African Ame >60 (>=60 mL/min/1.73m^2); Globulin 4.0 g/dL; Glucose 101 mg/dL (74-106); Potassium 4.0 mmol/L (3.5-5.1); Sodium 145 mmol/L (136-145); Total Protein 7.9 g/dL (6.4-8.2)
== END 2025-01-29 08:26 | disposition home or self-care (01) ==
LOC: LAB 08:28
PROVIDERS: PCP Family Medicine; Visit Provider Family Medicine
DX: R74.8 Abnormal levels of other serum enzymes (principal)
CPT/HCPCS: 36415; 80053